=== PATIENT | female | born 1965 | race Caucasian/White ===

== ENCOUNTER → 2020-10-28 13:24 | Outpatient (BNVA) | payer OTHER, SELFPAY | PROVIDERS: PCP Internal Medicine; Visit Provider Surgery ==

== ENCOUNTER 2020-12-01 07:01 | Outpatient (REF) | payer OTHER, SELFPAY ==
[2020-12-01 11:50] LABS: Cholesterol 210 mg/dL; HDL Cholesterol 77 mg/dL; LDL Cholesterol Calculated 114 mg/dl; Triglycerides 98 mg/dL
[2020-12-01 11:54] LABS: TSH reflex Free T4 4.91 uIU/mL (0.32-4.0)
[2020-12-01 12:39] LABS: Free T4 (Free Thyroxine) 0.89 ng/dL (0.71-1.85)
== END 2020-12-01 07:02 | disposition home or self-care (01) ==
LOC: HO.HMGCLDS 07:01
PROVIDERS: PCP Internal Medicine; Visit Provider Internal Medicine
DX: Z00.00 Encounter for general adult medical examination without abnormal findings (principal); E03.9 Hypothyroidism, unspecified; E78.5 Hyperlipidemia, unspecified
CPT/HCPCS: 36415; 80061; 84439; 84443

== ENCOUNTER 2020-12-07 13:10 | Outpatient (REF) | payer OTHER, SELFPAY ==
--- NOTE | ~2020-12-07 | CT_ITS ---
EXAMINATION: CT ABDOMEN AND PELVIS WITH CONTRAST CLINICAL INFORMATION: Ventral hernia without obstruction or gangrene COMPARISON: Previous CT of the abdomen and pelvis November 2018 TECHNIQUE: Multidetector volumetric images were obtained from the superior aspect of the liver through the pubic symphysis following administration 85 mL of Omnipaque 350 intravenous contrast. Sagittal and coronal reformatted images were obtained on the technologist's workstation. Oral contrast: Yes This CT examination was performed using dose optimization techniques as appropriate, variously including the following: *Automated exposure control *Adjustment of mA and/or kV according to patient size (this includes techniques or standardized protocols for targeted exams where dose is matched to indication/reason for exam; i.e. extremities or head) *Use of iterative reconstruction technique DLP: 769 mGy-cm FINDINGS: LUNG BASES: The visualized lung bases are unremarkable. LIVER, GALLBLADDER, AND BILIARY TREE: The liver is low in attenuation suggestive of fatty infiltration. The gallbladder has been removed. PANCREAS: Unremarkable. SPLEEN: Unremarkable. ADRENAL GLANDS: Unremarkable. KIDNEYS AND URETERS: The kidneys are normal in size, shape, and attenuation. No hydronephrosis, hydroureter, or calculi seen. There is a small low-attenuation lesion in the lower pole the left kidney that is stable and probably represents a small cyst. No perinephric stranding. BLADDER: Empty and not well evaluated. GASTROINTESTINAL TRACT: There is diverticulosis of the colon. There are postsurgical changes to the distal sigmoid colon. There is a large broad-based ventral hernia containing small and large bowel. There is no evidence of obstruction. The appendix is not identified. The stomach is unremarkable. ABDOMINAL WALL: There is evidence of previous ventral hernia repair with mesh. There is a large recurrent broad-based abdominal wall hernia containing small and large bowel at the inferior margin of the mesh. There is no evidence of obstruction. LYMPH NODES: Normal. VASCULAR: Unremarkable. PELVIC VISCERA: The has been removed. There is a new 1.5 x 1.7 cm right pelvic cyst questionable for a right adnexal cyst. This is similar to previous exam. OSSEOUS STRUCTURES: There are mild degenerative changes of the spine. There is curvature of the lower lumbar spine to the right. There is soft tissue calcification or ossification adjacent to the right greater trochanter. CT/CT abdomen pelvis w con IMPRESSION: Large broad-based ventral hernia at the inferior margin of the mesh containing small and large bowel. No evidence of obstruction. Diverticulosis of the colon. No evidence of diverticulitis. Postsurgical changes to the distal sigmoid colon. Fatty liver. Stable small right pelvic cyst probably representing an adnexal cyst.
[2020-12-07 15:09] LABS: Blood Urea Nitrogen 14 mg/dL (9-16); Estimated Glomerular Filt Rate > 60
== END 2020-12-07 13:11 | disposition home or self-care (01) ==
LOC: HO.CT 13:10
PROVIDERS: PCP Internal Medicine; Visit Provider Surgery
DX: K43.9 Ventral hernia without obstruction or gangrene (principal)
CPT/HCPCS: 36415; 74177; 82565; 84520

== ENCOUNTER → 2020-12-10 12:57 | Outpatient (BNVA) | payer OTHER, SELFPAY | PROVIDERS: PCP Internal Medicine; Visit Provider Surgery | DX: K43.9 Ventral hernia without obstruction or gangrene (principal) | CPT/HCPCS: 99212 ==

== ENCOUNTER 2021-02-22 06:52 | Outpatient (REF) | payer OTHER, SELFPAY ==
[2021-02-22 12:00] LABS: Alanine Aminotransferase 20 U/L (0-31); Albumin Level 4.3 g/dL (3.5-5.0); Alkaline Phosphatase 78 U/L (39-117); Anion Gap 11 (12-20); Aspartate Amino Transferase 21 U/L (5-31); Bilirubin Total 0.7 mg/dL (0.0-1.0); Blood Urea Nitrogen 17 mg/dL (9-16); Calcium 9.3 mg/dL (8.4-10.2); Carbon Dioxide 29 mmol/L (22-29); Chloride 104 mmol/L (96-108); Estimated Glomerular Filt Rate > 60; Glucose Fasting 103 mg/dL (60-99); Potassium 4.2 mmol/L (3.3-5.1); Sodium 140 mmol/L (135-145); Total Protein 6.9 g/dL (6.5-8.0)
[2021-02-22 12:06] LABS: TSH reflex Free T4 1.66 uIU/mL (0.32-4.0)
== END 2021-02-22 06:53 | disposition home or self-care (01) ==
LOC: HO.HMGCLDS 06:52
PROVIDERS: PCP Internal Medicine; Visit Provider Internal Medicine
DX: E78.5 Hyperlipidemia, unspecified (principal); E03.9 Hypothyroidism, unspecified
CPT/HCPCS: 36415; 80053; 84443

== ENCOUNTER 2021-03-04 13:06 | Outpatient (REF) | payer OTHER, SELFPAY ==
--- NOTE | ~2021-03-04 | XR_ITS ---
EXAMINATION: XR CERVICAL SPINE CLINICAL INFORMATION: Cervical/neck pain COMPARISON: Radiographs cervical spine 10/07/2016. TECHNIQUE: 3 views of the cervical spine were obtained. FINDINGS: There is straightening cervical lordosis similar to prior exam 2017. There is no cervical vertebral compression, spondylolisthesis, destructive process, or prevertebral soft tissue swelling. The odontoid appears intact. There are mild degenerative disc changes again seen at C5-C6 and C6-C7 with disc narrowing and vertebral spurring. No erosive changes. XR/XR cervical spine 2V IMPRESSION: Degenerative disc changes C5-C6 and C6-C7.
--- NOTE | ~2021-03-04 | XR_ITS ---
EXAMINATION: BILATERAL SHOULDER. CLINICAL INFORMATION: Bilateral shoulder pain. COMPARISON: None TECHNIQUE: 3 views each shoulder. FINDINGS: Right shoulder: There is mild reduction in right AC joint and glenohumeral joint spaces with mild periarticular spurring. No acute fracture, dislocation or lytic process seen. The soft tissues are normal. Left shoulder: There is loss of left AC joint and minimal joint space with periarticular spurring. No acute fracture, dislocation or lytic process seen. The soft tissues are normal. XR/XR shoulder RT min 2V IMPRESSION: Mild degenerative changes bilateral shoulder joints slightly worse in the right shoulder joint.
--- NOTE | ~2021-03-04 | XR_ITS ---
EXAMINATION: XR LUMBOSACRAL SPINE CLINICAL INFORMATION: M54.5 - Low back pain COMPARISON: CT abdomen and pelvis 12/07/2020, radiographs lumbar spine 10/07/2016 TECHNIQUE: Three views of the lumbosacral spine. FINDINGS: There is normal lumbar segmentation with 5 nonrib-bearing lumbar vertebrae of normal height and normal lumbar lordosis. Again, there is a gentle levocurvature lumbar spine. There is no lumbar vertebral compression, spondylolisthesis, or destructive process. Again, mild degenerative changes are present with multilevel vertebral body spurring. There are borderline degenerative disc changes at T12-L1 and L1-L2. Mild facet degeneration is present at lumbosacral junction. The SI joints and visualized sacrum are unremarkable. The bowel gas is normal. There are surgical clips again noted overlying central pelvis and mesh tacks from prior hernia repair. XR/XR lumbar spine 2-3V IMPRESSION: 1. Mild degenerative changes with multilevel vertebral spurring. 2. Borderline disc narrowing T12-L1 and L1-L2. Mild facet degeneration L5-S1. 3. No vertebral compression, spondylolisthesis, destructive process.
--- NOTE | ~2021-03-04 | XR_ITS ---
EXAMINATION: BILATERAL SHOULDER. CLINICAL INFORMATION: Bilateral shoulder pain. COMPARISON: None TECHNIQUE: 3 views each shoulder. FINDINGS: Right shoulder: There is mild reduction in right AC joint and glenohumeral joint spaces with mild periarticular spurring. No acute fracture, dislocation or lytic process seen. The soft tissues are normal. Left shoulder: There is loss of left AC joint and minimal joint space with periarticular spurring. No acute fracture, dislocation or lytic process seen. The soft tissues are normal. XR/XR shoulder LT min 2V IMPRESSION: Mild degenerative changes bilateral shoulder joints slightly worse in the right shoulder joint.
== END 2021-03-04 13:07 | disposition home or self-care (01) ==
LOC: HO.HMGCX 13:06
PROVIDERS: PCP Internal Medicine; Visit Provider Internal Medicine
DX: M54.5 Low back pain (principal); M25.511 Pain in right shoulder; M25.512 Pain in left shoulder
CPT/HCPCS: 72040; 72100; 73030

== ENCOUNTER → 2021-03-09 12:52 | Outpatient (BNVA) | payer OTHER, SELFPAY | PROVIDERS: PCP Internal Medicine; Visit Provider Orthopaedic Surgery | DX: M75.41 Impingement syndrome of right shoulder (principal) | CPT/HCPCS: 20610; 99202; J1040 ==

== ENCOUNTER → 2021-03-11 11:11 | Outpatient (BNVA) | payer OTHER, SELFPAY | PROVIDERS: PCP Internal Medicine; Visit Provider Dietitian, Registered | DX: E66.9 Obesity, unspecified (principal); E78.5 Hyperlipidemia, unspecified; E03.9 Hypothyroidism, unspecified; Z68.39 Body mass index [BMI] 39.0-39.9, adult; Z88.1 Allergy status to other antibiotic agents; Z88.0 Allergy status to penicillin; Z88.2 Allergy status to sulfonamides; Z88.8 Allergy status to other drugs, medicaments and biological substances | CPT/HCPCS: 97802 ==

== ENCOUNTER → 2021-04-22 10:24 | Outpatient (BNVA) | payer OTHER, SELFPAY | PROVIDERS: PCP Internal Medicine; Visit Provider Dietitian, Registered | DX: E66.9 Obesity, unspecified (principal) | CPT/HCPCS: 97803 ==

== ENCOUNTER → 2021-06-03 10:28 | Outpatient (BNVA) | payer OTHER, SELFPAY | PROVIDERS: PCP Internal Medicine; Visit Provider Dietitian, Registered | DX: E66.9 Obesity, unspecified (principal) | CPT/HCPCS: 97803 ==

== ENCOUNTER 2021-06-28 06:47 | Outpatient (REF) | payer OTHER, SELFPAY ==
[2021-06-28 11:42] LABS: Hematocrit 42.5 % (37.0-47.0); Hemoglobin 13.4 g/dl (12.0-16.0); Mean Corpuscular HGB Conc 31.5 g/dl (31.0-35.0); Mean Corpuscular Hemoglobin 26.5 pg (27.0-33.0); Mean Platelet Volume 10.6 fL (9.4-12.3); Platelet Count 252 X10*3/uL (160-400); Red Blood Count 5.06 X10*6/uL (4.20-5.50); Red Cell Distribution Width 14.4 % (11.0-16.0); White Blood Count 6.5 X10*3/uL (4.8-10.8)
[2021-06-28 11:54] LABS: Estimated Average Glucose 111 mg/dL; Hemoglobin A1c % 5.5 %
[2021-06-28 12:03] LABS: Alanine Aminotransferase 19 U/L (0-31); Albumin Level 4.3 g/dL (3.5-5.0); Alkaline Phosphatase 80 U/L (39-117); Anion Gap 14 (12-20); Aspartate Amino Transferase 20 U/L (5-31); Bilirubin Total 0.7 mg/dL (0.0-1.0); Blood Urea Nitrogen 13 mg/dL (9-16); Calcium 9.3 mg/dL (8.4-10.2); Carbon Dioxide 28 mmol/L (22-29); Chloride 105 mmol/L (96-108); Cholesterol 223 mg/dL; Estimated Glomerular Filt Rate > 60; Glucose Fasting 106 mg/dL (60-99); HDL Cholesterol 68 mg/dL; LDL Cholesterol Calculated 136 mg/dl; Potassium 3.9 mmol/L (3.3-5.1); Sodium 143 mmol/L (135-145); Total Protein 6.8 g/dL (6.5-8.0); Triglycerides 95 mg/dL
[2021-06-28 12:15] LABS: TSH reflex Free T4 1.77 uIU/mL (0.32-4.0)
== END 2021-06-28 06:48 | disposition home or self-care (01) ==
LOC: HO.HMGCLDS 06:47
PROVIDERS: PCP Internal Medicine; Visit Provider Internal Medicine
DX: Z00.00 Encounter for general adult medical examination without abnormal findings (principal); E03.9 Hypothyroidism, unspecified; E78.5 Hyperlipidemia, unspecified; M79.7 Fibromyalgia
CPT/HCPCS: 36415; 80053; 80061; 83036; 84443; 85027

== ENCOUNTER → 2021-08-03 10:49 | Outpatient (BNVA) | payer OTHER, SELFPAY | PROVIDERS: PCP Internal Medicine; Visit Provider Dietitian, Registered | DX: E66.9 Obesity, unspecified (principal) | CPT/HCPCS: 97803 ==

== ENCOUNTER 2021-09-21 07:00 | Outpatient (REF) | payer OTHER, SELFPAY ==
[2021-09-21 11:31] LABS: Hematocrit 43.3 % (37.0-47.0); Hemoglobin 13.6 g/dl (12.0-16.0); Mean Corpuscular HGB Conc 31.4 g/dl (31.0-35.0); Mean Corpuscular Hemoglobin 26.4 pg (27.0-33.0); Mean Corpuscular Volume 84.1 fL (80.0-98.0); Mean Platelet Volume 10.7 fL (9.4-12.3); Platelet Count 277 X10*3/uL (160-400); Red Blood Count 5.15 X10*6/uL (4.20-5.50); Red Cell Distribution Width 14.7 % (11.0-16.0); White Blood Count 6.9 X10*3/uL (4.8-10.8)
[2021-09-21 11:57] LABS: Estimated Average Glucose 114 mg/dL; Hemoglobin A1c % 5.6 %
[2021-09-21 12:09] LABS: TSH reflex Free T4 2.19 uIU/mL (0.32-4.0)
[2021-09-21 12:16] LABS: Alanine Aminotransferase 16 U/L (0-31); Albumin Level 4.2 g/dL (3.5-5.0); Alkaline Phosphatase 88 U/L (39-117); Anion Gap 12 (12-20); Aspartate Amino Transferase 16 U/L (5-31); Bilirubin Total 0.5 mg/dL (0.0-1.0); Blood Urea Nitrogen 20 mg/dL (9-16); Calcium 9.4 mg/dL (8.4-10.2); Carbon Dioxide 29 mmol/L (22-29); Chloride 106 mmol/L (96-108); Cholesterol 226 mg/dL; Estimated Glomerular Filt Rate > 60; Glucose Fasting 109 mg/dL (60-99); HDL Cholesterol 68 mg/dL; LDL Cholesterol Calculated 142 mg/dl; Potassium 4.1 mmol/L (3.3-5.1); Sodium 143 mmol/L (135-145); Total Protein 7.1 g/dL (6.5-8.0); Triglycerides 82 mg/dL
== END 2021-09-21 07:01 | disposition home or self-care (01) ==
LOC: HO.HMGCLDS 07:00
PROVIDERS: Visit Provider Internal Medicine
DX: E03.9 Hypothyroidism, unspecified (principal); E78.5 Hyperlipidemia, unspecified; R73.9 Hyperglycemia, unspecified
CPT/HCPCS: 36415; 80053; 80061; 83036; 84443; 85027

== ENCOUNTER → 2021-11-02 13:44 | Outpatient (BNVA) | payer OTHER, SELFPAY | PROVIDERS: PCP Internal Medicine; Visit Provider Dietitian, Registered | DX: E66.9 Obesity, unspecified (principal); M79.7 Fibromyalgia; R73.9 Hyperglycemia, unspecified; E03.9 Hypothyroidism, unspecified; E78.5 Hyperlipidemia, unspecified; Z68.39 Body mass index [BMI] 39.0-39.9, adult; Z88.1 Allergy status to other antibiotic agents; Z88.0 Allergy status to penicillin; Z88.2 Allergy status to sulfonamides; Z88.8 Allergy status to other drugs, medicaments and biological substances; Z98.84 Bariatric surgery status; Z45.89 Encounter for adjustment and management of other implanted devices; Z71.3 Dietary counseling and surveillance | CPT/HCPCS: 97803 ==

== ENCOUNTER 2022-03-14 06:53 | Outpatient (REF) | payer OTHER, SELFPAY ==
[2022-03-14 11:34] LABS: Estimated Average Glucose 114 mg/dL; Hemoglobin A1c % 5.6 %
[2022-03-14 12:03] LABS: Alanine Aminotransferase 15 U/L (0-31); Albumin Level 4.2 g/dL (3.5-5.0); Alkaline Phosphatase 75 U/L (39-117); Anion Gap 14 (12-20); Aspartate Amino Transferase 18 U/L (5-31); Bilirubin Total 0.4 mg/dL (0.0-1.0); Blood Urea Nitrogen 14 mg/dL (9-16); Calcium 9.2 mg/dL (8.4-10.2); Carbon Dioxide 25 mmol/L (22-29); Chloride 107 mmol/L (96-108); Cholesterol 221 mg/dL; Estimated Glomerular Filt Rate > 60; Glucose Fasting 103 mg/dL (60-99); HDL Cholesterol 73 mg/dL; LDL Cholesterol Calculated 128 mg/dl; Sodium 142 mmol/L (135-145); Total Protein 6.7 g/dL (6.5-8.0); Triglycerides 102 mg/dL
== END 2022-03-14 06:54 | disposition home or self-care (01) ==
LOC: HO.HMGCLDS 06:53
PROVIDERS: Visit Provider Internal Medicine
DX: E03.9 Hypothyroidism, unspecified (principal); E78.5 Hyperlipidemia, unspecified; R73.9 Hyperglycemia, unspecified
CPT/HCPCS: 36415; 80053; 80061; 83036

== ENCOUNTER → 2022-04-19 15:39 | Outpatient (REF) | payer OTHER, SELFPAY | LOC: HO.SL 15:39 | PROVIDERS: PCP Internal Medicine; Visit Provider Internal Medicine | DX: G47.30 Sleep apnea, unspecified (principal); R06.83 Snoring | CPT/HCPCS: 95806 ==

== ENCOUNTER 2022-09-20 07:22 | Outpatient (REF) | payer OTHER, SELFPAY ==
[2022-09-20 11:40] LABS: MANUAL DIFF FLAG NO
[2022-09-20 11:57] LABS: Basophils Absolute Auto 0.1 X10*3/uL (0.0-0.2); Basophils Percent Auto 0.8 % (0-2); Eosinophils Absolute Auto 0.7 X10*3/uL (0.0-0.4); Eosinophils Percent Auto 10.1 % (0-4); Hematocrit 43.8 % (37.0-47.0); Hemoglobin 13.9 g/dl (12.0-16.0); Imm Gran Abs Auto 0.01 X10*3/uL (0.00-0.03); Imm Gran Pct Auto 0.2 % (0.0-0.4); Lymphocytes Absolute Auto 1.6 X10*3/uL (1.2-4.9); Lymphocytes Percent Auto 24.2 % (20-40); Mean Corpuscular HGB Conc 31.7 g/dl (31.0-35.0); Mean Corpuscular Hemoglobin 26.6 pg (27.0-33.0); Mean Corpuscular Volume 83.9 fL (80.0-98.0); Mean Platelet Volume 10.7 fL (9.4-12.3); Monocytes Absolute Auto 0.4 X10*3/uL (0.1-1.2); Monocytes Percent Auto 6.6 % (2-11); Neutrophils Absolute Auto 3.8 x10*3/uL (2.0-8.3); Neutrophils Percent Auto 58.1 % (45-73); Platelet Count 270 X10*3/uL (160-400); Red Blood Count 5.22 X10*6/uL (4.20-5.50); Red Cell Distribution Width 13.8 % (11.0-16.0); White Blood Count 6.5 X10*3/uL (4.8-10.8)
[2022-09-20 12:18] LABS: Estimated Average Glucose 111 mg/dL; Hemoglobin A1c % 5.5 %
[2022-09-20 12:35] LABS: Alanine Aminotransferase 20 U/L (0-31); Albumin Level 4.2 g/dL (3.5-5.0); Alkaline Phosphatase 86 U/L (39-117); Anion Gap 15 (12-20); Aspartate Amino Transferase 20 U/L (5-31); Bilirubin Total 0.6 mg/dL (0.0-1.0); Blood Urea Nitrogen 16 mg/dL (9-16); Calcium 9.3 mg/dL (8.4-10.2); Carbon Dioxide 28 mmol/L (22-29); Chloride 105 mmol/L (96-108); Cholesterol 215 mg/dL; Estimated Glomerular Filt Rate > 60; Glucose Fasting 105 mg/dL (60-99); HDL Cholesterol 70 mg/dL; LDL Cholesterol Calculated 126 mg/dl; Potassium 4.2 mmol/L (3.3-5.1); Sodium 144 mmol/L (135-145); TSH reflex Free T4 4.55 uIU/mL (0.32-4.0); Total Protein 6.6 g/dL (6.5-8.0); Triglycerides 97 mg/dL
[2022-09-20 12:38] LABS: Creatinine Urine 198.21 mg/dL
[2022-09-20 13:49] LABS: Free T4 (Free Thyroxine) 0.95 ng/dL (0.71-1.85)
== END 2022-09-20 07:23 | disposition home or self-care (01) ==
LOC: HO.HMGCLDS 07:22
PROVIDERS: PCP Internal Medicine; Visit Provider Internal Medicine
DX: E03.9 Hypothyroidism, unspecified (principal); E78.5 Hyperlipidemia, unspecified; R73.9 Hyperglycemia, unspecified
CPT/HCPCS: 36415; 80053; 80061; 82043; 83036; 84439; 84443; 85025

== ENCOUNTER 2023-02-13 06:45 | Outpatient (REF) | payer OTHER, SELFPAY ==
[2023-02-13 12:13] LABS: TSH reflex Free T4 3.82 uIU/mL (0.32-4.0)
== END 2023-02-13 06:46 | disposition home or self-care (01) ==
LOC: HO.HMGCLDS 06:45
PROVIDERS: PCP Internal Medicine; Visit Provider Internal Medicine
DX: E03.9 Hypothyroidism, unspecified (principal)
CPT/HCPCS: 36415; 84443

== ENCOUNTER 2023-03-06 13:25 | Outpatient (AMB) | payer OTHER, SELFPAY ==
[2023-03-06 14:09] VITALS: BP 102/60; PULSE 82; TEMP 35.7; O2SAT 97
--- NOTE | 2023-03-06 14:09 | MHC.OFFWIV ---
Intake Vital Signs 03/06/23 14:09 Height 5 ft 5 in BP 102/60 Blood Pressure Location Lt brachial Position Sitting Pulse 82 Pulse Source Pulse Oximeter Temp 96.3 F L Temp Source Temporal Artery Scan Pulse Oximetry (%) 97 Oxygen Delivery Method Room Air Intake Visit Reasons: EP, Abdominal Pain Intake Note: Pt is here c/o abdominal pain. Patient Tobacco Use Status: Never used Tobacco Allergies ciprofloxacin [From CIPRO] Allergy (Intermediate, Verified 03/06/23 14:50) RASH Penicillins [PENICILLINS] Allergy (Intermediate, Verified 03/06/23 14:50) RASH ropinirole [From REQUIP] Allergy (Intermediate, Verified 03/06/23 14:50) RASH sulfamethoxazole [From BACTRIM] Allergy (Intermediate, Verified 03/06/23 14:50) RASH Medication List - Last Reconciled 03/06/23 by Luis F De Luna MD acetaminophen ER (Tylenol 8 Hour) 650 mg PO Q8H albuterol sulfate 90 mcg/actuation (ProAir HFA) 2 puffs inhalation Q6H PRN albuterol sulfate mg inhalation azithromycin take 500 mg today (day 1), then 250 mg for 4 days (days 2-5) PO budesonide-formoterol 160-4.5 mcg/actuation (Symbicort) 2 puffs inhalation BID 90 days [Centrum Organic Multivitamin 2 once a day] cholecalciferol (vitamin D3) 25 mcg PO DAILY clotrimazole-betamethasone 1-0.05 % appl topical [Fiber well fit 1 gummy a day ] levothyroxine 75 mcg PO DAILY magnesium oxide PO DAILY melatonin 5 mg PO BEDTIME pyridoxine (vitamin B6) 100 mg PO DAILY Do you need a note to return to daycare/school/sports/work: No HPI EP, Abdominal Pain HPI Details 57-year-old female presents to the office for a sick visit. Patient is complaining of pain in her lower abdomen for the past 3 days. She has had diarrhea for 1 day. No fevers or chills. Reports symptoms of burning on urination. [facility] Medical History (Updated 10/11/22 @ 08:27 by Vicky Walsh MD) Abdominal wall hernia Annual physical exam Chronic asthma Depression Fibromyalgia History of mammogram Hyperglycemia Hyperlipidemia Hypothyroid Lumbar pain Neck pain Obesity Postoperative abdominal hernia Shoulder pain, bilateral Vertigo Surgical History H/O colonoscopy H/O oophorectomy H/O: hysterectomy (1987) History of cholecystectomy (03/10/15) History of foot surgery (2011) History of hernia repair (2017) History of removal of laparoscopic gastric banding device (2010) History of total hysterectomy (08/2002) History of varicose vein stripping (01/2016) Hx of laparoscopic gastric banding (07/2008) Family History Mother History of rheumatoid arthritis History of diabetes mellitus, type II Father History of stomach cancer History of cirrhosis of liver Mental health disorder Social History Housing: House Alcohol intake: current Alcohol intake frequency: holidays/special occasions only Patient Tobacco Use Status: Never used Tobacco e-Cigarette/Vaping Use: Never Used Second Hand Smoke Exposure: No service: No Current occupational status: unemployed Current occupation: Left Handed Current occupational exposures/hazards: No Cognitive needs: No Hearing needs: No Vision needs: Yes Physical Exam Vital Signs: Last Vital Signs Temp 96.3 F L 03/06/23 14:09 Pulse 82 03/06/23 14:09 BP 102/60 03/06/23 14:09 Pulse Ox 97 03/06/23 14:09 Oxygen Delivery Method Room Air 03/06/23 14:09 Const General: cooperative and healthy appearing Nutritional Appearance: well nourished Orientation/consciousness: patient oriented x3 Limitations: no limitations HEENT Head: Yes normal to inspection Eyes General: appearance normal, both eyes and all related structures Neck Neck: Yes normal visual inspection Chest Chest palpation & inspection: normal palpation of entire chest wall Resp Effort & Inspection: normal respiratory effort GI Other: Abdomen: Bowel sounds heard in all quadrants. Minimal discomfort in the right lower quadrant. Neuro General: patient oriented x3 Results AMB Urinalysis, Automated UA Leukoctes 0 Rhoda/uL Last Edit by Tata Underwood CMA on 03/06/23 14:16 UA Nitrite Negative Last Edit by Tata Underwood CMA on 03/06/23 14:16 UA Urobilinogen 0.2 mg/dL Last Edit by Tata Underwood CMA on 03/06/23 14:16 UA Protein 0 mg/dL Last Edit by Tata Underwood CMA on 03/06/23 14:16 UA pH 6.0 Last Edit by Tata Underwood CMA on 03/06/23 14:16 UA Blood 25 Tyshawn/uL Last Edit by Tata Underwood, JERED on 03/06/23 14:16 UA Specific Retsof 1.010 Last Edit by Tata Underwood, JERED on 03/06/23 14:16 UA Ketone Negative Last Edit by Tata Underwood CMA on 03/06/23 14:16 UA Bilirubin 0 mg/dL Last Edit by Tata Underwood CMA on 03/06/23 14:16 UA Glucose 0 mg/dL Last Edit by Tata Underwood CMA on 03/06/23 14:16 Results Reviewed Results Reviewed: Laboratory Last Values Urine pH (Auto) 6.0 03/06/23 14:15 Specific [place]so[place] (Auto) 1.010 03/06/23 14:15 Urine Protein (Auto) 0 mg/dL 03/06/23 14:15 Glucose (UA)(Auto) 0 mg/dL 03/06/23 14:15 Urine Ketones (Auto) Negative 03/06/23 14:15 Urine Blood (Auto) 25 Tyshawn/uL 03/06/23 14:15 Urine Nitrite (Auto) Negative 03/06/23 14:15 Urine Bilirubin (Auto) 0 mg/dL 03/06/23 14:15 Urine Urobilinogen (Auto) 0.2 mg/dL 03/06/23 14:15 Leukocyte Esterase (Auto) 0 Rhoda/uL 03/06/23 14:15 Assessment & Plan Assessment & Plan Orders: Orders AMB Urinalysis Automated Today Z13.9 - Encounter for screening, unspecified Medications: New azithromycin take 500 mg today (day 1), then 250 mg for 4 days (days 2-5) PO 6 tabs 0RF Coding Level of Care Code Est Pt Level 3 (85049) Diagnoses
== END 2023-03-06 14:58 | disposition home or self-care (01) ==
PROVIDERS: PCP Internal Medicine; Visit Provider Internal Medicine
DX: R10.9 Unspecified abdominal pain (principal)
CPT/HCPCS: 81003; 99213

== ENCOUNTER 2023-04-21 15:14 | Outpatient (AMB) | payer OTHER, SELFPAY ==
[2023-04-21 15:31] VITALS: BP 120/70; PULSE 76; TEMP 36.8; O2SAT 98; BMI 37.6
--- NOTE | 2023-04-21 15:31 | AM.OFFWIN_ITS ---
Intake Vital Signs 04/21/23 15:31 Height 5 ft 5 in Weight 226 lb BMI 37.6 BP 120/70 Blood Pressure Location Rt brachial Position Sitting Pulse 76 Pulse Source Pulse Oximeter Temp 98.2 F Temp Source Temporal Artery Scan Pulse Oximetry (%) 98 Oxygen Delivery Method Room Air Intake Visit Reasons: EP Post COVID 04/11/23 Intake Note: pt is here for c/o covid symptoms would like to be swabbed for covid Patient Tobacco Use Status: Never used Tobacco Allergies ciprofloxacin [From CIPRO] Allergy (Intermediate, Verified 04/21/23 15:32) RASH Penicillins [PENICILLINS] Allergy (Intermediate, Verified 04/21/23 15:32) RASH ropinirole [From REQUIP] Allergy (Intermediate, Verified 04/21/23 15:32) RASH sulfamethoxazole [From BACTRIM] Allergy (Intermediate, Verified 04/21/23 15:32) RASH Do you need a note to return to daycare/school/sports/work: No HPI HPI Comments History of Present Illness Details This is a 57-year-old female who presents to the office today for sick visit. Patient complaining of chest congestion and dry cough x3 days in the setting of recent COVID-19. Patient states she tested positive for COVID-19 on 04/11/2023. She states she had fever/chills for approximately 3 days, but this has resolved. She reports mild sore throat and headache, but these have also resolved. She also reports mild sinus pain/congestion, nasal congestion, and rhinorrhea but these have essentially resolved as well. Patient is now complaining of chest congestion, dry cough, and dyspnea with heavy exertion. She has a history of asthma but ran out of her albuterol nebulizer solution. [facility] Medical History (Updated 10/11/22 @ 08:27 by Vicky Walsh MD) Abdominal wall hernia Annual physical exam Chronic asthma Depression Fibromyalgia History of mammogram Hyperglycemia Hyperlipidemia Hypothyroid Lumbar pain Neck pain Obesity Postoperative abdominal hernia Shoulder pain, bilateral Vertigo Surgical History H/O colonoscopy H/O oophorectomy H/O: hysterectomy (1987) History of cholecystectomy (03/10/15) History of foot surgery (2011) History of hernia repair (2018) History of removal of laparoscopic gastric banding device (2010) History of total hysterectomy (08/2002) History of varicose vein stripping (01/2016) Hx of laparoscopic gastric banding (07/2008) Family History Mother History of rheumatoid arthritis History of diabetes mellitus, type II Father History of stomach cancer History of cirrhosis of liver Mental health disorder Social History Housing: House Alcohol intake: current Alcohol intake frequency: holidays/special occasions only Patient Tobacco Use Status: Never used Tobacco e-Cigarette/Vaping Use: Never Used Second Hand Smoke Exposure: No service: No Current occupational status: unemployed Current occupation: Left Handed Current occupational exposures/hazards: No Cognitive needs: No Hearing needs: No Vision needs: Yes Review of Systems Const All systems reviewed & are unremarkable except as noted in HPI and below Reports no additional complaints Eyes Reports no additional complaints ENT Reports no additional complaints Card Reports no additional complaints Resp Reports no additional complaints GI Reports no additional complaints Reports no additional complaints Musc Reports no additional complaints Skin/Breast Reports system reviewed and no additional complaints, except as documented Neuro Reports no additional complaints Psych Reports no additional complaints Endo Reports no additional complaints Brennen/Lymph Reports no additional complaints Aller/Immun Reports no additional complaints Physical Exam Vital Signs: Last Vital Signs Temp 98.2 F 04/21/23 15:31 Pulse 76 04/21/23 15:31 BP 120/70 04/21/23 15:31 Pulse Ox 98 04/21/23 15:31 Oxygen Delivery Method Room Air 04/21/23 15:31 BMI result Body Mass Index 37.6 Const General: cooperative, healthy appearing, no acute distress and well developed Orientation/consciousness: patient oriented x3 HEENT Head: Yes normal to inspection Ears: hearing grossly normal bilaterally General nose exam: Normal external nose present Face and sinus: Yes normal facial exam Mouth: Normal oral and palatal mucosa present Eyes General: appearance normal, both eyes and all related structures Pupils: Equal, round and reactive pupils present EOM: EOMs intact bilaterally Resp Effort & Inspection: normal respiratory effort and no respiratory distress Auscultation: clear to auscultation bilaterally Cardio Rate: regular rate Rhythm: regular rhythm Heart sounds: no gallops, no murmurs and no rubs Peripheral pulses: Peripheral pulses 2+ throughout GI Inspection: No distended Palpation (GI): Soft to palpation and nontender Auscultation: normal bowel sounds Skin General skin exam: no rashes or lesions noted Neuro General: patient oriented x3 Cranial nerves: Yes CN's II-XII intact bilaterally and Yes Equal, round and reactive pupils present Gait exam (Neuro): Normal gait present Motor exam (neuro): 5/5 motor strength present throughout Extrem General: Yes normal to inspection, Yes full ROM and Yes no clubbing, cyanosis or edema Psych Appearance: grossly normal Mental Status: mental status grossly normal Assessment & Plan Assessment & Plan (1) COVID-19: Code(s): U07.1 - COVID-19 (2) Cough: Code(s): R05.9 - Cough, unspecified Plan This is a 57-year-old female with past medical history significant for asthma who presents to the office complaining of chest congestion, dry cough, and dyspnea with heavy exertion in the setting of COVID-19. Patient's vital signs are stable, her physical exam is benign with lungs clear to auscultation bilaterally, and she is overall nontoxic appearing. Patient is safe to be discharged home. Her history and physical are most consistent with an acute asthmatic bronchitis in the setting of COVID-19/viral URI. Patient sent home on p.o. prednisone 40 mg daily x5 days. Refill sent for patient's albuterol nebulizer solution. Chest x-ray was ordered to evaluate for pneumonia. Start antibiotics if x-ray shows infiltrate. Otherwise, recommended symptomatic management including rest, increased fluids, advil/tylenol for pain/fever as long as she has no medical contraindications, and over the counter throat lozenges/decongestants. Patient advised to follow up here or go to the emergency room for worsening/persistent symptoms. Patient verbalized her understanding and she is in agreement with the plan. Orders: Orders XR chest 2V Today R05.9 - Cough, unspecified Medications: New albuterol sulfate 5 mg inhalation Q6H PRN 30 ea 0RF shortness of breath or wheezing benzonatate 100 mg PO TID PRN 10 caps 0RF cough prednisone 40 mg (2 x 20 mg) PO DAILY 10 tabs 0RF Coding Level of Care Code Est Pt Level 3 (83667) Diagnoses COVID-19 U07.1 Cough R05.9
== END 2023-04-21 16:48 | disposition home or self-care (01) ==
PROVIDERS: PCP Internal Medicine; Visit Provider Physician Assistant Medical
DX: U07.1 COVID-19 (principal); R05.9 Cough, unspecified
CPT/HCPCS: 99213

== ENCOUNTER 2023-04-21 16:20 | Outpatient (REF) | payer OTHER, SELFPAY ==
--- NOTE | ~2023-04-21 | XR_ITS ---
EXAMINATION: XR CHEST CLINICAL INFORMATION: Cough COMPARISON: 11/29/2018 TECHNIQUE: 2 views of the chest were obtained. FINDINGS: No significant abnormality is noted involving the heart, lungs, mediastinum, bony thorax or soft tissues. XR/XR chest 2V IMPRESSION: Unremarkable examination.
== END 2023-04-21 16:21 | disposition home or self-care (01) ==
LOC: HO.HMGCX 16:20
PROVIDERS: PCP Internal Medicine; Visit Provider Physician Assistant Medical
DX: R05.9 Cough, unspecified (principal)
CPT/HCPCS: 71046

== ENCOUNTER 2023-04-26 13:14 | Outpatient (REF) | payer OTHER, SELFPAY ==
[2023-04-26 17:14] LABS: MANUAL DIFF FLAG NO
[2023-04-26 17:17] LABS: Basophils Absolute Auto 0.1 X10*3/uL (0.0-0.2); Basophils Percent Auto 0.4 % (0-2); Eosinophils Absolute Auto 0.2 X10*3/uL (0.0-0.4); Eosinophils Percent Auto 1.8 % (0-4); Hematocrit 43.4 % (37.0-47.0); Hemoglobin 13.6 g/dl (12.0-16.0); Imm Gran Abs Auto 0.09 X10*3/uL (0.00-0.03); Imm Gran Pct Auto 0.7 % (0.0-0.4); Lymphocytes Percent Auto 23.7 % (20-40); Mean Corpuscular HGB Conc 31.3 g/dl (31.0-35.0); Mean Corpuscular Hemoglobin 26.4 pg (27.0-33.0); Mean Corpuscular Volume 84.3 fL (80.0-98.0); Mean Platelet Volume 10.5 fL (9.4-12.3); Monocytes Absolute Auto 0.9 X10*3/uL (0.1-1.2); Monocytes Percent Auto 6.7 % (2-11); Neutrophils Absolute Auto 8.5 x10*3/uL (2.0-8.3); Neutrophils Percent Auto 66.7 % (45-73); Platelet Count 355 X10*3/uL (160-400); Red Blood Count 5.15 X10*6/uL (4.20-5.50); White Blood Count 12.8 X10*3/uL (4.8-10.8)
[2023-04-26 17:34] LABS: Estimated Average Glucose 108 mg/dL; Hemoglobin A1c % 5.4 % (<6.0)
[2023-04-26 18:04] LABS: Alanine Aminotransferase 18 U/L (0-31); Albumin Level 4.2 g/dL (3.5-5.0); Alkaline Phosphatase 80 U/L (39-117); Anion Gap 12 (12-20); Aspartate Amino Transferase 16 U/L (5-31); Bilirubin Total 0.4 mg/dL (0.0-1.0); Blood Urea Nitrogen 18 mg/dL (9-16); Calcium 9.8 mg/dL (8.4-10.2); Carbon Dioxide 30 mmol/L (22-29); Chloride 106 mmol/L (96-108); Estimated Glomerular Filt Rate > 60; Glucose Fasting 86 mg/dL (60-99); Potassium 3.6 mmol/L (3.3-5.1); Sodium 144 mmol/L (135-145)
[2023-04-26 18:10] LABS: TSH reflex Free T4 2.18 uIU/mL (0.32-4.0)
== END 2023-04-26 13:15 | disposition home or self-care (01) ==
LOC: HO.HMGCLDS 13:14
PROVIDERS: PCP Internal Medicine; Visit Provider Internal Medicine
DX: E03.9 Hypothyroidism, unspecified (principal); E78.5 Hyperlipidemia, unspecified
CPT/HCPCS: 36415; 80053; 83036; 84443; 85025

== ENCOUNTER 2023-05-04 12:55 | Outpatient (AMB) | payer OTHER, MEDICAID, SELFPAY ==
--- NOTE | 2023-05-04 13:09 | MHC.OFFWIV ---
Intake Vital Signs 05/04/23 13:10 Weight 241 lb BP 112/64 Blood Pressure Location Rt brachial Position Sitting Pulse 70 Pulse Source Pulse Oximeter Pulse Oximetry (%) 97 Oxygen Delivery Method Room Air Intake Visit Reasons: EST/asthma flair up Intake Note: Patient here for some trouble with her asthma and has slight cough. she mentioned she had covid not long ago. Patient Tobacco Use Status: Never used Tobacco Allergies ciprofloxacin [From CIPRO] Allergy (Intermediate, Verified 05/04/23 13:12) RASH Penicillins [PENICILLINS] Allergy (Intermediate, Verified 05/04/23 13:12) RASH ropinirole [From REQUIP] Allergy (Intermediate, Verified 05/04/23 13:12) RASH sulfamethoxazole [From BACTRIM] Allergy (Intermediate, Verified 05/04/23 13:12) RASH Do you need a note to return to daycare/school/sports/work: No HPI HPI Comments History of Present Illness Details 57-year-old female history of asthma that presents for post COVID symptoms. Patient had COVID-19 approximately 2 weeks ago and has since been dealing with some exertional dyspnea, fatigue and cough. Patient called the office and discuss with the nurse her most recent blood work which was taken on the given her symptoms with her most recent lab work showing some abnormalities they recommended she come in and be seen evaluated in the walk-in clinic. She denies chest pain fever [facility] Medical History (Updated 10/11/22 @ 08:27 by Vicky Walsh MD) Hyperglycemia Lumbar pain Shoulder pain, bilateral Vertigo Obesity Depression Annual physical exam Hypothyroid Hyperlipidemia Abdominal wall hernia Fibromyalgia Neck pain Postoperative abdominal hernia Chronic asthma History of mammogram Surgical History History of cholecystectomy (03/10/15) History of varicose vein stripping (01/2016) History of foot surgery (2011) History of removal of laparoscopic gastric banding device (2010) History of hernia repair (2017) Hx of laparoscopic gastric banding (07/2008) History of total hysterectomy (08/2002) H/O oophorectomy H/O: hysterectomy (1987) H/O colonoscopy Family History Mother History of rheumatoid arthritis History of diabetes mellitus, type II Father History of stomach cancer History of cirrhosis of liver [facility] health disorder Social History Housing: House Alcohol intake: current Alcohol intake frequency: holidays/special occasions only Patient Tobacco Use Status: Never used Tobacco e-Cigarette/Vaping Use: Never Used Second Hand Smoke Exposure: No service: No Current occupational status: unemployed Current occupation: Left Handed Current occupational exposures/hazards: No Cognitive needs: No Hearing needs: No Vision needs: Yes Review of Systems Const All systems reviewed & are unremarkable except as noted in HPI and below Card Reports dyspnea on exertion Resp Reports cough and Reports dyspnea on exertion Physical Exam Vital Signs: Last Vital Signs Pulse 70 05/04/23 13:10 BP 112/64 05/04/23 13:10 Pulse Ox 97 05/04/23 13:10 Oxygen Delivery Method Room Air 05/04/23 13:10 Const General: cooperative, no acute distress and alert Orientation/consciousness: patient oriented x3 Limitations: no limitations HEENT Head: Yes normal to inspection Ears: hearing grossly normal bilaterally and external ears normal General nose exam: Normal external nose present Eyes General: appearance normal, both eyes and all related structures Neck Neck: Yes normal visual inspection Chest Chest palpation & inspection: normal inspection of the chest Resp Effort & Inspection: normal respiratory effort, able to speak in complete sentences and no audible wheezes Auscultation: clear to auscultation bilaterally Cardio Rate: regular rate Rhythm: regular rhythm GI Inspection: Yes normal to inspection Palpation (GI): Soft to palpation and nontender Skin General skin exam: no rashes or lesions noted Neuro General: patient oriented x3 Psych Appearance: grossly normal Mental Status: mental status grossly normal Speech and movement: Normal speech and movement present Affect: normal affect Attitude: cooperative Thought process: Normal thought process present Thought content: Normal thought content present Assessment & Plan Assessment & Plan (1) Cough: Code(s): R05.9 - Cough, unspecified Qualifiers: Cough type: subacute Qualified Code(s): R05.2 - Subacute cough Plan VSS. Exam patient presents alert oriented mild cough present lung sounds clear to auscultation bilaterally no expiratory wheeze. No lower extremity edema or calf tenderness or swelling. Patient likely suffering from post COVID symptoms. With regard to patient's abnormal lab work. White blood cell count was mildly elevated likely margination. With for regard to patient's elevated CO2 also mildly elevated by 1 point patient's sister asthma likely irrelevant. Will recommend patient continue with symptomatic treatment at home follow-up with PCP as needed. Discharge instructions, follow up and treatment are discussed with patient in my usual fashion. Alternatives in treatment are also discussed. The patient will return for worsening symptoms or as needed. Advised that any labs/imaging ordered will be followed up on and contact made if further treatment needed. Counseled that patient's condition may require further evaluation and/or treatment. Symptoms of concern for worsening disorder discussed in detail in my customary manner. Patient does verbalize understanding of the plan, there are no apparent barriers to communication. The patient is given the opportunity to ask questions and have them answered to his/her satisfaction Coding Level of Care Code Est Pt Level 3 (13068) Diagnoses Subacute cough R05.2 Cough type: subacute
[2023-05-04 13:10] VITALS: BP 112/64; PULSE 70; O2SAT 97
== END 2023-05-04 14:03 | disposition home or self-care (01) ==
PROVIDERS: PCP Internal Medicine; Visit Provider Physician Assistant
DX: R05.2 Subacute cough (principal)
CPT/HCPCS: 99213

== ENCOUNTER 2023-05-18 07:20 | Outpatient (AMB) | payer OTHER, MEDICAID, SELFPAY ==
[2023-05-18 07:43] VITALS: BP 118/80; PULSE 59; O2SAT 99; BMI 40.0
--- NOTE | 2023-05-18 07:43 | MHC.PC.OV ---
Vital Signs 05/18/23 07:43 Height 5 ft 5 in Weight 240 lb 6 oz BMI 40.0 BP 118/80 Blood Pressure Location Rt brachial Position Sitting Pulse 59 Pulse Source Pulse Oximeter Pulse Oximetry (%) 99 Oxygen Delivery Method Room Air Intake Visit Reasons: Follow up after Covid Allergies ciprofloxacin [From CIPRO] Allergy (Intermediate, Verified 05/18/23 07:45) RASH Penicillins [PENICILLINS] Allergy (Intermediate, Verified 05/18/23 07:45) RASH ropinirole [From REQUIP] Allergy (Intermediate, Verified 05/18/23 07:45) RASH sulfamethoxazole [From BACTRIM] Allergy (Intermediate, Verified 05/18/23 07:45) RASH Medication List - Last Reconciled 05/18/23 by Vicky Walsh MD acetaminophen ER (Tylenol 8 Hour) 650 mg PO Q8H albuterol sulfate mg inhalation albuterol sulfate 90 mcg/actuation (ProAir HFA) 2 puffs inhalation Q6H albuterol sulfate 5 mg inhalation Q6H PRN budesonide-formoterol 160-4.5 mcg/actuation (Symbicort) 2 puffs inhalation BID 90 days cholecalciferol (vitamin D3) 25 mcg PO DAILY ibuprofen-diphenhydramine cit 200-38 mg (Motrin PM) 2 caps PO BEDTIME PRN levothyroxine 75 mcg PO DAILY melatonin 5 mg PO BEDTIME pyridoxine (vitamin B6) 100 mg PO DAILY Tobacco use date assessed: 05/18/23 Dental Screening Dental Screen Date: 05/18/23 Did you have a dental visit in the last 12 months?: Yes Did you have a dental problem in the last 6 months where you did not have access to dental care?: No Was dental information given to patient?: Patient has dentist HPI Follow up after Covid HPI Details Pt c/o worsening constipation and lower abd and pelvic pain with some nausea for 1 week. Pt has been taking Metamucil and stool softeners and laxatives on and off. Patient denies fever chills vomiting hematochezia melena. She has a history of diverticulosis. Asthma is stable on Symbicort PFSH Medical History (Updated 05/18/23 @ 08:12 by Vicky Walsh MD) Hyperglycemia Lumbar pain Shoulder pain, bilateral Vertigo Obesity Depression Annual physical exam Hypothyroid Hyperlipidemia Abdominal wall hernia Fibromyalgia Neck pain Postoperative abdominal hernia Chronic asthma History of mammogram Surgical History History of cholecystectomy (03/10/15) History of varicose vein stripping (01/2016) History of foot surgery (2011) History of removal of laparoscopic gastric banding device (2010) History of hernia repair (2017) Hx of laparoscopic gastric banding (07/2008) History of total hysterectomy (08/2002) H/O oophorectomy H/O: hysterectomy (1987) H/O colonoscopy Family History Mother History of rheumatoid arthritis History of diabetes mellitus, type II Father History of stomach cancer History of cirrhosis of liver Mental health disorder Social History Housing: House Alcohol intake: current Alcohol intake frequency: holidays/special occasions only Patient Tobacco Use Status: Never used Tobacco e-Cigarette/Vaping Use: Never Used Second Hand Smoke Exposure: No service: No Current occupational status: unemployed Current occupation: Left Handed Current occupational exposures/hazards: No Cognitive needs: No Hearing needs: No Vision needs: Yes Questionnaire Thrive Questionnaire Date Thrive assessed: 10/11/22 KRYSTAL-7 AMB Questionnaire KRYSTAL-7 Date KRYSTAL - 7 assessed: 10/11/22 Source: Developed by Drs. Hung Beckett, Jumana Woo, Jake Tom and colleagues, with an educational nalini from [employer]. Review of Systems Const All systems reviewed & are unremarkable except as noted in HPI and below Reports no additional complaints Eyes Reports no additional complaints ENT Reports no additional complaints Card Reports no additional complaints Resp Reports no additional complaints GI Reports no additional complaints Reports no additional complaints Physical exam (Primary Care) Vital Signs: Last Vital Signs Pulse 59 05/18/23 07:43 BP 118/80 05/18/23 07:43 Pulse Ox 99 05/18/23 07:43 Oxygen Delivery Method Room Air 05/18/23 07:43 BMI result Body Mass Index 40.0 Tobacco/Smoking Status: Tobacco use Status Tobacco use date assessed 05/18/23 05/18/23 07:48 Patient Tobacco Use Status Never used Tobacco 05/18/23 07:48 e-Cigarette/Vaping Use Never Used 05/18/23 07:48 Thrive Assessment: Date of Thrive Assessment Date Thrive assessed 10/11/22 05/18/23 07:48 Const General: no acute distress HENMT Head: Yes normal to inspection Ears: hearing grossly normal bilaterally Face and sinus: Yes normal facial exam Throat: Yes posterior oropharynx normal Neck Neck: Yes supple Resp Effort & Inspection: normal respiratory effort Auscultation: clear to auscultation bilaterally Cardio Rhythm: regular rhythm Heart sounds: S1 normal heart sound present and S2 normal heart sound present GI Inspection: Yes normal to inspection Palpation (GI): Soft to palpation and Tenderness to palpation present (GI) in the LLQ; with no rebound tenderness Percussion: Yes normal to percussion Assessment and Plan Assessment & Plan (1) Diverticulitis: Code(s): K57.92 - Diverticulitis of intestine, part unspecified, without perforation or abscess without bleeding Plan: Obtain CT of the abdomen and pelvis to evaluate for diverticulitis, check CBC comprehensive today. Constipation treatment discussed with the patient. Patient will be scheduled for do colonoscopy with GI Orders: Orders Comprehensive Met. Panel Today K57.92 - Diverticulitis of intestine, part unspecified, without perforation or abscess without bleeding Urine Culture Today K57.92 - Diverticulitis of intestine, part unspecified, without perforation or abscess without bleeding CT abdomen pelvis wo/w IV con Today K57.92 - Diverticulitis of intestine, part unspecified, without perforation or abscess without bleeding Complete Blood Count Auto Diff Today K57.92 - Diverticulitis of intestine, part unspecified, without perforation or abscess without bleeding Coding Level of Care Code Est Pt Level 3 (84363) Diagnoses Diverticulitis K57.92
== END 2023-05-18 08:29 | disposition home or self-care (01) ==
PROVIDERS: PCP Internal Medicine; Visit Provider Internal Medicine
DX: K57.92 Diverticulitis of intestine, part unspecified, without perforation or abscess without bleeding (principal)
CPT/HCPCS: 99213

== ENCOUNTER 2023-05-18 13:01 | Outpatient (REF) | payer OTHER, MEDICAID, SELFPAY ==
[2023-05-18 16:10] LABS: MANUAL DIFF FLAG NO
[2023-05-18 16:29] LABS: Basophils Percent Auto 0.5 % (0-2); Eosinophils Absolute Auto 0.4 X10*3/uL (0.0-0.4); Eosinophils Percent Auto 4.7 % (0-4); Hematocrit 43.6 % (37.0-47.0); Hemoglobin 13.9 g/dl (12.0-16.0); Imm Gran Abs Auto 0.02 X10*3/uL (0.00-0.03); Imm Gran Pct Auto 0.3 % (0.0-0.4); Lymphocytes Absolute Auto 1.7 X10*3/uL (1.2-4.9); Lymphocytes Percent Auto 22.1 % (20-40); Mean Corpuscular HGB Conc 31.9 g/dl (31.0-35.0); Mean Corpuscular Hemoglobin 26.7 pg (27.0-33.0); Mean Corpuscular Volume 83.8 fL (80.0-98.0); Mean Platelet Volume 10.1 fL (9.4-12.3); Monocytes Absolute Auto 0.5 X10*3/uL (0.1-1.2); Monocytes Percent Auto 5.8 % (2-11); Neutrophils Absolute Auto 5.2 x10*3/uL (2.0-8.3); Neutrophils Percent Auto 66.6 % (45-73); Platelet Count 279 X10*3/uL (160-400); Red Cell Distribution Width 14.5 % (11.0-16.0); White Blood Count 7.7 X10*3/uL (4.8-10.8)
[2023-05-18 16:33] LABS: Alanine Aminotransferase 22 U/L (0-31); Albumin Level 4.1 g/dL (3.5-5.0); Alkaline Phosphatase 71 U/L (39-117); Anion Gap 13 (12-20); Aspartate Amino Transferase 25 U/L (5-31); Bilirubin Total 0.4 mg/dL (0.0-1.0); Blood Urea Nitrogen 11 mg/dL (9-16); Calcium 9.6 mg/dL (8.4-10.2); Carbon Dioxide 27 mmol/L (22-29); Chloride 106 mmol/L (96-108); Estimated Glomerular Filt Rate > 60; Glucose Random 106 mg/dL (60-115); Potassium 3.7 mmol/L (3.3-5.1); Sodium 142 mmol/L (135-145); Total Protein 7.2 g/dL (6.5-8.0)
== END 2023-05-18 13:02 | disposition home or self-care (01) ==
LOC: HO.HMGCLDS 13:01
PROVIDERS: PCP Internal Medicine; Visit Provider Internal Medicine
DX: K57.92 Diverticulitis of intestine, part unspecified, without perforation or abscess without bleeding (principal); R82.90 Unspecified abnormal findings in urine
CPT/HCPCS: 36415; 80053; 85025; 87086

== ENCOUNTER 2023-05-23 11:20 | Outpatient (REF) | payer OTHER, MEDICAID, SELFPAY ==
--- NOTE | ~2023-05-23 | CT_ITS ---
EXAMINATION: CT ABDOMEN AND PELVIS WITH CONTRAST CLINICAL INFORMATION: Pain. COMPARISON: None available. TECHNIQUE: Multidetector volumetric images were obtained from the superior aspect of the liver through the pubic symphysis following administration 85 mL of Omnipaque 350 intravenous contrast. Sagittal and coronal reformatted images were obtained on the technologist's workstation. Oral contrast: No This CT examination was performed using dose optimization techniques as appropriate, variously including the following: *Automated exposure control *Adjustment of mA and/or kV according to patient size (this includes techniques or standardized protocols for targeted exams where dose is matched to indication/reason for exam; i.e. extremities or head) *Use of iterative reconstruction technique DLP: 775 mGy-cm FINDINGS: LUNG BASES: The visualized lung bases are unremarkable. LIVER, GALLBLADDER, AND BILIARY TREE: The liver is of mild diminished attenuation. No focal liver lesions are seen. There is no intrahepatic biliary duct dilatation. There has been a prior cholecystectomy. PANCREAS: Unremarkable. SPLEEN: Unremarkable. ADRENAL GLANDS: Unremarkable. KIDNEYS AND URETERS: The kidneys are normal in size, shape, and attenuation. No hydronephrosis, hydroureter, or calculi seen. No perinephric stranding. BLADDER: Unremarkable. GASTROINTESTINAL TRACT: There is diffuse diverticulosis without evidence for acute diverticulitis. The appendix is not identified. ABDOMINAL WALL: There is a large abdominal wall defect containing fat and segments of both large and small bowel without bowel obstruction. A upper abdominal wall hernia repair mesh is noted. LYMPH NODES: Normal. VASCULAR: Unremarkable. PELVIC VISCERA: Pelvic surgical clips are noted. OSSEOUS STRUCTURES: There is mild diffuse thoracolumbar disc degenerative change with mild curvature to the left. CT/CT abdomen pelvis w IV con IMPRESSION: Diffuse diverticulosis without diverticulitis. Fatty infiltration of the liver. Abdominal wall defect/hernia containing loops of bowel without bowel obstruction. Similar findings were present previously. Fleischner guidelines were followed.
[2023-05-23] MEDS: Barium Sulfate Oral (Mocha) 450 ML ORAL.SUSP 900 ML PO (14:08)
[2023-05-23] MEDS: iohexoL 350 MG/ML 100 ML INFUS..BTL 85 ML IV (14:08)
== END 2023-05-23 11:21 | disposition home or self-care (01) ==
LOC: HO.CT 11:20
PROVIDERS: PCP Internal Medicine; Visit Provider Internal Medicine
DX: K57.92 Diverticulitis of intestine, part unspecified, without perforation or abscess without bleeding (principal)
CPT/HCPCS: 74177; Q9967

== ENCOUNTER 2023-10-04 06:10 | Outpatient (REF) | payer OTHER, MEDICAID, SELFPAY ==
[2023-10-04 11:46] LABS: Basophils Absolute Auto 0.1 X10*3/uL (0.0-0.2); Basophils Percent Auto 0.7 % (0-2); Eosinophils Absolute Auto 0.5 X10*3/uL (0.0-0.4); Eosinophils Percent Auto 6.8 % (0-4); Hematocrit 42.7 % (37.0-47.0); Hemoglobin 13.8 g/dl (12.0-16.0); Imm Gran Abs Auto 0.02 X10*3/uL (0.00-0.03); Imm Gran Pct Auto 0.3 % (0.0-0.4); Lymphocytes Absolute Auto 1.7 X10*3/uL (1.2-4.9); Lymphocytes Percent Auto 21.6 % (20-40); MANUAL DIFF FLAG NO; Mean Corpuscular HGB Conc 32.3 g/dl (31.0-35.0); Mean Corpuscular Volume 83.4 fL (80.0-98.0); Mean Platelet Volume 10.7 fL (9.4-12.3); Monocytes Absolute Auto 0.5 X10*3/uL (0.1-1.2); Monocytes Percent Auto 6.6 % (2-11); Neutrophils Absolute Auto 4.9 x10*3/uL (2.0-8.3); Platelet Count 248 X10*3/uL (160-400); Red Blood Count 5.12 X10*6/uL (4.20-5.50); Red Cell Distribution Width 13.9 % (11.0-16.0); White Blood Count 7.6 X10*3/uL (4.8-10.8)
[2023-10-04 12:02] LABS: Estimated Average Glucose 111 mg/dL; Hemoglobin A1c % 5.5 % (<6.0)
[2023-10-04 12:56] LABS: Alanine Aminotransferase 15 U/L (0-31); Alkaline Phosphatase 80 U/L (39-117); Anion Gap 14 (12-20); Aspartate Amino Transferase 18 U/L (5-31); Bilirubin Total 0.5 mg/dL (0.0-1.0); Blood Urea Nitrogen 16 mg/dL (9-16); Calcium 9.6 mg/dL (8.4-10.2); Carbon Dioxide 28 mmol/L (22-29); Chloride 105 mmol/L (96-108); Cholesterol 205 mg/dL (<200); Estimated Glomerular Filt Rate > 60; Glucose Fasting 97 mg/dL (60-99); HDL Cholesterol 67 mg/dL (>40); LDL Cholesterol Calculated 121 mg/dL (<100); Potassium 3.9 mmol/L (3.3-5.1); Sodium 143 mmol/L (135-145); Total Protein 6.9 g/dL (6.5-8.0); Triglycerides 88 mg/dL (<150)
[2023-10-04 13:17] LABS: TSH reflex Free T4 3.11 uIU/mL (0.32-4.0); Vitamin D 25-OH Total 52.7 ng/mL (>30)
== END 2023-10-04 06:11 | disposition home or self-care (01) ==
LOC: HO.HMGCLDS 06:10
PROVIDERS: PCP Internal Medicine; Visit Provider Internal Medicine
DX: Z00.00 Encounter for general adult medical examination without abnormal findings (principal); E03.9 Hypothyroidism, unspecified; R73.9 Hyperglycemia, unspecified; E78.5 Hyperlipidemia, unspecified
CPT/HCPCS: 36415; 80053; 80061; 82306; 83036; 84443; 85025

== ENCOUNTER 2023-12-21 07:29 | Outpatient (AMB) | payer OTHER, MEDICAID, SELFPAY ==
[2023-12-21 07:34] VITALS: BP 122/80; PULSE 73; O2SAT 96; BMI 40.3
--- NOTE | 2023-12-21 07:34 | MHC.PC.OV ---
Vital Signs 12/21/23 07:34 Height 5 ft 5 in Weight 242 lb BMI 40.3 BP 122/80 Blood Pressure Location Lt brachial Position Sitting Pulse 73 Pulse Source Pulse Oximeter Pulse Oximetry (%) 96 Oxygen Delivery Method Room Air Intake Visit Reasons: Annual PE Intake Note: Pt is here today for her PE Allergies ciprofloxacin [From CIPRO] Allergy (Intermediate, Verified 12/21/23 07:35) RASH Penicillins [PENICILLINS] Allergy (Intermediate, Verified 12/21/23 07:35) RASH ropinirole [From REQUIP] Allergy (Intermediate, Verified 12/21/23 07:35) RASH sulfamethoxazole [From BACTRIM] Allergy (Intermediate, Verified 12/21/23 07:35) RASH Medication List - Last Reconciled 12/21/23 by Vicky Walsh MD acetaminophen ER (Tylenol 8 Hour) 650 mg PO Q8H albuterol sulfate 5 mg inhalation Q6H PRN budesonide-formoterol 160-4.5 mcg/actuation (Symbicort) 2 puffs inhalation BID 90 days carboxymethylcellulose sodium 0.5% (Refresh Tears) 1 drp ophthalmic (eye) BID cholecalciferol (vitamin D3) 25 mcg PO DAILY clotrimazole 1% 1 appl topical BID ibuprofen-diphenhydramine cit 200-38 mg (Motrin PM) 2 caps PO BEDTIME PRN levothyroxine 75 mcg PO DAILY melatonin 5 mg PO BEDTIME Tobacco use date assessed: 12/21/23 Dental Screening Dental Screen Date: 12/21/23 Did you have a dental visit in the last 12 months?: Yes Did you have a dental problem in the last 6 months where you did not have access to dental care?: Yes Was dental information given to patient?: Patient has dentist HPI Annual PE HPI Details Pt is for PE.She c/o persistent L ear fullness and decreased hearing since August. Pt c/o chronic rhinitis. Asthma controlled on Symbicort. [facility] Medical History (Updated 12/21/23 @ 08:24 by Vicky Walsh MD) Hyperglycemia Lumbar pain Shoulder pain, bilateral Vertigo (~12/21/23) Obesity Depression Annual physical exam Hypothyroid Hyperlipidemia Abdominal wall hernia Fibromyalgia Neck pain Postoperative abdominal hernia Chronic asthma History of mammogram Surgical History History of cholecystectomy (03/10/15) History of varicose vein stripping (01/2016) History of foot surgery (2011) History of removal of laparoscopic gastric banding device (2010) History of hernia repair (2017) Hx of laparoscopic gastric banding (07/2008) History of total hysterectomy (08/2002) H/O oophorectomy H/O: hysterectomy (1987) H/O colonoscopy Family History Mother History of rheumatoid arthritis History of diabetes mellitus, type II Father History of stomach cancer History of cirrhosis of liver Mental health disorder Social History Housing: House Alcohol intake: current Alcohol intake frequency: holidays/special occasions only Patient Tobacco Use Status: Never used Tobacco e-Cigarette/Vaping Use: Never Used Second Hand Smoke Exposure: No service: No Current occupational status: unemployed Current occupation: Left Handed Current occupational exposures/hazards: No Cognitive needs: No Hearing needs: No Vision needs: Yes Questionnaire PHQ-9 Over the last 2 weeks, how often have you been bothered by any of the following problems? 1. Little interest or pleasure in doing things: several days 2. Feeling down, depressed, or hopeless: several days 3. Trouble falling or staying asleep, or sleeping too much: nearly every day 4. Feeling tired or having little energy: several days 5. Poor appetite or overeating: not at all 6. Feeling bad about yourself - or that you are a failure or have let yourself or your family down: not at all 7. Trouble concentrating on things, such as reading the newspaper or watching television: not at all 8. Moving or speaking so slowly that other people could have noticed. Or the opposite - being so fidgety or restless that you have been moving around a lot more than usual: not at all 9. Thoughts that you would be better off or of hurting yourself in some way: not at all Total score: 6 Depression Screening Interpretation: Negative Depression Screening Done: Yes Source: Developed by Drs. Hung Beckett, Jumana Woo, Jake Tom and colleagues, with an educational nalini from [employer]. Thrive Questionnaire Date Thrive assessed: 12/21/23 I am a: Patient What is your living situation today?: I have a steady place to live Within the past 12 months, did the food you bought not last and you didn't have the money to get more?: Never true Within the past 12 months, did you worry whether your food would run out before you got money to buy more?: Never true Do you have trouble paying for medicines?: No Do you have trouble getting transportation to medical appointments?: No Do you have trouble paying your heating and electricity bill?: No Do you have trouble taking care of your child, family member or friend?: I choose not to answer this question Do you have trouble with day-to-day activities such as bathing, preparing meals, shopping, managing finances, etc.?: I choose not to answer this question Are you currently unemployed and looking for a job?: I choose not to answer this question Are you interested in more education?: Yes Please select the resources that you would like help with: None THRIVE Score: 0 AUDIT C Alcohol Use Questionnaire (AUDIT-C) 1. How often do you have a drink containing alcohol?: Monthly or less 2. How many drinks containing alcohol do you have on a typical day when you are drinking?: 1 or 2 3. How often do you have six or more drinks on one occasion?: Less than monthly Total Score: 2 KRYSTAL-7 AMB Questionnaire KRYSTAL-7 Date KRYSTAL - 7 assessed: 12/21/23 Feeling nervous, anxious, or on edge: 3 = Nearly every day Not being able to stop or control worryin = More than half the days Worrying too much about different things: 3 = Nearly every day Trouble relaxin = Nearly every day Being so restless that it is hard to sit still: 3 = Nearly every day Becoming easily annoyed or irritable: 0 = Not at all Feeling afraid as if something awful might happen: 0 = Not at all Total KRYSTAL-7 score (0-4 normal; 5-9 mild; 10-14 moderate; 15-21 severe): 14 Source: Developed by Drs. Hung Beckett, Jumana Woo, Jake Tom and colleagues, with an educational nalini from [employer]. Review of Systems Const All systems reviewed & are unremarkable except as noted in HPI and below Eyes Reports no additional complaints ENT Reports no additional complaints Card Reports no additional complaints Resp Reports no additional complaints GI Reports no additional complaints Reports no additional complaints Physical exam (Primary Care) Vital Signs: Last Vital Signs Pulse 73 12/21/23 07:34 BP 122/80 12/21/23 07:34 Pulse Ox 96 12/21/23 07:34 Oxygen Delivery Method Room Air 12/21/23 07:34 BMI result Body Mass Index 40.3 Tobacco/Smoking Status: Tobacco use Status Tobacco use date assessed 12/21/23 12/21/23 07:35 Patient Tobacco Use Status Never used Tobacco 12/21/23 07:35 e-Cigarette/Vaping Use Never Used 12/21/23 07:35 PHQ-9: PHQ-9 Score PHQ-9: Total score 6 12/21/23 08:06 Depression Screening Interpretation: Negative Thrive Assessment: Date of Thrive Assessment Date Thrive assessed 12/21/23 12/21/23 07:58 Const General: no acute distress HENMT Head: Yes normal to inspection Ears: TM's normal bilaterally General nose exam: Abnormal mucous membranes and turbinates present erythematous Mouth: Normal oral and palatal mucosa present Eyes General: appearance normal, both eyes and all related structures Neck Neck: Yes no lymphadenopathy and Yes supple Resp Effort & Inspection: normal respiratory effort Auscultation: clear to auscultation bilaterally Cardio Rhythm: regular rhythm Heart sounds: S1 normal heart sound present and S2 normal heart sound present GI Inspection: Yes normal to inspection Palpation (GI): Soft to palpation Percussion: Yes normal to percussion Auscultation: normal bowel sounds Assessment and Plan Assessment & Plan (1) H/O colonoscopy: Comment: 2018, repeat in 5 yrs Code(s): Z98.890 - Other specified postprocedural states Plan: refer to GI (2) Hyperlipidemia: Comment: diet controlled Code(s): E78.5 - Hyperlipidemia, unspecified (3) Hypothyroid: Comment: cont Levothyroxine Code(s): E03.9 - Hypothyroidism, unspecified (4) Annual physical exam: Code(s): Z00.00 - Encounter for general adult medical examination without abnormal findings Plan: well balanced diet, regular exercise, weight loss discussed. Pt declined mammogram and pap Orders: Orders TSH reflex Free T4 1 Year E03.9 - Hypothyroidism, unspecified, E78.5 - Hyperlipidemia, unspecified, Z00.00 - Encounter for general adult medical examination without abnormal findings Comprehensive [place]. Panel Fast 1 Year E03.9 - Hypothyroidism, unspecified, E78.5 - Hyperlipidemia, unspecified, Z00.00 - Encounter for general adult medical examination without abnormal findings Lipid Panel 1 Year E03.9 - Hypothyroidism, unspecified, E78.5 - Hyperlipidemia, unspecified, Z00.00 - Encounter for general adult medical examination without abnormal findings Complete Blood Count Auto Diff 1 Year E03.9 - Hypothyroidism, unspecified, E78.5 - Hyperlipidemia, unspecified, Z00.00 - Encounter for general adult medical examination without abnormal findings Vitamin D 25-OH (D2 and D3) 1 Year E03.9 - Hypothyroidism, unspecified, E78.5 - Hyperlipidemia, unspecified, Z00.00 - Encounter for general adult medical examination without abnormal findings Referrals Gastroenterology Referral Z98.890 - Other specified postprocedural states Speech and Hearing Referral H91.90 - Unspecified hearing loss, unspecified ear Coding Level of Care Code Est Pt Prev Care 40-64y(19662) Diagnoses H/O colonoscopy Z98.890 Hyperlipidemia E78.5 Hypothyroid E03.9 Annual physical exam Z00.00
== END 2023-12-21 08:20 | disposition home or self-care (01) ==
PROVIDERS: Visit Provider Internal Medicine
DX: Z98.890 Other specified postprocedural states (principal); E78.5 Hyperlipidemia, unspecified; E03.9 Hypothyroidism, unspecified; Z00.00 Encounter for general adult medical examination without abnormal findings
CPT/HCPCS: 99396

== ENCOUNTER 2024-01-09 14:38 | Outpatient (AMB) | payer OTHER, MEDICAID, SELFPAY ==
--- NOTE | 2024-01-09 14:46 | A.OFFVIS_ITS ---
Vital Signs 01/09/24 14:49 Height 5 ft 5 in Weight 240 lb 4.862 oz BMI 40.0 BP 127/64 Blood Pressure Location Lt brachial Position Sitting Pulse 72 Intake Visit Reasons: Colonoscopy Screening Intake Note: Augusta presents in the office as a new patient colonoscopy screening. CC: She states that she does get constipation at times and she will have peristalsis she states it does not work properly for her to have a BM. Allergies ciprofloxacin [From CIPRO] Allergy (Intermediate, Verified 01/09/24 14:49) RASH Penicillins [PENICILLINS] Allergy (Intermediate, Verified 01/09/24 14:49) RASH ropinirole [From REQUIP] Allergy (Intermediate, Verified 01/09/24 14:49) RASH sulfamethoxazole [From BACTRIM] Allergy (Intermediate, Verified 01/09/24 14:49) RASH HPI HPI Colonoscopy Screening: Details: 58 year old? female with past medical history of chronic sinusitis, history of diverticulitis, chronic asthma, hyperglycemia, vertigo, obesity, depression, hypothyroidism, hyperlipidemia, abdominal wall hernia, fibromyalgia is here today for pre colonoscopy screening.? Patient was sent to us by her PCP.? ? Patient denies any gastrointestinal symptoms in the past or at present.? Maternal cousins were diagnosed with terminal colorectal cancer. Last colonoscopy was done in 2018. Patient was told that she had diverticulosis and no polyps, however due to family history of CRC patient should be on 5 year recall for colonoscopies. Patient had sigmoid colon resection for diverticulitis. Denies history of difficulty with sedation or anesthesia in the past.? Negative for history of sleep apnea.? Denies any history of cardiac, renal, pulmonary, or hepatic disease.?? No history of infectious? diseases like hepatitis A, B, C, HIV or tuberculosis.? Patient is not on any anticoagulation. Patient reports that she was supposed to go for repair of large abdominal wall hernia, seen here at the hospital by Dr. Montiel, however due to complicated hernia patient was sent to [facility]. Patient reports that surgeon at [facility] want her to lose 35 lb in order to do the surgery for her. Patient has not followed up with them yet. [facility] Medical History Hyperglycemia Lumbar pain Shoulder pain, bilateral Vertigo (~12/21/23) Obesity Depression Annual physical exam Hypothyroid Hyperlipidemia Abdominal wall hernia Fibromyalgia Neck pain Postoperative abdominal hernia Chronic asthma History of mammogram Surgical History History of cholecystectomy (03/10/15) History of varicose vein stripping (01/2016) History of foot surgery (2011) History of removal of laparoscopic gastric banding device (2010) History of hernia repair (2017) Hx of laparoscopic gastric banding (07/2008) History of total hysterectomy (08/2002) H/O oophorectomy H/O: hysterectomy (1987) H/O colonoscopy Family History Mother History of rheumatoid arthritis History of diabetes mellitus, type II Father History of stomach cancer History of cirrhosis of liver Mental health disorder Social History Housing: House Alcohol intake: current Alcohol intake frequency: holidays/special occasions only Patient Tobacco Use Status: Never used Tobacco e-Cigarette/Vaping Use: Never Used Second Hand Smoke Exposure: No service: No Current occupational status: unemployed Current occupation: Left Handed Current occupational exposures/hazards: No Cognitive needs: No Hearing needs: No Vision needs: Yes Review of Systems Const Denies weight gain and Denies weight loss ENT Reports no additional complaints, Denies dysphagia and Denies odynophagia Card Reports no additional complaints Resp Reports no additional complaints GI Denies abdominal pain, Denies belching, Denies melena, Reports bloating (Occasional), Reports constipation, Denies dysphagia, Denies excessive flatus, Denies dyspepsia, Denies heartburn, Denies diarrhea, Denies loose stools, Denies nausea, Denies odynophagia and Denies vomiting Reports no additional complaints Musc Reports no additional complaints Neuro Reports no additional complaints Psych Reports no additional complaints Endo Reports no additional complaints Physical Exam Vital Signs: Last Vital Signs Pulse 72 01/09/24 14:49 BP 127/64 01/09/24 14:49 BMI result Body Mass Index 40.0 Const General: no acute distress Nutritional Appearance: obese Orientation/consciousness: patient oriented x3 Resp Effort & Inspection: normal respiratory effort, able to speak in complete sentences, no tracheal deviation and symmetric chest movement Auscultation: clear to auscultation bilaterally Cardio Rate: regular rate GI Inspection: Yes distended and Yes obesity Palpation (GI): Soft to palpation, not firm, nontender and No hepatosplenomegaly present Auscultation: normal bowel sounds General: Yes no CVA tenderness Back/Spine/Pelvis Back: no CVA tenderness Skin General skin exam: elasticity normal, turgor normal and dry skin Neuro General: patient oriented x3 Psych Appearance: grossly normal Mental Status: mental status grossly normal Assessment & Plan Assessment & Plan (1) H/O colonoscopy: Code(s): Z98.890 - Other specified postprocedural states Category: Surgical (2) Screen for colon cancer: Code(s): Z12.11 - Encounter for screening for malignant neoplasm of colon Plan Patient denies any cardiac or respiratory symptoms.? Patient reports constipation sometimes no bowel movement for 2-3 days. Patient was taking Ex- Lax and was told by PCP to stop. Started taking fiber, however it was making her more constipated. Patient will start taking Dulcolax. Patient understand that she needs to have a good bowel prep before going for procedure. Patient denies any issues with anesthesia in the past.? Denies any history of sleep apnea.? No history infectious diseases in the past or present.? Not on any anticoagulation therapy.? No family or personal history of colon cancer or polyps.? Patient denies melena, hematochezia, unintentional weight loss or ribbon like stools.? Patient will return in 3 months to re-evaluate and go over the prep again. She will call our office if he will have any GI concerning symptoms. Patient was also encouraged to increase fluid intake and activity to promote better bowel motility. Patient is agreeable to this plan and verbalizes understanding of instructions. She was given the opportunity to ask questions and all questions answered. Thank you for allowing me to participate in her care Medications: New bisacodyl (Dulcolax (bisacodyl)) 10 mg (2 x 5 mg) PO BEDTIME 180 tabs 4RF Coding Level of Care Code New Pt Level 3 (57581) Diagnoses H/O colonoscopy Z98.890 Screen for colon cancer Z12.11 Time Spent (min) 40 Comment 30 minutes spent with patient and additional 10 minutes spent reviewing her records
[2024-01-09 14:49] VITALS: BP 127/64; PULSE 72; BMI 40.0
== END 2024-01-09 15:31 | disposition home or self-care (01) ==
PROVIDERS: PCP Internal Medicine; Visit Provider Nurse Practitioner Family
DX: Z98.890 Other specified postprocedural states (principal); Z12.11 Encounter for screening for malignant neoplasm of colon
CPT/HCPCS: 99203

== ENCOUNTER → 2024-01-09 14:38 | Outpatient (BNVA) | payer OTHER, MEDICAID, SELFPAY | PROVIDERS: PCP Internal Medicine; Visit Provider Nurse Practitioner Family | DX: Z01.818 Encounter for other preprocedural examination (principal) | CPT/HCPCS: 99202 ==

== ENCOUNTER 2024-04-16 13:44 | Outpatient (AMB) | payer OTHER, MEDICAID, SELFPAY ==
--- NOTE | 2024-04-16 13:56 | A.OFFVIS_ITS ---
Vital Signs 04/16/24 13:58 Height 5 ft 5 in Weight 245 lb 2.464 oz BMI 40.8 BP 118/80 Blood Pressure Location Rt brachial Position Sitting Pulse 58 Pulse Source Pulse Oximeter Pulse Oximetry (%) 97 Oxygen Delivery Method Room Air Intake Visit Reasons: 3 month follow up Intake Note: Augusta presents in office today for a scheduled 3 mos FUV. CC; Pt reports that they have been slightly improved since their last visit. Pt has found the dulcolax more helpful. Pt is also still interested in the process for treating the ventral hernia. Pt is still aware of the stipulations that are involved with this treatment. Pt also states that they are here to discuss their upcoming colo s/p. [employer] Required: No Accompanied by: Spouse Allergies ciprofloxacin [From CIPRO] Allergy (Intermediate, Verified 04/16/24 13:57) RASH Penicillins [PENICILLINS] Allergy (Intermediate, Verified 04/16/24 13:57) RASH ropinirole [From REQUIP] Allergy (Intermediate, Verified 04/16/24 13:57) RASH sulfamethoxazole [From BACTRIM] Allergy (Intermediate, Verified 04/16/24 13:57) RASH HPI HPI 3 month follow up: Details: LAST VISIT H/O colonoscopy Screen for colon cancer Plan Patient denies any cardiac or respiratory symptoms.? Patient reports constipation sometimes no bowel movement for 2-3 days. Patient was taking Ex-Lax and was told by PCP to stop. Started taking fiber, however it was making her more constipated. Patient will start taking Dulcolax. Patient understand that she needs to have a good bowel prep before going for procedure. Patient denies any issues with anesthesia in the past.? Denies any history of sleep apnea.? No history infectious diseases in the past or present.? Not on any anticoagulation therapy.? No family or personal history of colon cancer or polyps.? Patient denies melena, hematochezia, unintentional weight loss or ribbon like stools.? Patient will return in 3 months to re-evaluate and go over the prep again. She will call our office if he will have any GI concerning symptoms. Patient was also encouraged to increase fluid intake and activity to promote better bowel motility. Patient is agreeable to this plan and verbalizes understanding of instructions. She was given the opportunity to ask questions and all questions answered. ? Thank you for allowing me to participate in her care Medications New bisacodyl (Dulcolax (bisacodyl)) 10 mg (2 x 5 mg) PO BEDTIME 180 tabs 4RF TODAY'S VISIT [facility] Medical History Hyperglycemia Lumbar pain Shoulder pain, bilateral Vertigo (~12/21/23) Obesity Depression Annual physical exam Hypothyroid Hyperlipidemia Abdominal wall hernia Fibromyalgia Neck pain Postoperative abdominal hernia Chronic asthma History of mammogram Surgical History History of cholecystectomy (03/10/15) History of varicose vein stripping (01/2016) History of foot surgery (2011) History of removal of laparoscopic gastric banding device (2010) History of hernia repair (2017) Hx of laparoscopic gastric banding (07/2008) History of total hysterectomy (08/2002) H/O oophorectomy H/O: hysterectomy (1987) H/O colonoscopy Family History Mother History of rheumatoid arthritis History of diabetes mellitus, type II Father History of stomach cancer History of cirrhosis of liver Mental health disorder Social History Housing: House Alcohol intake: current Alcohol intake frequency: holidays/special occasions only Patient Tobacco Use Status: Never used Tobacco e-Cigarette/Vaping Use: Never Used Second Hand Smoke Exposure: No service: No Current occupational status: unemployed Current occupation: Left Handed Current occupational exposures/hazards: No Cognitive needs: No Hearing needs: No Vision needs: Yes Review of Systems Const Denies weight gain and Denies weight loss ENT Reports no additional complaints, Denies dysphagia and Denies odynophagia Card Reports no additional complaints Resp Reports no additional complaints GI Denies abdominal pain, Denies belching, Denies melena, Reports bloating (Occasional), Reports constipation, Denies dysphagia, Denies excessive flatus, Denies dyspepsia, Denies heartburn, Denies diarrhea, Denies loose stools, Denies nausea, Denies odynophagia and Denies vomiting Reports no additional complaints Musc Reports no additional complaints Neuro Reports no additional complaints Psych Reports no additional complaints Endo Reports no additional complaints Physical Exam Vital Signs: Last Vital Signs Pulse 58 04/16/24 13:58 BP 118/80 04/16/24 13:58 Pulse Ox 97 04/16/24 13:58 Oxygen Delivery Method Room Air 04/16/24 13:58 BMI result Body Mass Index 40.8 Const General: no acute distress Nutritional Appearance: obese Orientation/consciousness: patient oriented x3 Resp Effort & Inspection: normal respiratory effort, able to speak in complete sentences, no tracheal deviation and symmetric chest movement Auscultation: clear to auscultation bilaterally Cardio Rate: regular rate GI Other: Old surgical scar Inspection: Yes distended and Yes obesity Palpation (GI): Soft to palpation, not firm, nontender and No hepatosplenomegaly present Auscultation: normal bowel sounds General: Yes no CVA tenderness Back/Spine/Pelvis Back: no CVA tenderness Skin General skin exam: elasticity normal, turgor normal and dry skin Neuro General: patient oriented x3 Psych Appearance: grossly normal Mental Status: mental status grossly normal Assessment & Plan Assessment & Plan (1) H/O colonoscopy: Code(s): Z98.890 - Other specified postprocedural states Category: Surgical (2) Screen for colon cancer: Code(s): Z12.11 - Encounter for screening for malignant neoplasm of colon Plan Discussed with patient what to expect before during and after procedure. Patient has a history of colonoscopies in the past. No issues with anesthesia in the past. No history of sleep apnea. Not on any anticoagulation medication. Patient reports that she is moving her bowels better now that she is taking Dulcolax. Patient is still interested about figuring out who can do surgery for ventral hernia repair. Currently patient denies any abdominal pain or discomfort. Occasional bulging to right side of her abdomen. Message sent to Dr. Fraire for recommendations. Dr. Fraire will be doing her colonoscopy. Patient will be seen after the procedure, sooner on as needed basis. She is agreeable to this plan and verbalizes understanding of instructions. She was given the opportunity to ask questions and all questions answered. Thank you for allowing me to participate in her care Medications: New polyethylene glycol 3350 (Miralax) As directed by gastroenterology department at [facility] 238 grams PO ONCE 238 grams 0RF Z12.11 - Encounter for screening for malignant neoplasm of colon Discontinued budesonide-formoterol 160-4.5 mcg/actuation (Symbicort) Discontinued Reason: Patient no longer taking 2 puffs inhalation BID 90 days 30.6 grams 3RF Coding Level of Care Code Est Pt Level 3 (72278) Diagnoses H/O colonoscopy Z98.890 Screen for colon cancer Z12.11 Time Spent (min) 30 Comment 20 minutes spent with patient and additional 10 minutes spent reviewing her records
[2024-04-16 13:58] VITALS: BP 118/80; PULSE 58; O2SAT 97; BMI 40.8
== END 2024-04-16 15:17 | disposition home or self-care (01) ==
PROVIDERS: PCP Internal Medicine; Visit Provider Nurse Practitioner Family
DX: Z98.890 Other specified postprocedural states (principal); Z12.11 Encounter for screening for malignant neoplasm of colon
CPT/HCPCS: 99213

== ENCOUNTER → 2024-04-16 13:44 | Outpatient (BNVA) | payer OTHER, MEDICAID, SELFPAY | PROVIDERS: PCP Internal Medicine; Visit Provider Nurse Practitioner Family | DX: Z12.11 Encounter for screening for malignant neoplasm of colon (principal); Z98.890 Other specified postprocedural states | CPT/HCPCS: 99212 ==

== ENCOUNTER 2024-05-06 13:31 | Outpatient (AMB) | payer OTHER, MEDICAID, SELFPAY ==
--- NOTE | 2024-05-06 14:00 | AM.OFFWIN_ITS ---
Intake Vital Signs 05/06/24 14:01 Height 5 ft 5 in Weight 245 lb BMI 40.8 BP 118/74 Blood Pressure Location Rt brachial Position Sitting Pulse 65 Pulse Source Pulse Oximeter Temp 98.3 F Temp Source Oral Pulse Oximetry (%) 97 Oxygen Delivery Method Room Air Intake Visit Reasons: EP ?sinus infection Intake Note: pt c/o sinus congestion and pressure. Bilateral ear blockage, Productive cough, chills. Patient Tobacco Use Status: Never used Tobacco Allergies ciprofloxacin [From CIPRO] Allergy (Intermediate, Verified 05/06/24 14:01) RASH Penicillins [PENICILLINS] Allergy (Intermediate, Verified 05/06/24 14:01) RASH ropinirole [From REQUIP] Allergy (Intermediate, Verified 05/06/24 14:01) RASH sulfamethoxazole [From BACTRIM] Allergy (Intermediate, Verified 05/06/24 14:01) RASH Do you need a note to return to daycare/school/sports/work: No HPI HPI Comments History of Present Illness Details Patient presents to the walk in for 4 weeks cough, nasal congestion, headaches, facial pressure and bilateral ear pressure Has been taking antihistamines without improvement Endorses thick yellow discharge when she blows her nose Denies fever, chest pain, shortness of breath, palpitations, syncope, weakness Has been taking OTC medications with minimal improvement. [facility] Medical History Hyperglycemia Lumbar pain Shoulder pain, bilateral Vertigo (~12/21/23) Obesity Depression Annual physical exam Hypothyroid Hyperlipidemia Abdominal wall hernia Fibromyalgia Neck pain Postoperative abdominal hernia Chronic asthma History of mammogram Surgical History History of cholecystectomy (03/10/15) History of varicose vein stripping (01/2016) History of foot surgery (2011) History of removal of laparoscopic gastric banding device (2010) History of hernia repair (2017) Hx of laparoscopic gastric banding (07/2008) History of total hysterectomy (08/2002) H/O oophorectomy H/O: hysterectomy (1987) H/O colonoscopy Family History Mother History of rheumatoid arthritis History of diabetes mellitus, type II Father History of stomach cancer History of cirrhosis of liver Mental health disorder Social History (Reviewed 04/16/24 @ 14:02 by Darian Prakash [facility]) Housing: House Alcohol intake: current Alcohol intake frequency: holidays/special occasions only Patient Tobacco Use Status: Never used Tobacco e-Cigarette/Vaping Use: Never Used Second Hand Smoke Exposure: No service: No Current occupational status: unemployed Current occupation: Left Handed Current occupational exposures/hazards: No Cognitive needs: No Hearing needs: No Vision needs: Yes Review of Systems Const All systems reviewed & are unremarkable except as noted in HPI and below Physical Exam Vital Signs: Last Vital Signs Temp 98.3 F 05/06/24 14:01 Pulse 65 05/06/24 14:01 BP 118/74 05/06/24 14:01 Pulse Ox 97 05/06/24 14:01 Oxygen Delivery Method Room Air 05/06/24 14:01 BMI result Body Mass Index 40.8 General: awake, alert, oriented. Answers questions appropriately. Fully engaged in examination. Skin: warm, dry, intact HEENT: TMs intact bilaterally, no redness. Posterior pharynx without erythema or exudate. Sclera without icterus or injection. Tenderness to percussion over frontal and ethmoid sinuses Cardiac: External chest normal in appearance. Respiratory: +cough. LSCTAB. Abdomen: without gross distension. Neurological: Oriented to person, place, time and situation. Thought process intact. Psychiatric: Appropriate mood and affect. Good judgment and insight. Assessment & Plan Assessment & Plan (1) Sinusitis: Code(s): J32.9 - Chronic sinusitis, unspecified Plan Doxycycline 100 mg p.o. twice daily x5 days Benzonatate 100mg po bid as needed Rest, drink plenty of fluids, tylenol or motrin as needed. Follow up with pcp or in clinic for any new or worsening symptoms. Go to ER for shortness of breath, chest pain, palpitations, weakness, dizziness. Orders: Orders SARS-CoV2/FLU/RSV Today J06.9 - Acute upper respiratory infection, unspecified Medications: New doxycycline hyclate 100 mg PO BID 5 days 10 caps 0RF benzonatate 100 mg PO BID PRN 20 caps 0RF cough Coding Level of Care Code Est Pt Level 3 (83730) Diagnoses Sinusitis J32.9
[2024-05-06 14:01] VITALS: BP 118/74; PULSE 65; TEMP 36.8; O2SAT 97; BMI 40.8
== END 2024-05-06 14:45 | disposition home or self-care (01) ==
PROVIDERS: PCP Internal Medicine; Visit Provider Registered Nurse Emergency
DX: J32.9 Chronic sinusitis, unspecified (principal)
CPT/HCPCS: 99213

== ENCOUNTER 2024-05-06 14:18 | Outpatient (REF) | payer OTHER, MEDICAID, SELFPAY ==
[2024-05-06 17:34] LABS: Influenza A PCR NEGATIVE (Negative); Influenza B PCR NEGATIVE (Negative); Resp Syncy Virus RNA Qual PCR NEGATIVE (Negative); SARS COV2 PCR INHOUSE NEGATIVE (Negative)
== END 2024-05-06 14:19 | disposition home or self-care (01) ==
LOC: HO.LAB 14:18
PROVIDERS: Visit Provider Registered Nurse Emergency
DX: J06.9 Acute upper respiratory infection, unspecified (principal)
CPT/HCPCS: 0241U

== ENCOUNTER 2025-01-02 06:03 | Outpatient (REF) | payer MEDICARE, SELFPAY ==
--- OUTSIDE RECORDS SUMMARY | 2025-01-02 06:05 | XMS_ITS | Data Portability ---
Author Organization [place] - [facility] in [facility],, CONCEPCION CARRERA MD Address [address] [facility] [address] [place] [address] Care Team Providers Care Drain Tiler Name Role Phone ARANZA CRESPO Primary Care Provider Assessment No assessment recorded. Plan of Treatment Reminders Order Date Submit Date Provider Last Modified By Organization Details Last Modified Time Details Appointments None recorded. Lab pap test, thinprep, cervical 2016 017 [facility], Cytopathology Service, [address] [place], [address], 7 12:28:01 wet mount, vaginal 2016 017 [email or web address] 1 In-Office Order, Internal Use Only DO Not Attach Compendium DO Not Attach Compendium, Do Not Delete/merge, [id number] 7 16:22:09 fecal occult blood, stool 2016 017 [email or web address] 1 In-Office Order, Internal Use Only DO Not Attach Compendium DO Not Attach Compendium, Do Not Delete/merge, [id number] 7 16:21:41 urinalysi s, dipstick 2015 016 [id number] In-Office Order, Internal Use Only DO Not Attach Compendium DO Not Attach Compendium, Do Not Delete/merge, [id number] 6 04:20:31 wet mount, vaginal 2015 016 [id number] In-Office Order, Internal Use Only DO Not Attach Compendium DO Not Attach Compendium, Do Not Delete/merge, [id number] 6 04:20:31 pap, LB, vaginal 2015 016 [facility], Cytopathology Service, [address] [place], [address], 6 11:46:12 fecal occult blood, stool 2015 016 [email or web address] 1 In-Office Order, Internal Use Only DO Not Attach Compendium DO Not Attach Compendium, Do Not Delete/merge, [id number] 6 15:46:50 wet mount, vaginal 2014 015 GABO In-Office Order, Internal Use Only DO Not Attach Compendium DO Not Attach Compendium, Do Not Delete/merge, [id number] 5 15:09:09 Referral None recorded. Procedures None recorded. Surgeries None recorded. Imaging MAMMO, screening , digital, bilateral 2016 017 [facility], [address] [facility], [place], [address], 8 08:24:00 MAMMO, screening , digital, bilateral 2015 016 [facility] ([facility]), [address] [place], [address], 7 09:06:47 Medication Orders Estrace 0.01% (0.1 mg/gram) vaginal cream 2016 017 [email or web address] 1 [id number], [address] [place], [address], 7 16:21:41 fluconazo le 150 mg tablet 2016 017 INTERFACE [id number], [address] [place], [address], 7 16:21:56 fluconazo le 150 mg tablet 2015 016 [email or web address] [id number], [address] [place], [address], 7 15:37:10 Estrace 0.01% (0.1 mg/gram) vaginal cream 2014 015 [email or web address] 1 [id number], [address] [place], [address], 5 15:07:27 fluconazo le 150 mg tablet 2014 015 [email or web address] [id number], [address] [place], [address], 7 15:37:10 Estrace 0.01% (0.1 mg/gram) vaginal cream 2014 015 [email or web address] 1 [id number], [address] [place], [address], 5 15:07:31 Patient TargetsNo targets recorded. Patient Instructions Encounter Date Encounter Id Patient Instructions Last Modified By Organization Details Last Modified Time 04/24/2015 [id number] atrophic vaginit is: care instructions [email or web address] Not available 04/24/2015 15:40:54 She is here as a new patient for a complaint of dyspareunia and vaginal dryness.? ? ? She had a LAVHRSO [id number] for fibroids.? ? ? She had surgery at age 23 for cysts on the ovary 25 pounds of cysts and LSO was done. She was taking ERT for 6 months after surgery, but then was advised to stop. She has not had any hormones since 2004, 11 years.? ? ? 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 Flores in 08/2014. The issues of menopause were discussed at length. The diagnosis of menopause is the absense of menses for a calendar year. It is rarely possible to still have a menses after a year, but if she has any vaginal bleeding she should consider it abnormal, postmenopausal bleeding and contact us for evaluation. We discussed the possible symptoms of hot flashes, night sweats, insomnia, iritability, short term memory issues, and the possibility of developing anxiety or panic attacks. We reviewed why this occurs, on a physiologic basis, as her estrogen levels diminish. There are reasonable ways to diminish the symptoms, including avoidance of caffeine and alcohol, cooler temperature rooms, and wearing open and loose weave absorbant clothing, or nothing at all, at night. We touched on the social and life issues that can arise at this time due to the hormonal instability. 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 We discussed having her begin to take vaginal hormone replacement therapy. We discussed the need to take a progestin if a uterus is present, and the rationale behind that. We discussed the stated risks of one in 10,000 of development o fa blood clot/DVT/PE tht could be life threatening. We discussed the Women's Health Initive study and the findings. We discused the PEPPI study as well. She is aware that there are conflicting reports in the medical literature concerning the risks and benefits of HRT. We disussed that women are advised by ACOG to take HRT in the lowest dose necessary, and for the shortest time necessary, to control their symptoms. After a long discussion of the potential risks and benefits of HRT she elects to begin HRT. All questions answered. Rx for HRT is called in to the pharmacy. Return in 3 months of using it daily to see how she is doing and discuss chcf usage of the E2 cram. RX and 2 free samples given, Estrace cream. Face to face discussion 45 minutes Not available 04/24/2015 15:07:31 07/17/2015 [id number] vaginal yeast infection: care instructions [email or web address] Not available 07/17/2015 15:12:14 She is here for discussion of her atrophic vaginitis.? ? ? She notes a good improvement in her dryness symptoms since using the E2 vaginal cream, she elects to continue.? ? ? She has noted some irritation in the past week and wonders if it is a yeast infection. She does indeed have a yeast infection, rx diflucan given.? ? ? She also requests a refill on the E2 cream. Not available 07/17/2015 15:07:27 10/12/2015 [id number] She is here for annual exam, is doing well, has some sinus issues. She notes a good improvement with the E2 vaginal cream. She appears to be doing well. She is advised to get 1500 mg of calcium daily into her diet and supplements combined. There is a health benefit with adequate vitamin D supplementation to at least 400 units daily, daily aerobic exercise of 30 minutes, and stress reduction. Monthly self breast exam was taught, and stressed, and is advised to call if she discovers any new mass in the breast. ? ? ? Seat belt use for herself and passengers are advised. There are significant health benefits of becoming and remainig fit, with an optimal BMI. There is a potential reduction in chronic discomfort, diminished risks of hypertension, diabetes, and heart disease with the proper weight management. With a recommended BMI there can be improved mobility as she ages. Strategies to reach and maintain her target weight were discussed in detail. Not available 10/12/2015 15:46:50 04/15/2016 [id number] vaginal yeast infection: care instructions [id number] Not available 08/13/2016 04:20:31 She went to [facility] and has been on an antibiotic for 4 days, and complains of vaginal burning to the point it hurts to sit. she has a monilia vaginitis. The antibiotics are finished today. Urine dip is negative. RX Diflucan, call if symptoms persist or worsen, possible side effects discussed. Not available 04/15/2016 14:10:00 11/18/2016 [id number] atrophic vaginit is: care instructions Not available 11/18/2016 16:21:41 vaginal yeast infection: care instructions [email or web address] Not available 11/21/2016 07:17:42 She is here for annual exam, is doing well. She notes a good improvement with the E2 vaginal cream. She is using mucinex and antibiotics for a sinus infection now. She has pruritus and is taking antibiotics, has monila, rx Diflucan. The significant health benefits of becoming and remaining fit, with an optimal BMI, were discussed. We discussed the potential reduction in chronic discomfort, the diminished risks of hypertension, diabetes, and heart disease with the proper weight management, and improved mobility as she ages. Strategies to reach and maintain her target weight were discussed in detail. We discussed the avoidance of empty calories, the benefit of increasing her protein intake in the morning and diminishing her carbohydrate intake in the evening. A formalized dietary program was discussed, such as Weight Watchers. We discussed the use of the BMI calculator in following her progress. We discussed the possibility of having her begin a standardized exercise regimen, such as that at [employer], and she is given literature for this. We discussed a referral to a certified coatings inspector and/or weight management analyst. All questions were answered. She mohinder think about all this and get back to me. She appears to be doing well. She is advised to get 1500 mg of calcium daily into her diet and supplements combined. We discussed the benefits of adequate vitamin D supplementation to at least 400 units daily, daily aerobic exercise of 30 minutes, and stress reduction. Monthly self breast exam was taught, and stressed, and is advised to call if she discovers any new mass in the breast. Seat belt use for herself and passengers advised. We discussed having her continue to take hormone replacement therapy. We discussed the need to take a progestin if a uterus is present, and the rationale behind that. We discussed the stated risks of one in 10,000 of development of a blood clot/DVT/PE that could be life threatening. We discussed the Women's Health Initiative study and the findings. We discused the PEPPI study as well. She is aware that there are conflicting reports in the medical literature concerning the risks and benefits of HRT. We disussed that women are advised by ACOG to take HRT in the lowest dose necessary, and for the shortest time necessary, to control their symptoms. After a long discussion of the potential risks and benefits of HRT she elects to continue HRT. All questions were answered. Rx for HRT is called in to the pharmacy. Call if any vaginal bleeding occurs upon initiation of HRT, or at any time postmenopausally. Not available 11/18/2016 16:22:26 Reason for Referral None Reported. Results Created Date Observation Date Name Description Value Unit Range Abnormal Flag Note LastModifiedBy Organization Detail LastModifiedTime 11/19/19 17 11/18/2016 ronnie ulloa Clue Cells negati ve Not Available In-Office Order Internal Use Only DO Not Attach Compendium DO Not Attach Compendium, Do Not Delete/merge, [id number] 11/18/2016 16:21:40 11/19/19 17 11/18/2016 ronnie ulloa Trichomonas negati ve Not Available In-Office Order Internal Use Only DO Not Attach Compendium DO Not Attach Compendium, Do Not Delete/merge, [id number] 11/18/2016 16:21:40 11/19/19 17 11/18/2016 wet mount , vagin al Hyphae positi ve Not Available In-Office Order Internal Use Only DO Not Attach Compendium DO Not Attach Compendium, Do Not Delete/merge, [id number] 11/18/2016 16:21:40 11/19/19 17 11/18/2016 wet mount , vagin al atrophic epithelium positi ve Not Available In-Office Order Internal Use Only DO Not Attach Compendium DO Not Attach Compendium, Do Not Delete/merge, [id number] 11/18/2016 16:21:40 11/19/19 17 11/18/2016 fecal occul t blood , stool Occult Blood negati ve Not Available In-Office Order Internal Use Only DO Not Attach Compendium DO Not Attach Compendium, Do Not Delete/merge, 11/18/2016 15:45:14 04/15/20 16 04/15/2016 wet mount , vagin al Clue Cells negati ve Not Available In-Office Order Internal Use Only DO Not Attach Compendium DO Not Attach Compendium, Do Not Delete/merge, 04/15/2016 13:46:05 04/15/20 16 04/15/2016 wet mount , fredyin al Trichomonas negati ve Not Available In-Office Order Internal Use Only DO Not Attach Compendium DO Not Attach Compendium, Do Not Delete/merge, 04/15/2016 13:46:05 04/15/20 16 04/15/2016 wet mount , vagin al Hyphae positi ve Not Available In-Office Order Internal Use Only DO Not Attach Compendium DO Not Attach Compendium, Do Not Delete/merge, 04/15/2016 13:46:05 04/15/20 16 04/15/2016 wet mount , vagin al atrophic epithelium positi ve Not Available In-Office Order Internal Use Only DO Not Attach Compendium DO Not Attach Compendium, Do Not Delete/merge, 04/15/2016 13:46:05 04/15/20 16 04/15/2016 urina lysis , dipst ick GLU Negati ve Not Available In-Office Order Internal Use Only DO Not Attach Compendium DO Not Attach Compendium, Do Not Delete/merge, 04/15/2016 13:32:33 04/15/20 16 04/15/2016 urina lysis , dipst ick RAJEEV Negati ve Not Available In-Office Order Internal Use Only DO Not Attach Compendium DO Not Attach Compendium, Do Not Delete/merge, 04/15/2016 13:32:33 04/15/20 16 04/15/2016 urina lysis , dipst ick KET Large (160) Not Available In-Office Order Internal Use Only DO Not Attach Compendium DO Not Attach Compendium, Do Not Delete/merge, 04/15/2016 13:32:33 04/15/20 16 04/15/2016 urina lysis , dipst ick SG 1.020 Not Available In-Office Order Internal Use Only DO Not Attach Compendium DO Not Attach Compendium, Do Not Delete/merge, 04/15/2016 13:32:33 04/15/20 16 04/15/2016 urina lysis , dipst ick BLO Hemoly zed : Trace Not Available In-Office Order Internal Use Only DO Not Attach Compendium DO Not Attach Compendium, Do Not Delete/merge, 04/15/2016 13:32:33 04/15/20 16 04/15/2016 urina lysis , dipst ick pH 7.0 Not Available In-Office Order Internal Use Only DO Not Attach Compendium DO Not Attach Compendium, Do Not Delete/merge, 04/15/2016 13:32:33 04/15/20 16 04/15/2016 urina lysis , dipst ick PRO Negati ve Not Available In-Office Order Internal Use Only DO Not Attach Compendium DO Not Attach Compendium, Do Not Delete/merge, 04/15/2016 13:32:33 04/15/20 16 04/15/2016 urina lysis , dipst ick URO 0.2 E.U. / dl Not Available In-Office Order Internal Use Only DO Not Attach Compendium DO Not Attach Compendium, Do Not Delete/merge, 04/15/2016 13:32:33 04/15/20 16 04/15/2016 urina lysis , dipst ick NIT negati ve Not Available In-Office Order Internal Use Only DO Not Attach Compendium DO Not Attach Compendium, Do Not Delete/merge, [id number] 04/15/2016 13:32:33 04/15/20 16 04/15/2016 urina lysis , dipst ick AGUEDA Negati ve Not Available In-Office Order Internal Use Only DO Not Attach Compendium DO Not Attach Compendium, Do Not Delete/merge, [id number] 04/15/2016 13:32:33 10/12/19 16 10/12/2015 fecal occul t blood , stool Occult Blood negati ve Not Available In-Office Order Internal Use Only DO Not Attach Compendium DO Not Attach Compendium, Do Not Delete/merge, [id number] 10/12/2015 15:35:52 07/17/20 15 07/17/2015 wet mount , vagin al Clue Cells negati ve Not Available In-Office Order Internal Use Only DO Not Attach Compendium DO Not Attach Compendium, Do Not Delete/merge, [id number] 07/17/2015 14:46:36 07/17/20 15 07/17/2015 wet mount , vagin al Trichomonas negati ve Not Available In-Office Order Internal Use Only DO Not Attach Compendium DO Not Attach Compendium, Do Not Delete/merge, [id number] 07/17/2015 14:46:36 07/17/20 15 07/17/2015 wet mount , vagin al Hyphae positi ve Not Available In-Office Order Internal Use Only DO Not Attach Compendium DO Not Attach Compendium, Do Not Delete/merge, [id number] 07/17/2015 14:46:36 07/17/20 15 07/17/2015 wet mount , vagin al atrophic epithelium positi ve Not Available In-Office Order Internal Use Only DO Not Attach Compendium DO Not Attach Compendium, Do Not Delete/merge, [id number] 07/17/2015 14:46:36 10/12/19 16 10/12/2015 pap, LB [id number] ThinP rep Pap, Image d: NEGAT YOVANI FOR SQUAM OUS INTRA EPITH ELIAL LESIO N AND MALIG JUDD . Ileana Martinez ams, CT( CP) (Case elect seble morrow coretta d 10 14 2015) ADEQU ACY: Satis facto ry. SOURC E: ThinP rep Pap HPV IF ASCUS , Vagin al, Image d CLINI LENNY INFOR MATIO N: HPV If Diagn osis of ASCUS . hyste recto my * Cytop athol ogy servi jennifer provi ded by [facility] Michelle Louie at the above addre ss. Not Available [facility], Cytopathology Service [address] [place], [address], 10/14/2015 11:46:12 11/19/19 17 11/18/2016 pap, LB [id number] ThinP rep Pap, Image d: NEGAT YOVANI FOR SQUAM OUS INTRA EPITH ELIAL DAE N AND RACHAEL WHALEY . Kate Partida a, CT( CP) (Case elect seble morrow coretta d 11 21 2016) ADEQU ACY: Satis facto ry. Endoc ervic al/tr ansfo rmati on zone compo nent absen t. SOURC E: ThinP rep Pap HPV IF Ascus : Refle x 16 and 18, Cervi lenny, Image d: CLINI LENNY INFOR MATIO N: HPV If Diagn osis of ASCUS . LAST PAP MENOP AUSE Not Available [facility], Cytopathology Service [address] [place], [address], 11/21/2016 12:28:01 Result Notes None recorded. Problems Name Problem SNOMED Code Status Onset Date Resolution Date Notes Provider Name and Address Organization Details Recorded Time Dyspareunia 59284673 Active Concepcion Carrera MD [address], [place], [address], [place] - [facility], 6 15:45:26 Complicated ovarian cyst Active 2002, 25 pounds of contents , benign Concepcion Carrera MD [address], [place], [address], [place] - [facility] in [facility], 6 15:45:26 Atrophic vaginitis [id number] Active Concepcino Carrera MD [address], [place], [address], [place] [facility], 6 15:45:26 Diverticulit is 287560039 Active had surgery 08/2014 Concepcion Carrera MD [address], [place], [address], [place] - [facility], 6 15:45:26 Candidal vulvovaginit is 52929458 Active Concepcion Carrera MD [address], [place], [address], [place] [facility], 6 15:45:26 Problem Notes None recorded. Procedures Surgical History Date Name Laterality Status Provider Name and Address Organization Details Recorded Time 03/28/20 16 Other completed Elvia Meczywor [place] - [facility], 11/18/2016 15:43:23 08/28/19 15 Cholecystectomy completed Elvia Mecelijahwor [place] - [facility], 04/24/2015 14:09:23 08/28/19 15 Other completed Concepcion Carrera MD [address], [place], [address], [place] - [facility], 07/17/2015 14:43:51 08/28/19 12 Other completed Elvia Meczywor [place] - [facility], 04/24/2015 14:09:23 08/28/19 11 Other completed Elvia Meczywor [place] - [facility] in [facility], 04/24/2015 14:09:23 08/28/19 08 Other completed Elvia Meczywor [place] - [facility], 10/12/2015 15:34:20 08/28/19 03 Total Abdominal Hysterectomy completed Concepcion Carrera MD [address], [place], [address], [place] - [facility], 04/24/2015 14:41:55 08/28/18 88 Removal of ovary/tube(s) completed Concepcion Carrera MD [address] [facility] [address] [facility] [address], [place] - [facility], 04/24/2015 14:41:55 Imaging Results None recorded. Procedure Notes None recorded. Medical Equipment None Reported. Allergies Allergen ID Allergen Name Allergen Category Reaction Reaction Severity Criticality Documentation Date Start Date Code Code System Note Provider Name and Address Organization Details Recorded Time 85327 Product containin g penicilli n (product) medicatio n rash Not available Not available 04/24/2015 28209 8001 SNOMED Elvia JULISA Cross in [facility], 5 14:09:24 Requip medicatio n rash Not available Not available 04/24/2015 94063 1 RxNorm Elvia Jenelle kellogg [place] - Ceferino in [facility], 5 14:09:24 Medications Name Sig Start Date Stop Date Status Note LastModified by Organization Details LastModified Time estrace 0.1 mg/gm crea active Not Available Not Available N ot Available fluconazole 150 mg tabs active Not Available Not Available Not Available terconazole 0.4 % crea active Not Available Not Available N ot Available naproxen 500 mg tabs active Not Available Not Available Not Available oxybutynin chloride er 5 mg tb24 active Not Available Not Available No t Available vesicare 5 mg tabs active Not Available Not Available Not Available nitrofurant oin monohydrate 100 mg caps active Not Available Not Available Not Available phenazopyri dine hcl 200 mg tabs active Not Available Not Available Not Available oxycodone/a cetaminophe n 5-325 mg tabs active Not Available Not Available Not Available sulfamethox azole/trime thoprim ds 800-160 mg tabs active Not Available Not Available Not Available azithromyci n 250 mg tabs active Not Available Not Available Not Available tizanidine hcl 4 mg tabs active Not Available Not Available Not Available flovent hfa 220 mcg/act aero active Not Available Not Available Not Available fluticasone propionate 50 mcg/act susp active Not Available Not Available Not Available proair hfa 108 (90 base) mcg/act aers 04/15 completed Not Available Not Available Not Available tobramycin sulfate 0.3 % soln 04/15 completed Not Available Not Available Not Available vesicare 10 mg tabs active Not Available Not Available Not Available terconazole 0.4 % vaginal cream Insert 1 applicato rful every day by vaginal route for 7 days. 2014 active Not Available Not Available Not Avai lable azithromyci n 250 mg tablet TAKE 2 TABLETS BY MOUTH TODAY, THEN TAKE 1 TABLET DAILY FOR 4 DAYS 11/18 completed Not Available Not Available Not Available tizanidine 4 mg tablet TAKE 1 TABLET BY MOUTH EVERY 6 HOURS NEEDED FOR MUSCLE SPASMS active Not Available Not Available No t Available fluconazole 150 mg tablet TAKE 1 TABLET EVERY DAY AT BEDTIME FOR 1 DAY. active Not Available Not Available No t Available albuterol sulfate 1.25 mg/3 mL solution for nebulizatio n Inhale 6 mL 3 times a day by inhalatio n route. 04/15 completed Not Available Not Available Not Available fluconazole 200 mg tablet 04/15 completed Not Available Not Available Not Available phenazopyri dine 200 mg tablet TAKE 1 TABLET BY MOUTH 3 TIMES A DAY FOR PAIN (AFTER MEALS) active Not Available Not Available No t Available prednisone 20 mg tablet active Not Available Not Available Not Available Doc-Q-Lace 100 mg capsule 04/15 completed Not Available Not Available Not Available sulfamethox azole 800 mg-trimetho prim 160 mg tablet TAKE 1 TABLET BY MOUTH TWICE A DAY 11/18 completed Not Available Not Available Not Available lidocaine-p rilocaine 2.5 %-2.5 % topical cream 11/18 completed Not Available Not Available Not Available oxycodone-a cetaminophe n 5 mg-325 mg tablet active Not Available Not Available No t Available fluconazole 50 mg tablet TAKE 3 TABLETS BY MOUTH ONCE AT BEDTIME FOR 1 DAY. 11/18 completed Not Available Not Available Not Available tobramycin 0.3 % eye drops INSTILL 2 DROPS 5 TIMES A DAY FOR 3 DAYS active Not Available Not Available No t Available oxybutynin chloride ER 5 mg tablet,exte nded release 24 hr TAKE 1 TABLET BY MOUTH EVERY DAY active Not Available Not Available No t Available lorazepam 1 mg tablet 11/18 completed Not Available Not Available Not Available ibuprofen 600 mg tablet active Not Available Not Available Not Available fluticasone propionate 50 mcg/actuati on nasal spray,suspe nsion USE 2 SPRAYS ONCE A DAY FOR 7 DAYS INTO BOTH NOSTRILS 04/15 completed Not Available Not Available Not Available naproxen 500 mg tablet TAKE 1 TABLET BY MOUTH 2 TIMES DAILY (WITH MEALS). active Not Available Not Available No t Available tobramycin 0.3 %-dexametha sone 0.1 % eye drops,suspe nsion INSTILL 1 DROP IN THE LEFT EYE 3 TIMES DAILY active Not Available Not Available No t Available oxycodone 5 mg tablet 11/18 completed Not Available Not Available Not Available Estrace 0.01% (0.1 mg/gram) vaginal cream INSERT 1 GRAM VAGINALLY DAILY AT BEDTIME active Not Available Not Available No t Available nitrofurant oin monohydrate /macrocryst als 100 mg capsule TAKE ONE CAPSULE BY MOUTH TWICE A DAY FOR 7 DAYS active Not Available Not Available No t Available Vesicare 5 mg tablet TAKE 1 TABLET BY MOUTH EVERY DAY active Not Available Not Available No t Available Vesicare 10 mg tablet TAKE 1 TABLET BY MOUTH EVERY DAY active Not Available Not Available No t Available Flovent HFA 110 mcg/actuati on aerosol inhaler active Not Available Not Available Not Available Flovent HFA 220 mcg/actuati on aerosol inhaler INHALE 2 PUFFS TWICE A DAY active Not Available Not Available No t Available Vitamin D3 active Not Available Not Av ailable Not Available Flovent active Not Available Not Avail able Not Available ProAir HFA 90 mcg/actuati on aerosol inhaler INHALE 2 PUFFS NEEDED EVERY 4 HOURS NEEDED active Not Available Not Available No t Available Probiotic active Not Available Not Faina ilable Not Available formaldehyd e 10 % topical solution with applicator APPLY 1 DROP APPLY ON THE SKIN DAILY 11/18 completed Not Available Not Available Not Available One Daily Gummy Vites active Not Available Not Available Not Available Azo Bladder Control active Not Available Not Available Not Available Vitals Date Recorded Body height Body mass index (BMI) Heart rate Body weight Systolic blood pressure Diastolic blood pressure Provider Name and Address Organization Details Last Updated DateTime 5 165.1 cm 38.5 kg/m2 64 /min 700205. 309850 g 111 mm[Hg] 59 mm[Hg] Elvia Almanzar MA - [facility], 5 14:09:24 Date Recorded Body height Body mass index (BMI) Body weight Provider Name and Address Organization Details Last Updated DateTime 07/17/2015 165.1 cm 38.4 kg/m2 317059.4932 22 g Andree De La Vega in [facility], 07/17/2015 14:37:37 Date Recorded Heart rate Systolic blood pressure Diastolic blood pressure Provider Name and Address Organization Details Last Updated DateTime 07/17/2015 62 /min 122 mm[Hg] 65 mm[Hg] Elvia De La Vega in [facility], 07/17/2015 14:48:54 Date Recorded Body height Body weight Body mass index (BMI) Heart rate Systolic blood pressure Diastolic blood pressure Provider Name and Address Organization Details Last Updated DateTime 6 165.1 cm 785041. 810507 g 37.6 kg/m2 64 /min 116 mm[Hg] 72 mm[Hg] Elvia De La Vega in [facility], 6 15:34:21 Date Recorded Body height Heart rate Body weight Body mass index (BMI) Body temperature Systolic blood pressure Diastolic blood pressure Provider Name and Address Organization Details Last Updated DateTime 6 165.1 cm 59 /min 93422.7 3 g 36.4 kg/m2 98.2 [degF] 115 mm[Hg] 61 mm[Hg] Andree De La Vega in [facility], 6 13:31:14 Date Recorded Body height Body weight Body mass index (BMI) Heart rate Systolic blood pressure Diastolic blood pressure Provider Name and Address Organization Details Last Updated DateTime 7 165.1 cm 209848. 94 g 37 kg/m2 71 /min 126 mm[Hg] 74 mm[Hg] Elvia De La Vega in [facility], 7 15:41:37 Social History Question Answer Notes LastModified by Organizat ion Details LastModified Time Tobacco Smoking Status Never Smoker Not Available [facility] 06/30/2020 03:19:40 What Is Your Level Of Alcohol Consumption? Occasional [id number] Information not available 06/30/2020 What Is Your Level Of Caffeine Consumption? Occasional [id number] Information not available 06/30/2020 What Type Of Diet Are You Following? REGULAR [id number] Information not available 06/30/2020 Which Illicit Or Recreational Drugs Have You Used? No [id number] Information not available 06/30/2020 Do You Reside In Or Have You Traveled To An Area Where Ebola Virus Transmission Is Active? 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 0 Information not available 04/15/2016 High Number Of Sexual Partners No Information not available 04/15/2016 To Which Gender Do You Self-identify? Female Information not available 04/15/2016 Marital Status Informatio n not available 04/24/2015 Are You Sexually Active? Yes [id number] Information not available 06/30/2020 How Much Tobacco Do You Smoke? No [id number] Information not available 06/30/2020 General Stress Level Medium Information not available 10/12/2015 Have You Recently (within The Last 12 Weeks, Or During A Current ) Traveled To Or Lived In A Zika-affected Area? No Information not available 04/15/2016 Sex: Unknown Functional Status Question Answer Note LastModified by Organizat ion Details LastModified Time What is your exercise level? Occasional [id number] Information not available 06/30/2020 Mental Status None recorded. Family History Relationship Description Onset Age of this Age Resolved Age Notes LastModified by Organization Details LastModified Time Father Malignant tumor of colon stomac h Not available 10/12/2015 15:41:38 Father Problem lymphe abdelrahman, testic ular Not available 10/12/2015 15:41:38 Mother Problem osteoa rthrit is Not available 10/12/2015 15:41:38 Sister Osteoporosis osteoa rthrit is Not available 10/12/2015 15:41:38 Medical History Condition Response Anesthesia complications N High Blood Pressure N Candidate for MyRisk panel N Autoimmune Condition N Kidney or Bladder Problems Y Thyroid Problems N GI Problems Y Lung Disease N Depression Y Defects or Inherited Disease N History of Ovarian Cancer N Anemia N History of Breast Cancer N BRCA testing in past N Osteopenia N Psychiatric Illness N Anxiety Disorder Y Diabetes N Arthritis Y Headaches or Migraines Y Infertility N Asthma Y History of Cancer N Endometriosis Y Hepatitis N Heart Disease N Hypertension N Osteoporosis N Gynecological History Statement/Question Response If Post Menopausal, Age at Menopause 23 Age at Menarche 8 Most Recent Bone Density Obstetrics History GPAL:G 0 P 0 0 0 0 Type Value Living 0 Total 0 Past Encounters Encounter ID Performer Location Encounter Start Date Encounter Closed Date Diagnosis/Indication Diagnosis SNOMED-CT Code Diagnosis ICD10 Code Diagnosis Note [id number] MD CONCEPCION Ortiz MD [address] [place] [address], [address] [phone] 04/24/2015 13:33:01 04/24/2015 15:51:14 Dyspareunia [id number] Atrophic vaginitis [id number] MD CONCEPCION Ortiz MD [address] [place] [address], [address] [place] [phone] 07/17/2015 14:32:27 07/17/2015 15:35:48 Candidal vulvovaginitis 78694112 B37.3 Atrophic vaginitis 79746 000 N95.2 [id number] MD CONCEPCION Ortiz MD [address] [place] [phone] 5 10/12/2015 15:24:49 10/12/2015 16:05:10 Specialized medical examination 73824432 Z01.419 Screening for malignant neoplasm of rectum 410021316 Z12.12 Screening mammography 24 473354 Z12.31 [id number] MD CONCEPCION Ortiz MD [address] [place] [address], [address] [place] [phone] 5 04/15/2016 13:20:40 04/15/2016 14:43:12 Acute lower urinary tract infection 961377487 R30.0 Candidal vulvovaginitis 93513801 B37.3 [id number] MD CONCEPCION Ortiz MD [address] [place] [address] [place] [phone] 5 11/18/2016 15:35:57 11/21/2016 08:41:06 Specialized medical examination 85646577 Z01.419 Screening for malignant neoplasm of rectum 301933750 Z12.12 Screening mammography 24 991678 Z12.31 Atrophic vaginitis 75288 000 N95.2 Candidal vulvovaginitis 63760735 B37.3 Health Concerns Section Related Observation LastModified by Organization Detai ls LastModified Time None Recorded Concern Status LastModified by Organization Details LastModified Time None Recorded Advance Directives Directive None Recorded Payers Encounter Date Sequence Insurance Name Policy Number Policy Cha Covered Member ID Cha Member ID Guarantor Name 04/24/2015 1 [facility] [id number] Augusta Daudelin [id number] Augusta Daudelin 07/17/2015 1 [facility] [id number] Augusta Daudelin [id number] Augusta Daudelin 10/12/2015 1 [facility] [id number] Augusta Daudelin [id number] Augusta Daudelin 04/15/2016 1 [facility] [id number] Augusta Daudelin [id number] Augusta Daudelin 11/18/2016 1 [facility] [id number] Augusta Daudelin [id number] Augusta Daudelin Notes Date Note Type Note Provider Name and Address Organization Details Recorded Time 04/15/2016 text/html She went to [facility] and has been on an antibiotic for 4 days, and complains of vaginal burning to the point it hurts to sit. Concepcion Carrera MD [address], [place], [address], [place] - [facility], 04/15/2016 14:10:23 11/18/2016 text/html She is here for annual exam, is doing well. She notes a good improvement with the E2 vaginal cream. She is using mucinex and antibiotics for a sinus infection now. Concepcion Carrera MD [address], [place], [address], [place] - [facility], 11/18/2016 16:23:34 OBGyn Episode No OBEpisode recorded.
--- OUTSIDE RECORDS SUMMARY | 2025-01-02 06:06 | XMS_ITS | Data Portability ---
Author Organization [place] 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 she reports intermittent nausea. no fever, vomiting or diarrhea. no constipation. she denies cp, sob, weakness, dizziness, lethargy. she has hx of UTIs. states she has not tried anything otc for her symptoms. pt also reports hx of chronic hernia and multiple surgeries/ complications with the hernia. she is unsure if any of these symptoms could be related to that. Vital Signs: BP 130/80, HR 82, RR 18, T 97.7, O2 98% RA Exam: pleasant 57 y/o female, obese, alert NAD sitting in living room chair. lungs: CTAB no wheezes rales or rhonchi. heart: RRR no murmur rubs or gallops. no peripheral edema. abdomen: obese, non distended, normal bowel sounds, soft, non tender. + suprapubic tenderness on exam, no CVA tenderness. skin: warm and dry no rashes or lesions. DDx considered, with rationale: Pyelonephritis: considered but she is afebrile and no CVA tenderness on exam. Nephrolithiasis: considered but she denies flank pain, no gross hematuria. Sepsis: considered but she is afebrile, vitals are stable, she does not appear septic. Appendicitis: considered but she is afebrile, no RLL tenderness on exam. Bowel obstruction: considered but she is afebrile, no vomiting or constipation. Results/ work up: UA shows trace leuks and trace blood. no nitrates. Urine culture is pending. Proper Personal Protective Equipment (PPE), including gloves, eye protection and masks were donned and doffed appropriately and all equipment cleaned using approved technique with germicidal disposable wipes prior to and after care of this patient according to [facility]'s infection prevention protocols. [email or web address] Not available 03/06/2023 10:49:43 Plan of Treatment Reminders Order Date Submit Date Provider Last Modified By Organization Details Last Modified Time Details Appointments None recorded. Lab urinalysis , dipstick 2022 023 [email or web address] [facility], [address] [place] [address], [id number], 10:30:49 culture, urine 2022 023 GABO [facility] (Centralized Electronic Ordering - All Locations), Patient Can Go To The Location Of Their Choice, [id number] 06:51:16 Referral None recorded. Procedures None recorded. Surgeries None recorded. Imaging None recorded. Medication Orders None recorded. Patient TargetsNo targets recorded. Patient Instructions Encounter Date Encounter Id Patient Instructions Last Modified By Organization Details Last Modified Time 03/06/2023 [id number] BASIC INFORMATIO N Urinary tract infections(UTI) can involve any portion of the urinary tract. The most common presentation is a bladder infection/cystitis, which usually presents with urinary frequency, burning with urination, urgency, foul smelling cloudy urine and occasionally blood. Kidney infections are less frequent, but more serious, and present with fever, flank pain, malaise and sometimes shaking chills. UTI? s are common in women because of the female anatomy, and much less common in males. INSTRUCTIONS Drink plenty of fluid, water is best. Drinking fluids will help to flush the bacteria from your body. Urinate every 2-3 hours Wear cotton underwear and avoid Nylon, Spandex and Lycra which tend to trap moisture and thong underwear which may facilitate UTI? s . Avoid tub baths Avoid using Super Tampons Use only mild unscented soap to wash your genitals, such as Dove or Ivory, avoid heavily scented body washes. If you are sexually active urinate as soon as possible after intercourse. Yogurt and probiotics may help to establish a more healthy genital environment, and aid in prevention. MEDICATIONS 1.Antibiotics: Usually prescribed if you have a UTI, there are many different effective antibiotics available. It is important that you complete the course of antibiotics you are given. You should feel some improvement within 24-48 hours, if you do not it may be that the bacteria causing your infection is resistant to the prescribed medication. If a urine culture is obtained it will usually take at least 3-4 days to get the final result. 2. Anesthetic/Pain relievers: Phenazopyridine (Pyridium, Uribelle, AZO) is an anesthetic excreted in the urine. This medicine will turn your urine BRIGHT ORANGE! This is normal, and may stain your underwear can contacts. Take this medication as directed with food. 3. Tylenol and Ibuprofen can be helpful for the pain, fever and body aches that can be associated with a kidney infection. Please follow recommended dosing instructions on the bottle. FOLLOW UP 1. If your symptoms are not improving in 24-48 hours 2. If your symptoms are getting more severe 3. Any unusual vaginal discharge 4. Symptoms recur after you complete medication SEEK CARE IMMEDIATELY IF 1.You have shaking chills or temperature over 101.5 2. Severe flank pain 3. Persistent vomiting, unable to keep fluids or medicine down. 4. Worse despite medication. If you develop any new or worsening symptoms and need after hours care, please go to nearest ER and/or call 911. If you have additional concerns or develop a change in your condition between 8am-10pm, please [facility] at [phone] to help navigate your care. [email or web address] Not available 03/06/2023 10:31:44 Reason for Referral None Reported. Results Created Date Observation Date Name Description Value Unit Range Abnormal Flag Note LastModifiedBy Organization Detail LastModifiedTime 03/06/2003/07/2023 URINE CULTU RE specimen description CLEAN CATCH (URINE ) Not Available [facility] (Centralized Electronic Ordering - All Locations) Patient Can Go To The Location Of Their Choice, [id number] 03/08/2023 06:51:16 03/06/2003/07/2023 URINE CULTU RE special requests NONE Not Available [facility] (Centralized Electronic Ordering - All Locations) Patient Can Go To The Location Of Their Choice, [id number] 03/08/2023 06:51:16 03/06/2003/08/2023 URINE CULTU RE culture NO GROWTH Not Available [facility] (Centralized Electronic Ordering - All Locations) Patient Can Go To The Location Of Their Choice, [id number] 03/08/2023 06:51:16 03/06/20 23 03/08/2023 URINE CULTU RE report status FINAL 2022 Not Available [facility] (Centralized Electronic Ordering - All Locations) Patient Can Go To The Location Of Their Choice, [facility] 03/08/2023 06:51:16 03/06/2003/06/2023 urina lysis , dipst ick Appearance clear Not Available [facility] [address] [place], [address], 03/06/2023 10:12:18 03/06/2003/06/2023 urina lysis , dipst ick Color yellow Not Available [facility] [address] [place], [address], 03/06/2023 10:12:18 03/06/20 23 03/06/2023 urina lysis , dipst ick Glucose (ref: neg) Neg Not Available [facility] [address] [place], [address], 03/06/2023 10:12:18 03/06/2003/06/2023 urina lysis , dipst ick Bilirubin (ref: neg) Neg Not Available [facility] [address] [place], [address], 03/06/2023 10:12:18 03/06/20 23 03/06/2023 urina lysis , dipst ick Ketones (ref: neg) Neg Not Available [facility] [address] [place], [address], 03/06/2023 10:12:18 03/06/20 23 03/06/2023 urina lysis , dipst ick Specific [place] (ref: 1.005 - 1.030) 1.005 Not Available [facility] [address], [place], [address], 03/06/2023 10:12:18 03/06/20 23 03/06/2023 urina lysis , dipst ick Blood (ref: neg) ? ? ? Not Available [facility] [address] [place], [address], 03/06/2023 10:12:18 03/06/20 23 03/06/2023 urina lysis , dipst ick pH (ref: 5.0-7.0) 7.5 Not Available [facility] [address], [place], [address], 03/06/2023 10:12:18 03/06/20 23 03/06/2023 urina lysis , dipst ick Protein (ref: neg) Neg Not Available [facility] [address], [place], [address], 03/06/2023 10:12:18 03/06/20 23 03/06/2023 urina lysis , dipst ick Urobilinogen (ref: 0.2-1) 0.2 Not Available [facility] [address], [place], [address], 03/06/2023 10:12:18 03/06/20 23 03/06/2023 urina lysis , dipst ick Nitrites (ref: neg) negati ve Not Available [facility] [address], [place], [address], 03/06/2023 10:12:18 03/06/2003/06/2023 urina lysis , dipst ick Leukocytes (ref: neg) ? ? ? Not Available [facility] [address], [place], [address], 03/06/2023 10:12:18 03/06/20 23 03/06/2023 urina lysis , dipst ick [facility], [address] [place] [address], [id number] Not Available [facility] [address] [facility], [place], [address], 03/06/2023 10:12:18 Result Notes None recorded. Procedures Surgical History Date Name Laterality Status Provider Name and Address Organization Details Recorded Time Hernia Repair completed DEVIN Chavez [address] [place], [address], [place] [facility] 03/06/2023 10:08:09 Imaging Results None recorded. Procedure Notes None recorded. Medical Equipment None Reported. Allergies Allergen ID Allergen Name Allergen Category Reaction Reaction Severity Criticality Documentation Date Start Date Code Code System Note Provider Name and Address Organization Details Recorded Time 327378 Bactrim medicatio n Not available Not available Not available 03/06/2023 96796 9 RxNorm DEVIN Chavez [facility] [place], [address], [place] [facility] 3 10:04:54 168726 Product containin g penicilli n (product) medicatio n Not available Not available Not available 03/06/2023 26515 8001 SNOMED DEVIN Chavez [facility] [place], [address], [place] [facility] 3 10:05:01 [id number] Cipro medicatio n Not available Not available Not available 03/06/2023 32116 3 RxNorm DEVIN Chavez [facility] [place], [address], [place] [facility] 3 10:05:07 Medications Name Sig Start Date Stop Date Status Note LastModified by Organization Details LastModified Time clindamycin HCl 300 mg capsule TAKE 1 CAPSULE BY MOUTH THREE TIMES A DAY 03/06 completed Not Available Not Available Not Available trazodone 50 mg tablet 03/06 completed Not Available Not Available Not Available levothyroxi ne 75 mcg tablet TAKE 1 TABLET BY MOUTH EVERY DAY active Not Available Not Available No t Available levothyroxi ne 50 mcg tablet TAKE 1 TABLET BY MOUTH EVERY DAY 03/06 completed Not Available Not Available Not Available gabapentin 300 mg capsule TAKE 1 CAPSULE BY MOUTH EVERY DAY AT BEDTIME FOR 30 DAYS 03/06 completed Not Available Not Available Not Available gabapentin 100 mg capsule TAKE 1 CAPSULE BY MOUTH EVERY DAY AT BEDTIME FOR 90 DAYS 03/06 completed Not Available Not Available Not Available oxycodone 5 mg tablet TAKE 1 TABLET BY MOUTH EVERY 6 HOURS NEEDED FOR PAIN 03/06 completed Not Available Not Available Not Available azithromyci n 500 mg tablet TAKE 1 TABLET BY MOUTH EVERY DAY UNTIL FINISHED 03/06 completed Not Available Not Available Not Available duloxetine 20 mg capsule,del ayed release TAKE 1 CAPSULE BY MOUTH EVERY DAY DIRECTED 03/06 completed Not Available Not Available Not Available duloxetine 30 mg capsule,del ayed release 03/06 completed Not Available Not Available Not Available Symbicort 160 mcg-4.5 mcg/actuati on HFA aerosol inhaler INHALE 2 PUFFS BY MOUTH 2 TIMES A DAY active Not Available Not Available No t Available Vitals Date Recorded Heart rate Oxygen saturation Oxygen saturation in Arterial blood by Pulse oximetry Body temperature Respiratory rate Systolic blood pressure Diastolic blood pressure Provider Name and Address Organization Details Last Updated DateTime 3 82 /min 98 % 98 % 97.7 [degF] 18 /min 130 mm[Hg] 80 mm[Hg] Not Available [facility] 3 10:07:48 Social History Question Answer Notes LastModified by Organizat ion Details LastModified Time Tobacco Smoking Status Never Smoker DEVIN Chavez [address], [place], [address], [place] [facility] 03/06/2023 10:07:29 What Is Your Level Of Alcohol Consumption? Occasional [email or web address] Information not available 03/06/2023 Fall Risk: Do You Feel Unsteady When Standing Or Walking? No [email or web address] Information not available 03/06/2023 Excessive Alcohol Or Drug Use No [email or web address] Information not available 03/06/2023 Does This Patient Have A PCP? Yes [email or web address] Information not available 03/06/2023 Has The Patient Seen Their PCP In The Past 6 Months? Yes [email or web address] Information not available 03/06/2023 ADL: Do You Need Help With Daily Activities Such As Bathing, Preparing Meals, Dressing, Or Cleaning? No [email or web address] Information not available 03/06/2023 What Is Your Housing Situation Today? I Have Housing [email or web address] Information not available 03/06/2023 Do You Use Any Illicit Or Recreational Drugs? No [email or web address] Information not available 03/06/2023 Sex: Unknown Functional Status None recorded. Mental Status None recorded. Family History Relationship Description Onset Age of this Age Resolved Age Notes LastModified by Organization Details LastModified Time Mother Diabetes mellitus [email or web address] Not available 03/06 10:06:59 Father Cirrhosis of liver Not available 03/06 10:07:13 Medical History Condition Response Diabetes N Coronary Artery Disease N CHF N Parkinson's Disease N Cancer N Stroke N Dementia N Asthma Y COPD N Depression Y Hypothyroidism Y High Cholesterol Y Rheumatoid Arthritis N Pulmonary Embolism N Hypertension N A-fib N Osteoporosis N Kidney Disease N Gynecological HistoryNo gynecological history recorded. Obstetrics History GPAL:G 0 P 0 0 0 0 Past Encounters Encounter ID Performer Location Encounter Start Date Encounter Closed Date Diagnosis/Indication Diagnosis SNOMED-CT Code Diagnosis ICD10 Code Diagnosis Note [id number] DEVIN Chavez [facility] [address] [place] [address] 03/06/2023 10:03:54 03/09/2023 15:02:44 Dysuria 89066873 R30.0 Status of condition: {{Acute* E xacerbatio n/Acute on chronic Ch ronic Stab le Worseni ng/Progres benjamin Uncon trolled Cr itical: Warrants escalation to ED. Undete rmined: Unclear staging of condition. Needs further evaluation and management by PCP and/or Specialist }}. Testing/Re sults: UA shows trace blood and trace leuks. culture is pending. Discussion :keep hydrated and push fluids.daniela id caffeine.r ecommend otc Azo take as directed on the package.ur ine culture is pending. Plan, Medication Management & Follow-up recommenda tions:foll ow up with pcp in 3-5 days or sooner prn.go to the ER immediatel y with worsening symptoms fever, chills, vomiting, flank pain, hematuria, abdominal pain, weakness, dizziness, cp, sob, decreased urine output. Asthma [id number] J45.90 9 Status of condition: {{Acute Ex acerbation /Acute on chronic Ch ronic* Sta ble Worsen ing/Progre ssion Unco ntrolled C ritical: Warrants escalation to ED. Undete rmined: Unclear staging of condition. Needs further evaluation and management by PCP and/or Specialist }}. Testing/Re sults: lungs are clear on exam, O2 98% RA Discussion : asthma is controlled on current regimen. she is asymptomat ic. Plan, Medication Management & Follow-up recommenda tions:foll ow up with pcp as scheduled. go to the ER with worsening symptoms cp, sob, wheezing, fever, dizziness, weakness. Health Concerns Section Related Observation LastModified by Organization Detai ls LastModified Time None Recorded Concern Status LastModified by Organization Details LastModified Time None Recorded Advance Directives Directive None Recorded Payers Insurance Date Sequence Insurance Name Policy Number Policy Cha Covered Member ID Cha Member ID Guarantor Name 03/05/2023 1 *SELF PAY* Augusta Daudelin [id number] Augusta Daudelin 03/07/2023 1 [place] Augusta Daudelin [id number] Augusta Daudelin 03/06/2023 1 [place] Augusta Daudelin [id number] Augusta Daudelin 03/09/2023 1 [place] Augusta Daudelin [id number] Augusta Daudelin 03/07/2023 1 [employer] (MEDICAID REPLACEMENT - HMO) Augusta Daudelin [id number] Augusta Daudelin 03/09/2023 1 [employer] (MEDICAID REPLACEMENT - HMO) [employer] Augusta Daudelin [id number] Augusta Daudelin Notes Date Note Type Note Provider Name and Address Organization Details Recorded Time 03/06/2023 text/html 57 y/o female new to and provider with hx of Asthma, hyperlipidemia, depression, anxiety, hypothyroidism. pt c/o x 3 days now she has had burning with urination and suprapubic pain. no frequency or urgency. denies flank pain, hematuria. she reports nausea intermittently. no vomiting or diarrhea. no cp, sob, weakness. she does have hx of UTIs and chronic hernia with multiple repairs- prior infection in the mesh that lead to sepsis a couple years ago. she saw a surgeon and was told she needs to loose weight before they could operate again. no skin rash, constipation, blood in the stool. no sick contacts. she denies decreased urine output. DEVIN Chavez [address] [place] [address], [place], [address], [place] [facility] 03/06/2023 11:09:17 OBGyn Episode No OBEpisode recorded.
[2025-01-02 10:28] LABS: MANUAL DIFF FLAG NO
[2025-01-02 10:44] LABS: Basophils Absolute Auto 0.1 X10*3/uL (0.0-0.2); Basophils Percent Auto 0.8 % (0-2); Eosinophils Absolute Auto 0.4 X10*3/uL (0.0-0.4); Eosinophils Percent Auto 5.3 % (0-4); Hematocrit 43.5 % (37.0-47.0); Hemoglobin 13.7 g/dl (12.0-16.0); Imm Gran Abs Auto 0.01 X10*3/uL (0.00-0.03); Imm Gran Pct Auto 0.2 % (0.0-0.4); Lymphocytes Absolute Auto 1.5 X10*3/uL (1.2-4.9); Lymphocytes Percent Auto 22.9 % (20-40); Mean Corpuscular HGB Conc 31.5 g/dl (31.0-35.0); Mean Corpuscular Hemoglobin 26.7 pg (27.0-33.0); Mean Corpuscular Volume 84.8 fL (80.0-98.0); Mean Platelet Volume 11.3 fL (9.4-12.3); Monocytes Absolute Auto 0.4 X10*3/uL (0.1-1.2); Monocytes Percent Auto 5.6 % (2-11); Neutrophils Absolute Auto 4.3 x10*3/uL (2.0-8.3); Neutrophils Percent Auto 65.2 % (45-73); Platelet Count 256 X10*3/uL (160-400); Red Blood Count 5.13 X10*6/uL (4.20-5.50); Red Cell Distribution Width 13.9 % (11.0-16.0); White Blood Count 6.6 X10*3/uL (4.8-10.8)
[2025-01-02 11:00] LABS: Alanine Aminotransferase 16 U/L (0-31); Albumin Level 4.3 g/dL (3.5-5.0); Alkaline Phosphatase 77 U/L (39-117); Anion Gap 13 (12-20); Aspartate Amino Transferase 21 U/L (5-31); Bilirubin Total 0.6 mg/dL (0.0-1.0); Blood Urea Nitrogen 17 mg/dL (9-16); Calcium 9.5 mg/dL (8.4-10.2); Carbon Dioxide 27 mmol/L (22-29); Chloride 107 mmol/L (96-108); Cholesterol 208 mg/dL (<200); Estimated Glomerular Filt Rate > 60; Glucose Fasting 87 mg/dL (60-99); HDL Cholesterol 66 mg/dL (>40); LDL Cholesterol Calculated 127 mg/dL (<100); Sodium 143 mmol/L (135-145); Total Protein 7.1 g/dL (6.5-8.0); Triglycerides 79 mg/dL (<150)
[2025-01-02 11:20] LABS: TSH reflex Free T4 3.03 uIU/mL (0.32-4.0)
[2025-01-08 14:09] LABS: Vitamin D 25-OH, D2 <4 ng/mL; Vitamin D 25-OH, D3 39 ng/mL; Vitamin D 25-OH, Total 39 ng/mL (30-100)
== END 2025-01-02 06:04 | disposition home or self-care (01) ==
LOC: HO.HMGCLDS 06:03
PROVIDERS: PCP Internal Medicine; Visit Provider Internal Medicine
DX: Z00.00 Encounter for general adult medical examination without abnormal findings (principal); E03.9 Hypothyroidism, unspecified; E78.5 Hyperlipidemia, unspecified
CPT/HCPCS: 36415; 80053; 80061; 82306; 84443; 85025

== ENCOUNTER 2025-01-16 07:48 | Outpatient (AMB) | payer MEDICARE, SELFPAY ==
--- OUTSIDE RECORDS SUMMARY | 2025-01-16 07:50 | XMS_ITS | Data Portability ---
Author Organization [place] - [facility],, CONCEPCION CARRERA MD Address [address] [place] [address] Care Team Providers Care Deputy Sheriff Building Guard Name Role Phone ARANZA CRESPO Primary Care Provider Assessment No assessment recorded. Plan of Treatment Reminders Order Date Submit Date Provider Last Modified By Organization Details Last Modified Time Details Appointments None recorded. Lab pap test, thinprep, cervical 2016 017 [facility], Cytopathology Service, [address] [place], [address], 7 12:28:01 wet mount, vaginal 2016 017 [email or web address] 1 In-Office Order, Internal Use Only DO Not Attach Compendium DO Not Attach Compendium, Do Not Delete/merge, [id number] 7 16:22:09 fecal occult blood, stool 2016 017 [email or web address] 1 In-Office Order, Internal Use Only DO Not Attach Compendium DO Not Attach Compendium, Do Not Delete/merge, [id number] 7 16:21:41 urinalysi s, dipstick 2015 016 [id number]_ [id number] In-Office Order, Internal Use Only DO Not Attach Compendium DO Not Attach Compendium, Do Not Delete/merge, [id number] 6 04:20:31 wet mount, vaginal 2015 016 [id number]_PATCH_ [id number] In-Office Order, Internal Use Only DO Not Attach Compendium DO Not Attach Compendium, Do Not Delete/merge, [id number] 6 04:20:31 pap, LB, vaginal 2015 016 [facility], Cytopathology Service, [address] [place], [address], 6 11:46:12 fecal occult blood, stool 2015 016 [email or web address] 1 In-Office Order, Internal Use Only DO Not Attach Compendium DO Not Attach Compendium, Do Not Delete/merge, [id number] 6 15:46:50 wet mount, vaginal 2014 015 GABO In-Office Order, Internal Use Only DO Not Attach Compendium DO Not Attach Compendium, Do Not Delete/merge, [id number] 5 15:09:09 Referral None recorded. Procedures None recorded. Surgeries None recorded. Imaging MAMMO, screening , digital, bilateral 2016 017 [facility], [address], [place], [address], 8 08:24:00 MAMMO, screening , digital, bilateral 2015 016 [facility] [address] [place], [address], 7 09:06:47 Medication Orders Estrace 0.01% (0.1 mg/gram) vaginal cream 2016 017 [email or web address] 1 [id number], [address] [place], [address], 7 16:21:41 fluconazo le 150 mg tablet 2016 017 INTERFACE [facility], [address] [place], [address], 7 16:21:56 fluconazo le 150 mg tablet 2015 016 [email or web address] [facility], [address] [place], [address], 7 15:37:10 Estrace 0.01% (0.1 mg/gram) vaginal cream 2014 015 [email or web address] 1 [facility], [address] [place], [address], 5 15:07:27 fluconazo le 150 mg tablet 2014 015 [email or web address] [facility], [address] [place], [address], 7 15:37:10 Estrace 0.01% (0.1 mg/gram) vaginal cream 2014 015 [email or web address] 1 [facility], [address] [place], [address], 5 15:07:31 Patient TargetsNo targets recorded. Patient Instructions Encounter Date Encounter Id Patient Instructions Last Modified By Organization Details Last Modified Time 04/24/2015 [id number] atrophic vaginit is: care instructions [email or web address] Not available 04/24/2015 15:40:54 She is here as a new patient for a complaint of dyspareunia and vaginal dryness.? ? ? She had a LAVHRSO mi1316 for fibroids.? ? ? She had surgery at age 23 for cysts on the ovary 25 pounds of cysts and LSO was done. She was taking ERT for 6 months after surgery, but then was advised to stop. She has not had any hormones since 2004, 11 years.? ? ? 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 Flores in 08/2014. [...] see how she is doing and discuss custodial usage of the E2 cram. RX and 2 free samples given, Estrace cream. Face to face discussion 45 minutes Not available 04/24/2015 15:07:31 07/17/2015 [id number] vaginal yeast infection: care instructions [email or web address] Not [...] E2 cream. Not available 07/17/2015 15:07:27 10/12/2015 [id number] She is here for annual exam, is [...] in detail. Not available 10/12/2015 15:46:50 04/15/2016 [id number] vaginal yeast infection: care instructions [id number] Not available 08/13/2016 04:20:31 She went to [facility] and has been on an antibiotic for 4 days, and complains of vaginal burning to the point it hurts to sit. she has a monilia vaginitis. The antibiotics are finished today. Urine dip is negative. RX Diflucan, call if symptoms persist or worsen, possible side effects discussed. Not available 04/15/2016 14:10:00 11/18/2016 [id number] atrophic vaginit is: care instructions Not available [...] this. We discussed a referral to a potato chip maker and/or weight inventory management specialist. All questions were answered. She mohinder think [...] DO Not Attach Compendium, Do Not Delete/merge, [id number] 11/18/2016 16:21:40 11/19/19 17 11/18/2016 ronnie ulloa Trichomonas negati ve Not Available In-Office Order Internal Use Only DO Not Attach Compendium DO Not Attach Compendium, Do Not Delete/merge, [id number] 11/18/2016 16:21:40 11/19/19 17 11/18/2016 wet mount , vagin al Hyphae positi ve Not Available In-Office Order Internal Use Only DO Not Attach Compendium DO Not Attach Compendium, Do Not Delete/merge, [id number] 11/18/2016 16:21:40 11/19/19 17 11/18/2016 wet mount , vagin al atrophic epithelium positi ve Not Available In-Office Order Internal Use Only DO Not Attach Compendium DO Not Attach Compendium, Do Not Delete/merge, [id number] 11/18/2016 16:21:40 11/19/19 17 11/18/2016 fecal occul [...] DO Not Attach Compendium, Do Not Delete/merge, [id number] 04/15/2016 13:32:33 04/15/20 16 04/15/2016 urina lysis , dipst ick AGUEDA Negati ve Not Available In-Office Order Internal Use Only DO Not Attach Compendium DO Not Attach Compendium, Do Not Delete/merge, [id number] 04/15/2016 13:32:33 10/12/19 16 10/12/2015 fecal occul t blood , stool Occult Blood negati ve Not Available In-Office Order Internal Use Only DO Not Attach Compendium DO Not Attach Compendium, Do Not Delete/merge, [id number] 10/12/2015 15:35:52 07/17/20 15 07/17/2015 wet mount , vagin al Clue Cells negati ve Not Available In-Office Order Internal Use Only DO Not Attach Compendium DO Not Attach Compendium, Do Not Delete/merge, [id number] 07/17/2015 14:46:36 07/17/20 15 07/17/2015 wet mount , vagin al Trichomonas negati ve Not Available In-Office Order Internal Use Only DO Not Attach Compendium DO Not Attach Compendium, Do Not Delete/merge, [id number] 07/17/2015 14:46:36 07/17/20 15 07/17/2015 wet mount , vagin al Hyphae positi ve Not Available In-Office Order Internal Use Only DO Not Attach Compendium DO Not Attach Compendium, Do Not Delete/merge, [id number] 07/17/2015 14:46:36 07/17/20 15 07/17/2015 wet mount , vagin al atrophic epithelium positi ve Not Available In-Office Order Internal Use Only DO Not Attach Compendium DO Not Attach Compendium, Do Not Delete/merge, [id number] 07/17/2015 14:46:36 10/12/19 16 10/12/2015 pap, LB [id number] ThinP rep Pap, Image d: NEGAT YOVANI [...] at the above addre ss. Not Available [facility], Cytopathology Service [address] [place], [address], 10/14/2015 11:46:12 11/19/19 17 11/18/2016 pap, LB [email or web address] ThinP rep Pap, Image d: NEGAT YOVANI [...] . LAST PAP MENOP AUSE Not Available [facility], Cytopathology Service [address] [place], [address], 11/21/2016 12:28:01 Result Notes None recorded. Problems Name Problem SNOMED Code Status Onset Date Resolution Date Notes Provider Name and Address Organization Details Recorded Time Dyspareunia 35949719 Active Concepcion Carrera MD [address], [place], [address], [place] - [facility], 6 15:45:26 Complicated ovarian cyst Active 2002, 25 pounds of contents , benign Concepcion Carrera MD [address], [place], [address], [place] [facility], 6 15:45:26 Atrophic vaginitis 63066150 Active Concepcion Carrera MD [address], [place], [address], [place] [facility], 6 15:45:26 Diverticulit is 977506096 Active had surgery 08/2014 Concepcion Carrera MD [address], [place], [address], [place] [facility], 6 15:45:26 Candidal vulvovaginit is 49689419 Active Concepcion Carrera MD [address], [place], [address], [place] [facility], 6 15:45:26 Problem Notes None recorded. Procedures Surgical History Date Name Laterality Status Provider Name and Address Organization Details Recorded Time 03/28/20 16 Other completed Elvia Meczywor [place] - [facility], 11/18/2016 15:43:23 08/28/19 15 Cholecystectomy completed Elvia Mecelijahwor [place] - [facility], 04/24/2015 14:09:23 08/28/19 15 Other completed Concepcion Carrera MD [address], [place], [address], [place] - [facility], 07/17/2015 14:43:51 08/28/19 12 Other completed Elvia Meczywor [place] - [facility], 04/24/2015 14:09:23 08/28/19 11 Other completed Elvia Meczywor [place] - [facility], 04/24/2015 14:09:23 08/28/19 08 Other completed Elvia Meczywor [place] - [facility], 10/12/2015 15:34:20 08/28/19 03 Total Abdominal Hysterectomy completed Concepcion Carrera MD [address], [place], [address], [place] - [facility], 04/24/2015 14:41:55 08/28/18 88 Removal of ovary/tube(s) completed Concepcion Carrera MD [address] [facility] [address] [place] [address], [place] - [facility], 04/24/2015 14:41:55 Imaging Results None recorded. Procedure Notes None recorded. Medical Equipment None Reported. Allergies Allergen ID Allergen Name Allergen Category Reaction Reaction Severity Criticality Documentation Date Start Date Code Code System Note Provider Name and Address Organization Details Recorded Time 04947 Product containin g penicilli n (product) medicatio n rash Not available Not available 04/24/2015 70596 8001 SNOMED Elvia JULISA Cross in [facility], 5 14:09:24 Requip medicatio n rash Not available Not available 04/24/2015 78550 1 RxNorm Elvia Jenelle kellogg [place] - [facility], 5 14:09:24 Medications Name Sig Start Date Stop Date Status Note LastModified by Organization Details LastModified Time estrace 0.1 mg/gm crea active Not Available Not Available N ot Available fluconazole 150 mg tabs active Not Available Not Available Not Available naproxen 500 mg tabs active Not Available Not Available Not Available terconazole 0.4 % crea active Not Available Not Available N ot Available oxybutynin chloride er 5 mg tb24 [...] 5 165.1 cm 38.5 kg/m2 64 /min 593038. 997730 g 111 mm[Hg] 59 mm[Hg] Elvia Almanzar [place] - [facility], 5 14:09:24 Date Recorded Body height Body mass index (BMI) Body weight Provider Name and Address Organization Details Last Updated DateTime 07/17/2015 165.1 cm 38.4 kg/m2 545632.9833 22 g Andree De La Vega in [facility], 07/17/2015 14:37:37 Date Recorded Heart rate Systolic blood pressure Diastolic blood pressure Provider Name and Address Organization Details Last Updated DateTime 07/17/2015 62 /min 122 mm[Hg] 65 mm[Hg] Elvia De La Vega in [facility], 07/17/2015 14:48:54 Date Recorded Body height Body weight Body mass index (BMI) Heart rate Systolic blood pressure Diastolic blood pressure Provider Name and Address Organization Details Last Updated DateTime 6 165.1 cm 252979. 826400 g 37.6 kg/m2 64 /min 116 mm[Hg] 72 mm[Hg] Elvia De La Vega in [facility], 6 15:34:21 Date Recorded Body height Heart rate Body weight Body mass index (BMI) Body temperature Systolic blood pressure Diastolic blood pressure Provider Name and Address Organization Details Last Updated DateTime 6 165.1 cm 59 /min 87609.7 3 g 36.4 kg/m2 98.2 [degF] 115 mm[Hg] 61 mm[Hg] Andree De La Vega in [facility], 6 13:31:14 Date Recorded Body height Body weight Body mass index (BMI) Heart rate Systolic blood pressure Diastolic blood pressure Provider Name and Address Organization Details Last Updated DateTime 7 165.1 cm 784934. 94 g 37 kg/m2 71 /min 126 mm[Hg] 74 mm[Hg] Elvia De La Vega in [facility], 7 15:41:37 Social History Question Answer Notes LastModified by Organizat ion Details LastModified Time Tobacco Smoking Status Never Smoker Not Available [facility] 06/30/2020 03:19:40 What Is Your Level Of Caffeine Consumption? Occasional [id number] Information not available 06/30/2020 What Type Of Diet Are You Following? REGULAR [id number] Information not available 06/30/2020 Which Illicit Or Recreational Drugs Have You Used? No [id number] Information not available 06/30/2020 Do You Reside In Or Have You Traveled To An Area Where Ebola Virus Transmission Is Active? No [id number] Information not available 06/30/2020 Education 12 [email or web address] Information no t available 04/24/2015 How Many Days In The Past Year Have You Had A Heavy Drinking Consumption (4+ Female, 5+ Male)? 0 Information no t available 04/15/2016 High Number Of Sexual Partners No Information not available 04/15/2016 To Which Gender Do You Self-identify? Female Information not available 04/15/2016 Marital Status [facility] [facility] Informatio n not available 04/24/2015 Are You Sexually Active? Yes [id number] Information not available 06/30/2020 How Much Tobacco Do You Smoke? No [id number] Information not available 06/30/2020 General Stress Level Medium [facility] [facility] Information not available 10/12/2015 Have You Recently (within The Last 12 Weeks, Or During A Current ) Traveled To Or Lived In A Zika-affected Area? No Information not available 04/15/2016 Sex: Unknown Functional Status Question Answer Note LastModified by Organizat ion Details LastModified Time What is your level of alcohol consumption? 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 Occasional [id number] Information not available 06/30/2020 Mental Status None [...] for MyRisk panel N Autoimmune Condition N Depression Y Lung Disease N Defects or Inherited Disease N History of Ovarian Cancer N BRCA testing in past N Anxiety Disorder Y Arthritis Y Infertility N History of Cancer N Endometriosis Y Kidney or Bladder Problems Y Thyroid Problems N GI Problems Y Anemia N History of Breast Cancer N Osteopenia N Psychiatric Illness N Diabetes N Headaches or Migraines Y Asthma Y Hepatitis N Heart Disease N Hypertension [...] SNOMED-CT Code Diagnosis ICD10 Code Diagnosis Note [id number] MD CONCEPCION Ortiz MD [address] [place] [address], [address] [address] 04/24/2015 13:33:01 04/24/2015 15:51:14 Dyspareunia 91754770 Atrophic vaginitis 51138941 49307 MD CONCEPCION Ortiz MD [address] [place] [address] [place] [address] 07/17/2015 14:32:27 07/17/2015 15:35:48 Candidal vulvovaginitis 46906487 B37.3 Atrophic vaginitis 62149 000 N95.2 [id number] MD CONCEPCION Ortiz MD [address] [place] [address] 10/12/2015 15:24:49 10/12/2015 16:05:10 Specialized medical examination 84815245 Z01.419 Screening for malignant neoplasm of rectum 718475232 Z12.12 Screening mammography 24 401968 Z12.31 [id number] MD CONCEPCION Ortiz MD [address] [place] [address], [address] [place] [address] 04/15/2016 13:20:40 04/15/2016 14:43:12 Acute lower urinary tract infection 774106772 R30.0 Candidal vulvovaginitis 89638259 B37.3 [id number] MD CONCEPCION Ortiz MD [address] [place] [address] [place] [address] 11/18/2016 15:35:57 11/21/2016 08:41:06 Specialized medical examination 53609976 Z01.419 Screening for malignant neoplasm of rectum 103665483 Z12.12 Screening mammography 24 410109 Z12.31 Atrophic vaginitis 91501 000 N95.2 Candidal vulvovaginitis 05271923 B37.3 Health Concerns Section Related Observation LastModified by Organization Detai ls LastModified Time None Recorded Concern Status LastModified by Organization Details LastModified Time None Recorded Advance Directives Directive None Recorded Payers Encounter Date Sequence Insurance Name Policy Number Policy Cha Covered Member ID Cha Member ID Guarantor Name 04/24/2015 1 [facility] [id number] Augusta Daudelin [id number] Augusta Daudelin 07/17/2015 1 [facility] [id number] Augusta Daudelin [id number] Augusta Daudelin 10/12/2015 1 [facility] [id number] Augusta Daudelin [id number] Augusta Daudelin 04/15/2016 1 [facility] [id number] Augusta Daudelin [id number] Augusta Daudelin 11/18/2016 1 [facility] [id number] Augusta Daudelin [id number] Augusta Daudelin Notes Date Note Type Note Provider Name and Address Organization Details Recorded Time 04/15/2016 text/html She went to [facility] and has been on an antibiotic for 4 days, and complains of vaginal burning to the point it hurts to sit. Concepcion Carrera MD [address], [place], [address], [place] - [facility], 04/15/2016 14:10:23 11/18/2016 text/html She is here for annual exam, is doing well. She notes a good improvement with the E2 vaginal cream. She is using mucinex and antibiotics for a sinus infection now. Concepcion Carrera MD [address], [place], [address], [place] [facility], 11/18/2016 16:23:34 OBGyn Episode No OBEpisode recorded.
--- OUTSIDE RECORDS SUMMARY | 2025-01-16 07:50 | XMS_ITS | Data Portability ---
Author Organization [place] [facility] Address [address] [place] [id number] Care Team Providers Care Cotton Grader Name Role Phone ARANZA CRESPO Primary Care Provider [phone] Assessment Encounter Date Assessment Date Assessment LastModified [...] after care of this patient according to [facility]'s infection prevention protocols. [email or web address] Not available 03/06/2023 10:49:43 Plan of Treatment Reminders Order Date Submit Date Provider Last Modified By Organization Details Last Modified Time Details Appointments None recorded. Lab urinalysis , dipstick 2022 023 [email or web address] [address] [facility], [address] [place] [address], [id number], 10:30:49 culture, urine 2022 023 GABO [facility] (Centralized Electronic Ordering - All Locations), Patient Can Go To The Location Of Their Choice, [id number] 06:51:16 Referral None recorded. Procedures None recorded. Surgeries None recorded. Imaging None recorded. Medication Orders None recorded. Patient TargetsNo targets recorded. Patient Instructions Encounter Date Encounter Id Patient Instructions Last Modified By Organization Details Last Modified Time 03/06/2023 [id number] BASIC INFORMATIO N Urinary tract infections(UTI) can [...] in your condition between 8am-10pm, please [facility] at [phone] to help navigate your care. [email or web address] Not available 03/06/2023 10:31:44 Reason for Referral None Reported. Results Created Date Observation Date Name Description Value Unit Range Abnormal Flag Note LastModifiedBy Organization Detail LastModifiedTime 03/06/2003/07/2023 URINE CULTU RE specimen description CLEAN CATCH (URINE ) Not Available [facility] (Centralized Electronic Ordering - All Locations) Patient Can Go To The Location Of Their Choice, [id number] 03/08/2023 06:51:16 03/06/2003/07/2023 URINE CULTU RE special requests NONE Not Available [facility] (Centralized Electronic Ordering - All Locations) Patient Can Go To The Location Of Their Choice, [id number] 03/08/2023 06:51:16 03/06/2003/08/2023 URINE CULTU RE culture NO GROWTH Not Available [facility] (Centralized Electronic Ordering - All Locations) Patient Can Go To The Location Of Their Choice, [facility] 03/08/2023 06:51:16 03/06/20 23 03/08/2023 URINE CULTU RE report status FINAL 2022 Not Available [facility] (Centralized Electronic Ordering - All Locations) Patient Can Go To The Location Of Their Choice, [id number] 03/08/2023 06:51:16 03/06/2003/06/2023 urina lysis , dipst ick Appearance clear Not Available [facility] [address] [place], [address], 03/06/2023 10:12:18 03/06/2003/06/2023 urina lysis , dipst ick Color yellow Not Available [facility] [address] [place], [address], 03/06/2023 10:12:18 03/06/20 23 03/06/2023 urina lysis , dipst ick Glucose (ref: neg) Neg Not Available [facility] [address] [place], [address], 03/06/2023 10:12:18 03/06/2003/06/2023 urina lysis , dipst ick Bilirubin (ref: neg) Neg Not Available [facility] [address] [place], [address], 03/06/2023 10:12:18 03/06/20 23 03/06/2023 urina lysis , dipst ick Ketones (ref: neg) Neg Not Available [facility] [address] [place], [address], 03/06/2023 10:12:18 03/06/20 23 03/06/2023 urina lysis , dipst ick Specific [place] (ref: 1.005 - 1.030) 1.005 Not Available [facility] [address], [place], [address], 03/06/2023 10:12:18 03/06/20 23 03/06/2023 urina lysis , dipst ick Blood (ref: neg) ? ? ? Not Available [facility] [address] [place], [address], 03/06/2023 10:12:18 03/06/20 23 03/06/2023 urina lysis , dipst ick pH (ref: 5.0-7.0) 7.5 Not Available [facility] [place] [address], [place], [address], 03/06/2023 10:12:18 03/06/20 23 03/06/2023 urina lysis , dipst ick Protein (ref: neg) Neg Not Available [place] [address], [place], [address], 03/06/2023 10:12:18 03/06/20 23 03/06/2023 urina lysis , dipst ick Urobilinogen (ref: 0.2-1) 0.2 Not Available [place] [address], [place], [address], 03/06/2023 10:12:18 03/06/20 23 03/06/2023 urina lysis , dipst ick Nitrites (ref: neg) negati ve Not Available [facility] [address], [place], [address], 03/06/2023 10:12:18 03/06/2003/06/2023 urina lysis , dipst ick Leukocytes (ref: neg) ? ? ? Not Available [facility] [address], [place], [address], 03/06/2023 10:12:18 03/06/20 23 03/06/2023 urina lysis , dipst ick [facility], [address] [place] [address], [phone] Not Available [facility] [address] [facility], [place], [address], 03/06/2023 10:12:18 Result Notes None recorded. Procedures Surgical History Date Name Laterality Status Provider Name and Address Organization Details Recorded Time Hernia Repair completed DEVIN Chavez [address] [place], [address], [place] [facility] 03/06/2023 10:08:09 Imaging Results None recorded. Procedure Notes None recorded. Medical Equipment None Reported. Allergies Allergen ID Allergen Name Allergen Category Reaction Reaction Severity Criticality Documentation Date Start Date Code Code System Note Provider Name and Address Organization Details Recorded Time 505552 Bactrim medicatio n Not available Not available Not available 03/06/2023 41014 9 RxNorm DEVIN Chavez [facility] [place], [address], [place] [facility] 3 10:04:54 147607 Product containin g penicilli n (product) medicatio n Not available Not available Not available 03/06/2023 28224 8001 SNOMED DEVIN Chavez [facility] [place], [address], [place] [facility] 3 10:05:01 889242 Cipro medicatio n Not available Not available Not available 03/06/2023 52596 3 RxNorm DEVIN Chavez [facility] [place], [address], [place] [facility] 3 10:05:07 [...] /min 130 mm[Hg] 80 mm[Hg] Not Available [facility] 3 10:07:48 Social History Question Answer Notes LastModified by Organizat ion Details LastModified Time Tobacco Smoking Status Never Smoker DEVIN Chavez [address], [place], [address], [place] [facility] 03/06/2023 10:07:29 Fall Risk: Do You Feel Unsteady When Standing Or Walking? No [email or web address] Information not available 03/06/2023 Excessive Alcohol Or Drug Use No [email or web address] Information not available 03/06/2023 Does This Patient Have A PCP? Yes [email or web address] Information not available 03/06/2023 Has The Patient Seen Their PCP In The Past 6 Months? Yes [email or web address] Information not available 03/06/2023 ADL: Do You Need Help With Daily Activities Such As Bathing, Preparing Meals, Dressing, Or Cleaning? No [email or web address] Information not available 03/06/2023 What Is Your Housing Situation Today? I Have Housing [email or web address] Information not available 03/06/2023 Sex: Unknown Functional Status Question Answer Note LastModified by Organizat ion Details LastModified Time Do you use any illicit or recreational drugs? No [email or web address] Information not available 03/06/2023 What is your level of alcohol consumption? Occasional [email or web address] Information not available 03/06/2023 Mental Status None recorded. Family History Relationship Description Onset Age of this Age Resolved Age Notes LastModified by Organization Details LastModified Time Mother Diabetes mellitus [email or web address] Not available 03/06 10:06:59 Father Cirrhosis of liver [email or web address] Not available 03/06 10:07:13 Medical History Condition Response Diabetes N Coronary Artery Disease N CHF N Parkinson's Disease N Cancer N Stroke N Dementia N Asthma Y Hypothyroidism Y Depression Y COPD N High Cholesterol Y Rheumatoid Arthritis N Pulmonary Embolism N Hypertension N A-fib N Osteoporosis N Kidney Disease N Gynecological HistoryNo gynecological history recorded. Obstetrics History GPAL:G 0 P 0 0 0 0 Past Encounters Encounter ID Performer Location Encounter Start Date Encounter Closed Date Diagnosis/Indication Diagnosis SNOMED-CT Code Diagnosis ICD10 Code Diagnosis Note [id number] DEVIN Chavez [facility] [place] [facility] [place] [address] [place] [address] 03/06/2023 10:03:54 03/09/2023 15:02:44 Dysuria 81251501 R30.0 Status of condition: {{Acute* E xacerbatio [...] dizziness, cp, sob, decreased urine output. Asthma 368521257 J45.90 9 Status of condition: {{Acute Ex [...] Name 03/05/2023 1 *SELF PAY* Augusta Daudelin [id number] Augusta Daudelin 03/07/2023 1 [place] Augusta Daudelin [id number] Augusta Daudelin 03/06/2023 1 [place] Augusta Daudelin [id number] Augusta Daudelin 03/09/2023 1 [place] Augusta Daudelin [id number] Augusta Daudelin 03/07/2023 1 [employer] (MEDICAID REPLACEMENT - HMO) Augusta Daudelin [id number] Augusta Daudelin 03/09/2023 1 [employer] (MEDICAID REPLACEMENT - HMO) [employer] Augusta Daudelin [id number] Augusta Daudelin Notes Date Note Type Note [...] she denies decreased urine output. DEVIN Chavez [address], [place], [address], [place] [facility] 03/06/2023 11:09:17 OBGyn Episode No OBEpisode recorded.
--- NOTE | 2025-01-16 08:08 | A.OFFVIS_ITS ---
Intake Vital Signs 01/16/25 08:13 Height 5 ft 5 in Weight 223 lb BMI 37.1 BP 128/80 Blood Pressure Location Lt brachial Position Sitting Respiration 18 Pulse 70 Pulse Source Pulse Oximeter Temp 98.3 F Temp Source Oral Pulse Oximetry (%) 97 Oxygen Delivery Method Room Air Intake Visit Reasons: AWV G0438 Allergies ciprofloxacin [From CIPRO] Allergy (Intermediate, Verified 01/16/25 08:15) RASH Penicillins [PENICILLINS] Allergy (Intermediate, Verified 01/16/25 08:15) RASH ropinirole [From REQUIP] Allergy (Intermediate, Verified 01/16/25 08:15) RASH sulfamethoxazole [From BACTRIM] Allergy (Intermediate, Verified 01/16/25 08:15) RASH Medication List - Last Reconciled 01/16/25 by Vicky Walsh MD acetaminophen ER (Tylenol 8 Hour) 650 mg PO Q8H PRN Advair HFA 115-21 mcg/actuation (fluticasone propion-salmeterol) 2 puffs inhalation BID NS albuterol sulfate 5 mg inhalation Q6H PRN bisacodyl (Dulcolax (bisacodyl)) 10 mg (2 x 5 mg) PO BEDTIME budesonide-formoterol 80-4.5 mcg/actuation (Symbicort) 2 puffs inhalation BID carboxymethylcellulose sodium 0.5% (Refresh Tears) 1 drp ophthalmic (eye) BID cholecalciferol (vitamin D3) 25 mcg PO DAILY clotrimazole 1% 1 appl topical BID cyclosporine 0.05% (Restasis) drps ophthalmic (eye) BID ibuprofen-diphenhydramine cit 200-38 mg (Motrin PM) 2 caps PO BEDTIME PRN melatonin 5 mg PO BEDTIME methylcellulose (laxative) (Citrucel) 500 mg PO DAILY polyethylene glycol 3350 (Miralax) 238 grams PO ONCE HPI AWV G0438 HPI Details Initiated the conversation about Advanced Directives. Advanced Directives help? patients prepare for current and future decisions about their medical treatment? and place of care. Discussed with patient that it is a process where a patients? current condition and prognosis are reviewed, their wishes for information? regarding their illness are elicited, and likely medical dilemmas are presented? and options discussed. The form can be amended as needed, reviewed yearly and? make changes as needed IPPE/AWV ? year old presents? for her ? Annual? Wellness Visit, initial visit.? Medical / Social History Reviewed? Past Medical History ?Yes? . ? [place]? of Care / Care Team list updated ?Yes . ? Surgical/Hospitalization? History ?Yes . ? Current Medications? (including OTC and supplements) ?Yes . ? Family History ?Yes? . ? Tobacco? Control form ?Yes . ? AUDIT-C (Alcohol use) form? ?Yes . ? Illicit drug use in Social? History ?Yes . ? Current diagnosis of? depression? ?No ? Appropriate PHQ2/PHQ9? completed ?Yes . ? Data entered by ?Medical? Supervisory Cbp Officer and reviewed by provider ? Fall Risk ? Fall? History? Have you had any falls with? injury in the past year? ?No . ? Have you had two or more? falls in the past year? ?No . ? Fall Risk Assessment: ?No? falls in the past year . ? HRA filled out by? the patient, reviewed by Provider and scanned. ? IPPE/AWV ? Balance? [place]? ?Yes . ? Tandem? walk ?Yes . ? Walk and? Turn ?Yes . ? Rise from? sit to stand ?Yes . ?Vision? Corrective? lens ?Yes ? Vision? screen ? Up-to-date, has an appointment [] for vision? screening and glaucoma screening ?Hearing? Whisper? test ?pass .? Initiated the conversation about Advanced Directives. Advanced Directives help? patients prepare for current and future decisions about their medical treatment? and place of care. Discussed with patient that it is a process where a patients? current condition and prognosis are reviewed, their wishes for information? regarding their illness are elicited, and likely medical dilemmas are presented? and options discussed. The form can be amended as needed, reviewed yearly and? make changes as needed Written? Plan?Completed. See Patient? Documents. REPLACED BY [facility] Medical History (Updated 01/16/25 @ 12:49 by Vicky Walsh MD) Asthma Hyperglycemia Lumbar pain Shoulder pain, bilateral Vertigo (~12/21/23) Obesity Depression Annual physical exam Hypothyroid Hyperlipidemia Abdominal wall hernia Fibromyalgia Neck pain Postoperative abdominal hernia Chronic asthma History of mammogram Surgical History History of cholecystectomy (03/10/15) History of varicose vein stripping (01/2016) History of foot surgery (2011) History of removal of laparoscopic gastric banding device (2010) History of hernia repair (2017) Hx of laparoscopic gastric banding (07/2008) History of total hysterectomy (08/2002) H/O oophorectomy H/O: hysterectomy (1987) H/O colonoscopy Family History Mother History of rheumatoid arthritis History of diabetes mellitus, type II Father History of stomach cancer History of cirrhosis of liver Mental health disorder Social History Housing: House Alcohol intake: current Alcohol intake frequency: holidays/special occasions only Patient Tobacco Use Status: Never used Tobacco e-Cigarette/Vaping Use: Never Used Second Hand Smoke Exposure: No service: No Current occupational status: unemployed Current occupation: Left Handed Current occupational exposures/hazards: No Cognitive needs: No Hearing needs: No Vision needs: Yes Questionnaire Medicare Wellness Checkup [age] 65-67 What gender do you identify with?: female During the past 4 weeks, how much have you been bothered by emotional problems such as feeling anxious, depressed, irritable, sad or downhearted, and blue?: moderately During the past 4 weeks, has your physical & emotional health limited your social activities with family, friends, neighbors, or groups?: not at all During the past 4 weeks, how much bodily pain have you generally had?: moderate pain During the past 4 weeks, was someone available to help you if you needed & wanted help?: yes, as much as I wanted During the past 4 weeks, what was the hardest physical activity you could do for at least 2 minutes?: moderate Can you get to places out of walking distance without help? (For eg., can you travel alone on buses, taxis or drive your car?): No Can you go shopping for groceries or clothes without someone's help?: No Can you prepare your own meals?: Yes Can you do your housework without help?: No Because of any health problems, do you need the help of another person with your personal care needs such as eating, bathing, dressing or getting around the house?: No Can you handle your own money without help?: Yes During the past 4 weeks, how would you rate your health in general?: good During the past 4 weeks how have things been going for you?: good & bad parts about equal Are you having difficulties driving your car?: yes, often Do you always fasten your seat belt when you are in a car?: yes, usually During past 4 weeks, have you been bothered by the following: never: Trouble eating well? and Problems using the telephone?, seldom: Falling or dizzy when standing up and Teeth or denture problems? and always: Sexual problems? and Tiredness or fatigue? Have you fallen 2 or more times in the past year?: Yes Are you afraid of falling?: Yes Are you a smoker?: no During the past 4 weeks, how many drinks of wine, beer, or other alcoholic beverages did you have?: no alcohol at all Do you exercise for about 20 minutes 3 or more times a week?: yes, most of the time Have you been given information to help with the following?: no: Hazards in your house that might hurt you? and no: Keeping track of your medications? How often do you have trouble taking medicines the way you have been told to take them?: I always take medicine as prescribed How confident are you that you can control & manage most of your health problems?: very confident What is your race?: White Mini Mental State Exam (MMSE) Orientation What is the (year) (season) (date) (day) (month)?: year, season, date, day and month Where are we (state) (county) (town or city) (hospital) (floor)?: state, county, town or city, hospital/clinic and floor Registration Name of 3 unrelated objects clearly and slowly, then ask patient to repeat all 3 of them. (1st repeat determines score. Make sure they can repeat all three): object 1, object 2 and object 3 Attention & Calculation (CHOOSE ONE) Spell WORLD backwards (DLROW): 5 letters Recall Ask patient to repeat the 3 items from question #3.: object 1, object 2 and object 3 Language Show patient a wristwatch & ask what it is. Repeat for pencil.: watch and pencil Ask the patient to repeat the phrase 'No ifs, ands, or buts' after you.: correct Ask the patient to 'take a piece of paper with their right hand' 'fold paper in half' 'place paper on floor': take paper in right hand, fold paper in half and place paper on floor Print the sentence 'CLOSE YOUR EYES' on a piece. If patient actually closes eyes then score.: followed written direction Give patient a blank piece of paper & ask to write a sentence. Score if it contains a noun & verb.: sentence contains subject and verb Score Score: 29 PHQ-9 Over the last 2 weeks, how often have you been bothered by any of the following problems? 1. Little interest or pleasure in doing things: more than half the days 2. Feeling down, depressed, or hopeless: more than half the days 3. Trouble falling or staying asleep, or sleeping too much: more than half the days 4. Feeling tired or having little energy: more than half the days 5. Poor appetite or overeating: not at all 6. Feeling bad about yourself - or that you are a failure or have let yourself or your family down: not at all 7. Trouble concentrating on things, such as reading the newspaper or watching television: not at all 8. Moving or speaking so slowly that other people could have noticed. Or the opposite - being so fidgety or restless that you have been moving around a lot more than usual: not at all 9. Thoughts that you would be better off or of hurting yourself in some way: not at all Total score: 8 Depression Screening Interpretation: Negative Depression Screening Done: Yes 62261 - PHQ-9 Billing: Yes Source: Developed by Drs. Hung Beckett, Jumana Woo, Jake Tom and colleagues, with an educational nalini from [employer]. Review of Systems Const All systems reviewed & are unremarkable except as noted in HPI and below Eyes Reports no additional complaints ENT Reports no additional complaints Card Reports no additional complaints Resp Reports no additional complaints GI Reports no additional complaints Reports no additional complaints Musc Reports no additional complaints Skin/Breast Reports system reviewed and no additional complaints, except as documented Physical Exam Vital Signs: Last Vital Signs Temp 98.3 F 01/16/25 08:13 Pulse 70 01/16/25 08:13 Resp 18 01/16/25 08:13 BP 128/80 01/16/25 08:13 Pulse Ox 97 01/16/25 08:13 Oxygen Delivery Method Room Air 01/16/25 08:13 BMI result Body Mass Index 37.1 Const General: no acute distress HEENT Head: Yes normal to inspection Ears: hearing grossly normal bilaterally General nose exam: Normal external nose present Face and sinus: Yes normal facial exam Mouth: Normal oral and palatal mucosa present Throat: Yes posterior oropharynx normal Eyes General: appearance normal, both eyes and all related structures Neck Neck: Yes no meningeal signs and Yes supple Resp Effort & Inspection: normal respiratory effort Auscultation: clear to auscultation bilaterally Cardio Rhythm: regular rhythm Heart sounds: S1 normal heart sound present and S2 normal heart sound present GI Inspection: Yes normal to inspection Palpation (GI): Soft to palpation Percussion: Yes normal to percussion Auscultation: normal bowel sounds Neuro General: no meningeal signs Extrem General: Yes no clubbing, cyanosis or edema Assessment & Plan Assessment & Plan (1) Lumbar pain: Code(s): M54.5 - Low back pain Plan: For chronic lower back pain obtain x-ray of lumbar spine and SI joints. Patient will be referred to physical therapy (2) Annual physical exam: Comment: According to [facility] patient needs to have abdominal hernia repaired before colonoscopy can be done 03/2024 Code(s): Z00.00 - Encounter for general adult medical examination without abnormal findings Plan: Well-balanced diet increase physical activity decrease caloric intake weight loss discussed with the patient. Patient declined mammogram. Cologuard will be ordered. [facility] recommended hernia repair before screening colonoscopy. (3) Hypothyroid: Comment: cont Levothyroxine Code(s): E03.9 - Hypothyroidism, unspecified Plan: Continue levothyroxine (4) Hyperlipidemia: Comment: diet controlled Code(s): E78.5 - Hyperlipidemia, unspecified Plan: Continue low-cholesterol (5) Abdominal wall hernia: Comment: Established surgeon, patient needs to lose 30 more lb to qualify for surgery 12/2024 Code(s): K43.9 - Ventral hernia without obstruction or gangrene Plan: Patient needs to lose 30 more lb in order to qualify for hernia repair surgery. she is established with surgeon (6) Asthma: Code(s): J45.909 - Unspecified asthma, uncomplicated Plan: Continue Symbicort Orders: Orders XR DEXA axial skeleton Today Z78.0 - Asymptomatic menopausal state XR sacroiliac joint 1-2V Today M54.50 - Low back pain, unspecified Comprehensive [place]. Panel Fast 1 Year E03.9 - Hypothyroidism, unspecified, E78.5 - Hyperlipidemia, unspecified, J45.909 - Unspecified asthma, uncomplicated Complete Blood Count Auto Diff 1 Year E03.9 - Hypothyroidism, unspecified, E78.5 - Hyperlipidemia, unspecified, J45.909 - Unspecified asthma, uncomplicated TSH reflex Free T4 1 Year E03.9 - Hypothyroidism, unspecified, E78.5 - Hyperlipidemia, unspecified, J45.909 - Unspecified asthma, uncomplicated XR lumbar spine 2-3V Today M54.5 - Low back pain PT Evaluation and Treatment Today M54.5 - Low back pain Lipid Panel 1 Year E03.9 - Hypothyroidism, unspecified, E78.5 - Hyperlipidemia, unspecified, J45.909 - Unspecified asthma, uncomplicated Vitamin D 25-OH Total 1 Year E03.9 - Hypothyroidism, unspecified, E78.5 - Hyperlipidemia, unspecified, J45.909 - Unspecified asthma, uncomplicated Referrals Cologuard Test Z12.11 - Encounter for screening for malignant neoplasm of colon, Z12.12 - Encounter for screening for malignant neoplasm of rectum Medications: Refilled levothyroxine 75 mcg PO DAILY 90 tabs 3RF Discontinued Advair HFA 115-21 mcg/actuation (fluticasone propion-salmeterol) Discontinued Reason: Doctor's Order 2 puffs inhalation BID 12 grams 3RF NS Quality Reporting (2019) Depression/Bipolar (159/160/161/177) PHQ-9: Total score: 8 Coding Level of Care Code Medicare Subsequent (G0439) Diagnoses Lumbar pain M54.5 Annual physical exam Z00.00 Hypothyroid E03.9 Hyperlipidemia E78.5 Abdominal wall hernia K43.9 Asthma J45.909 CPT Codes Advance Care Planning - Advance Care Planning discussion: On file, no changes ([id number]) Advance Care Planning - Time spent: 1-15 minutes, on File ([id number]) Additional Codes PHQ-9 - 43425 - PHQ-9 Billing: Yes ([id number]) Advance Care Planning Advance Care Planning discussion: On file, no changes Forms completed: Health Care Proxy Time spent: 1-15 minutes, on File Did not discuss due to Cultural/Spiritual beliefs: Yes
[2025-01-16 08:13] VITALS: BP 128/80; PULSE 70; RESP 18; TEMP 36.8; O2SAT 97; BMI 37.1
== END 2025-01-16 10:20 | disposition home or self-care (01) ==
LOC: HO.HMCC 07:48
PROVIDERS: PCP Internal Medicine; Visit Provider Internal Medicine
DX: Z00.00 Encounter for general adult medical examination without abnormal findings (principal); M54.50 Low back pain, unspecified; E03.9 Hypothyroidism, unspecified; E78.5 Hyperlipidemia, unspecified; K43.9 Ventral hernia without obstruction or gangrene; J45.909 Unspecified asthma, uncomplicated

== ENCOUNTER 2025-01-16 07:48 | Outpatient (REF) | payer MEDICARE, SELFPAY ==
--- NOTE | ~2025-01-16 | XR_ITS ---
EXAMINATION: XR LUMBAR SPINE 2-3 VIEWS, XR SACROILIAC JOINT 1-2 VIEWS HISTORY: M54.5 - Low back pain COMPARISON: Comparison is made with the prior examination of the lumbar spine dated 03/04/2021. FINDINGS: AP, lateral, and coned down views of the lumbar spine and 3 additional views of the bilateral sacroiliac joints are submitted. Osseous mineralization is normal. There is mild levoscoliosis. The vertebral bodies maintain normal height without evidence of fracture or spondylolisthesis. There is mild degenerative disc disease with anterior spurring. The intervertebral disc spaces are maintained. The bilateral sacroiliac joints are maintained. No erosions are seen. XR/XR sacroiliac joint 1-2V IMPRESSION: 1. Mild levoscoliosis. Mild degenerative disc disease of the lumbar spine. 2. Unremarkable examination of the bilateral sacroiliac joints. Electronically signed by: Hung Perkins MD 01/16/2025 02:59 PM EDT
--- NOTE | ~2025-01-16 | XR_ITS ---
EXAMINATION: XR LUMBAR SPINE 2-3 VIEWS, XR SACROILIAC JOINT 1-2 VIEWS HISTORY: M54.5 - Low back pain COMPARISON: Comparison is made with the prior examination of the lumbar spine dated 03/04/2021. FINDINGS: AP, lateral, and coned down views of the lumbar spine and 3 additional views of the bilateral sacroiliac joints are submitted. Osseous mineralization is normal. There is mild levoscoliosis. The vertebral bodies maintain normal height without evidence of fracture or spondylolisthesis. There is mild degenerative disc disease with anterior spurring. The intervertebral disc spaces are maintained. The bilateral sacroiliac joints are maintained. No erosions are seen. XR/XR lumbar spine 2-3V IMPRESSION: 1. Mild levoscoliosis. Mild degenerative disc disease of the lumbar spine. 2. Unremarkable examination of the bilateral sacroiliac joints. Electronically signed by: Hung Perkins MD 01/16/2025 02:59 PM EDT
== END 2025-01-16 07:49 | disposition home or self-care (01) ==
LOC: HO.HMGCX 07:48
PROVIDERS: PCP Internal Medicine; Visit Provider Internal Medicine
DX: Z00.00 Encounter for general adult medical examination without abnormal findings (principal); M54.50 Low back pain, unspecified; E03.9 Hypothyroidism, unspecified; E78.5 Hyperlipidemia, unspecified; K43.9 Ventral hernia without obstruction or gangrene; J45.909 Unspecified asthma, uncomplicated; Z79.899 Other long term (current) drug therapy
CPT/HCPCS: 72100; 72200; 96127

== ENCOUNTER → 2025-01-16 13:13 | Outpatient (BNV) | payer MEDICARE, SELFPAY | PROVIDERS: PCP Internal Medicine; Visit Provider Radiology Diagnostic Radiology | DX: M54.50 Low back pain, unspecified (principal) | CPT/HCPCS: 72100; 72200 ==

== ENCOUNTER 2025-03-04 14:20 | Outpatient (REF) | payer MEDICARE, SELFPAY ==
--- NOTE | ~2025-03-04 | MM_ITS ---
EXAMINATION: DXA BONE DENSITY AXIAL HISTORY: Z78.0 - Asymptomatic menopausal state TECHNIQUE: Go Dish Dual energy absorptiometry (DEXA) of the lumbar spine, total left hip, and femoral neck was performed. COMPARISON: There are no prior studies for comparison. FINDINGS: The bone mineral density of the lumbar spine is 1.319 g/cm2, corresponding to a T-score of 1.2, and a Z-score of 1.3. This is indicative of normal bone mineral density. The bone mineral density of the left total hip is 1.153 g/cm2, corresponding to a T-score of 1.2, and a Z-score of 1.3. This is indicative of normal bone mineral density. The bone mineral density of the left femoral neck is 1.169 g/cm2, corresponding to a T-score of 0.9, and a Z-score of 1.5. This is indicative of normal bone mineral density. FRACTURE RISK: The FRAX index suggests a risk of major osteoporotic fracture of 5.1%, and of hip fracture 0.1%. MM/XR DEXA axial skeleton IMPRESSION: Based on bone mineral density, and according to World Health Organization (WHO) criteria, the diagnosis is consistent with normal bone mineral density. Statistically, 68% of repeat scans fall within 1 SD (+/- 0.010 g/cm2 for AP spine L1-L4) and 1 SD (+/- 0.012 g/cm2 for femur total) FRAX is a trademark of the [employer] [place] [employer] Metabolic Bone Disease, a World Health Organization (WHO) Collaborating Center. Electronically signed by: Hung Perkins MD 03/04/2025 03:07 PM EDT
--- OUTSIDE RECORDS SUMMARY | 2025-03-04 15:12 | XMS_ITS | Data Portability ---
Author Organization [place] - [facility],, CONCEPCION CARRERA MD Address [address] [place] [address] Care Team Providers Care Tea Taster Name Role Phone ARANZA CRESPO Primary Care Provider Assessment No assessment recorded. Plan of Treatment Reminders Order Date Submit Date Provider Last Modified By Organization Details Last Modified Time Details Appointments None recorded. Lab pap test, thinprep, cervical 2016 017 [facility], Cytopathology Service, [address] [facility], [place], [address], 7 12:28:01 wet mount, vaginal 2016 017 [email or web address] 1 In-Office Order, Internal Use Only DO Not Attach Compendium DO Not Attach Compendium, Do Not Delete/merge, [id number] 7 16:22:09 fecal occult blood, stool 2016 017 [email or web address] 1 In-Office Order, Internal Use Only DO Not Attach Compendium DO Not Attach Compendium, Do Not Delete/merge, [id number] 7 16:21:41 urinalysi s, dipstick 2015 016 DBA_PATCH_ [id number] In-Office Order, Internal Use Only DO Not Attach Compendium DO Not Attach Compendium, Do Not Delete/merge, [id number] 6 04:20:31 wet mount, vaginal 2015 016 DBA_PATCH_ [id number] In-Office Order, Internal Use Only DO Not Attach Compendium DO Not Attach Compendium, Do Not Delete/merge, [id number] 6 04:20:31 pap, LB, vaginal 2015 016 [facility], Cytopathology Service, [address] [place], [address], 6 11:46:12 fecal occult blood, stool 2015 016 [email or web address] 1 In-Office Order, Internal Use Only DO Not Attach Compendium DO Not Attach Compendium, Do Not Delete/merge, [id number] 6 15:46:50 wet mount, vaginal 2014 015 GABO In-Office Order, Internal Use Only DO Not Attach Compendium DO Not Attach Compendium, Do Not Delete/merge, [id number] 5 15:09:09 Referral None recorded. Procedures None recorded. Surgeries None recorded. Imaging MAMMO, screening , digital, bilateral 2016 017 [facility], [address] [facility], [place], [address], 8 08:24:00 MAMMO, screening , digital, bilateral 2015 016 [facility] [address] [place], [address], 7 09:06:47 Medication Orders Estrace 0.01% (0.1 mg/gram) vaginal cream 2016 017 [email or web address] 1 [facility], [address] [place], [address], 7 16:21:41 fluconazo le 150 mg tablet 2016 017 INTERFACE [facility], [address] [place], [address], 7 16:21:56 fluconazo le 150 mg tablet 2015 016 [email or web address] [facility], [address] [place], [address], 7 15:37:10 Estrace 0.01% (0.1 mg/gram) vaginal cream 2014 015 smacmillan 1 [facility], [address] [place], [address], 5 15:07:27 fluconazo le 150 mg tablet 2014 015 [email or web address] [facility], [address] [place], [address], 7 15:37:10 Estrace 0.01% (0.1 mg/gram) vaginal cream 2014 015 smacmillan 1 [facility], [address] [place], [address], 5 15:07:31 Patient TargetsNo targets recorded. Patient Instructions Encounter Date Encounter Id Patient Instructions Last Modified By Organization Details Last Modified Time 04/24/2015 [id number] atrophic vaginit is: care instructions [email or web address] Not available 04/24/2015 15:40:54 She is here as a new patient for a complaint of dyspareunia and vaginal dryness. She had a LAVHRSO [id number] for fibroids. She had surgery at age 23 for cysts on the ovary 25 pounds of cysts and LSO was done. She was taking ERT for 6 months after surgery, but then was advised to stop. She has not had any hormones since 2004, 11 years. 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 Flores in 08/2014. [...] see how she is doing and discuss senior care usage of the E2 cram. RX and 2 free samples given, Estrace cream. Face to face discussion 45 minutes Not available 04/24/2015 15:07:31 07/17/2015 [id number] vaginal yeast infection: care instructions [email or web address] Not available 07/17/2015 15:12:14 She is here for discussion of her atrophic vaginitis. She notes a good improvement in her dryness symptoms since using the E2 vaginal cream, she elects to continue. She has noted some irritation in the past week and wonders if it is a yeast infection. She does indeed have a yeast infection, rx diflucan given. She also requests a refill on the E2 cream. Not available 07/17/2015 15:07:27 10/12/2015 [id number] She is here for annual exam, is [...] in detail. Not available 10/12/2015 15:46:50 04/15/2016 [id number] vaginal yeast infection: care instructions [id number] Not available 08/13/2016 04:20:31 She went to [facility] and has been on an antibiotic for 4 days, and complains of vaginal burning to the point it hurts to sit. she has a monilia vaginitis. The antibiotics are finished today. Urine dip is negative. RX Diflucan, call if symptoms persist or worsen, possible side effects discussed. Not available 04/15/2016 14:10:00 11/18/2016 [id number] atrophic vaginit is: care instructions Not available [...] standardized exercise regimen, such as that at [employer], and she is given literature for this. We discussed a referral to a disassembler product and/or weight management associate. All questions were answered. She mohinder think [...] Abnormal Flag Note LastModifiedBy Organization Detail LastModifiedTime 11/19/1911/18/2016 ronnie ulloa Clue Cells negati ve Not Available In-Office Order Internal Use Only DO Not Attach Compendium DO Not Attach Compendium, Do Not Delete/merge, [id number] 11/18/2016 16:21:40 11/19/19 17 11/18/2016 ronnie ulloa Trichomonas negati ve Not Available In-Office Order Internal Use Only DO Not Attach Compendium DO Not Attach Compendium, Do Not Delete/merge, [id number] 11/18/2016 16:21:40 11/19/19 17 11/18/2016 wet mount , vagin al Hyphae positi ve Not Available In-Office Order Internal Use Only DO Not Attach Compendium DO Not Attach Compendium, Do Not Delete/merge, [id number] 11/18/2016 16:21:40 11/19/19 17 11/18/2016 wet mount , vagin al atrophic epithelium positi ve Not Available In-Office Order Internal Use Only DO Not Attach Compendium DO Not Attach Compendium, Do Not Delete/merge, [facility] 11/18/2016 16:21:40 11/19/19 17 11/18/2016 fecal occul t blood , stool Occult Blood negati ve Not Available In-Office Order Internal Use Only DO Not Attach Compendium DO Not Attach Compendium, Do Not Delete/merge, [facility] 11/18/2016 15:45:14 04/15/20 16 04/15/2016 wet mount , vagin al Clue Cells negati ve Not Available In-Office Order Internal Use Only DO Not Attach Compendium DO Not Attach Compendium, Do Not Delete/merge, [facility] 04/15/2016 13:46:05 04/15/20 16 04/15/2016 wet mount , vagin al Trichomonas negati ve Not Available In-Office Order Internal Use Only DO Not Attach Compendium DO Not Attach Compendium, Do Not Delete/merge, [facility] 04/15/2016 13:46:05 04/15/20 16 04/15/2016 wet mount , vagin al Hyphae positi ve Not Available In-Office Order Internal Use Only DO Not Attach Compendium DO Not Attach Compendium, Do Not Delete/merge, [facility] 04/15/2016 13:46:05 04/15/20 16 04/15/2016 wet mount , vagin al atrophic epithelium positi ve Not Available In-Office Order Internal Use Only DO Not Attach Compendium DO Not Attach Compendium, Do Not Delete/merge, [facility] 04/15/2016 13:46:05 04/15/20 16 04/15/2016 urina lysis , dipst ick GLU Negati ve Not Available In-Office Order Internal Use Only DO Not Attach Compendium DO Not Attach Compendium, Do Not Delete/merge, [facility] 04/15/2016 13:32:33 04/15/20 16 04/15/2016 urina lysis , dipst ick RAJEEV Negati ve Not Available In-Office Order Internal Use Only DO Not Attach Compendium DO Not Attach Compendium, Do Not Delete/merge, [facility] 04/15/2016 13:32:33 04/15/20 16 04/15/2016 urina lysis , dipst ick KET Large (160) Not Available In-Office Order Internal Use Only DO Not Attach Compendium DO Not Attach Compendium, Do Not Delete/merge, [facility] 04/15/2016 13:32:33 04/15/20 16 04/15/2016 urina lysis , dipst ick SG 1.020 Not Available In-Office Order Internal Use Only DO Not Attach Compendium DO Not Attach Compendium, Do Not Delete/merge, [facility] 04/15/2016 13:32:33 04/15/2004/15/2016 urina lysis , dipst ick BLO Hemoly zed : Trace Not Available In-Office Order Internal Use Only DO Not Attach Compendium DO Not Attach Compendium, Do Not Delete/merge, [facility] 04/15/2016 13:32:33 04/15/2004/15/2016 urina lysis , dipst ick pH 7.0 Not Available In-Office Order Internal Use Only DO Not Attach Compendium DO Not Attach Compendium, Do Not Delete/merge, [facility] 04/15/2016 13:32:33 04/15/20 16 04/15/2016 urina lysis , dipst ick PRO Negati ve Not Available In-Office Order Internal Use Only DO Not Attach Compendium DO Not Attach Compendium, Do Not Delete/merge, [facility] 04/15/2016 13:32:33 04/15/20 16 04/15/2016 urina lysis , dipst ick URO 0.2 E.U. / dl Not Available In-Office Order Internal Use Only DO Not Attach Compendium DO Not Attach Compendium, Do Not Delete/merge, [facility] 04/15/2016 13:32:33 04/15/20 16 04/15/2016 urina lysis , dipst ick NIT negati ve Not Available In-Office Order Internal Use Only DO Not Attach Compendium DO Not Attach Compendium, Do Not Delete/merge, [id number] 04/15/2016 13:32:33 04/15/20 16 04/15/2016 urina lysis , dipst ick AGUEDA Negati ve Not Available In-Office Order Internal Use Only DO Not Attach Compendium DO Not Attach Compendium, Do Not Delete/merge, [id number] 04/15/2016 13:32:33 10/12/19 16 10/12/2015 fecal occul t blood , stool Occult Blood negati ve Not Available In-Office Order Internal Use Only DO Not Attach Compendium DO Not Attach Compendium, Do Not Delete/merge, [id number] 10/12/2015 15:35:52 07/17/20 15 07/17/2015 wet mount , vagin al Clue Cells negati ve Not Available In-Office Order Internal Use Only DO Not Attach Compendium DO Not Attach Compendium, Do Not Delete/merge, [id number] 07/17/2015 14:46:36 07/17/20 15 07/17/2015 wet mount , vagin al Trichomonas negati ve Not Available In-Office Order Internal Use Only DO Not Attach Compendium DO Not Attach Compendium, Do Not Delete/merge, [id number] 07/17/2015 14:46:36 07/17/20 15 07/17/2015 wet mount , vagin al Hyphae positi ve Not Available In-Office Order Internal Use Only DO Not Attach Compendium DO Not Attach Compendium, Do Not Delete/merge, [id number] 07/17/2015 14:46:36 07/17/20 15 07/17/2015 wet mount , vagin al atrophic epithelium positi ve Not Available In-Office Order Internal Use Only DO Not Attach Compendium DO Not Attach Compendium, Do Not Delete/merge, [id number] 07/17/2015 14:46:36 10/12/19 16 10/12/2015 pap, LB [id number] ThinP rep Pap, Image d: NEGAT YOVANI FOR SQUAM OUS INTRA EPITH ELIAL LESIO N AND RACHAEL WHALEY . Ileana Martinez ams, CT( CP) (Case elect seble morrow coretta d 10 14 2015) ADEQU ACY: Satis facto ry. SOURC E: ThinP rep Pap HPV IF ASCUS , Vagin al, Image d CLINI LENNY INFOR MATIO N: HPV If Diagn osis of ASCUS . hyste recto my * Cytop athol ogy servi jennifer provi ded by [facility] Patho Michelle Garcia at the above addre ss. Not Available [facility], Cytopathology Service [address] [place], [address], 10/14/2015 11:46:12 11/19/19 17 11/18/2016 pap, LB [id number] ThinP rep Pap, Image d: NEGAT YOVANI FOR SQUAM OUS INTRA EPITH ELIAL LESIO N AND MALIG JUDD . Kate Partida a, CT( CP) (Case [...] . LAST PAP MENOP AUSE Not Available [facility], Cytopathology Service [address] [place], [address], 11/21/2016 12:28:01 Result Notes None recorded. Problems Name Problem SNOMED Code Status Onset Date Resolution Date Notes Provider Name and Address Organization Details Recorded Time Dyspareunia 02330487 Active Concepcion Carrera MD [address], [place], [address], [place] - [facility], 6 15:45:26 Complicated ovarian cyst Active 2002, 25 pounds of contents , benign Concepcion Carrera MD [address], [place], [address], [place] - [facility], 6 15:45:26 Atrophic vaginitis 12406251 Active Concepcion Carrera MD [address], [place], [address], [place] - [facility], 6 15:45:26 Diverticulit is 419876733 Active had surgery 08/2014 Concepcion Carrera MD [address], [place], [address], [place] - [facility], 6 15:45:26 Candidal vulvovaginit is 27520501 Active Concepcion Carrera MD [address], [place], [address], [place] [facility], 6 15:45:26 Problem Notes None recorded. Procedures Surgical History Date Name Laterality Status Provider Name and Address Organization Details Recorded Time 03/28/20 16 Other completed Elvia Mecelijahwor [place] - [facility], 11/18/2016 15:43:23 08/28/19 15 Cholecystectomy completed Elvia Mecisabellor [place] - [facility], 04/24/2015 14:09:23 08/28/19 15 Other completed Concepcion Carrera MD [address], [place], [address], [place] [facility], 07/17/2015 14:43:51 08/28/19 12 Other completed Elvia Meczywor [place] - [facility], 04/24/2015 14:09:23 08/28/19 11 Other completed Elvia Meczioanawor [place] - [facility], 04/24/2015 14:09:23 08/28/19 08 Other completed Elvia Meczywor [place] - [facility], 10/12/2015 15:34:20 08/28/19 03 Total Abdominal Hysterectomy completed Concepcion Carrera MD [address], [place], [address], [place] - [facility], 04/24/2015 14:41:55 08/28/18 88 Removal of ovary/tube(s) completed Concepcion Carrera MD [address], [place], [address], [place] [facility], 04/24/2015 14:41:55 Imaging Results None recorded. Procedure Notes None recorded. Medical Equipment None Reported. Allergies Allergen ID Allergen Name Allergen Category Reaction Reaction Severity Criticality Documentation Date Start Date Code Code System Note Provider Name and Address Organization Details Recorded Time Product containin g penicilli n (product) medicatio n rash Not available Not available 04/24/2015 73584 8001 SNOMED ElviaJULISA Mauro in [facility], 5 14:09:24 Requip medicatio n rash Not available Not available 04/24/2015 14889 1 RxNorm JULISA Ross in [facility], 5 14:09:24 Medications Name Sig Start Date Stop Date Status Note LastModified by Organization Details LastModified Time nitrofurant oin monohydrate 100 mg caps active Not Available Not Available Not Available oxycodone/a cetaminophe n 5-325 mg tabs active Not Available Not Available Not Available tizanidine hcl 4 mg tabs active Not Available Not Available Not Available flovent hfa 220 mcg/act aero active Not Available Not Available Not Available tobramycin sulfate 0.3 % soln 04/15 completed Not Available Not Available Not Available estrace 0.1 mg/gm crea active Not Available [...] Available Vitals Date Recorded Body height Body weight Body mass index (BMI) Heart rate Systolic And Diastolic Provider Name and Address Organization Details Last Updated DateTime 10/12/2015 165.1 cm 236708.5 69695 g 37.6 kg/m2 64 /min 116/72 mm[Hg] Elvia Almanzar [place] [facility], 10/12/2015 15:34:21 Date Recorded Body height Body weight Body mass index (BMI) Heart rate Systolic And Diastolic Provider Name and Address Organization Details Last Updated DateTime 11/18/2016 165.1 cm 346698.9 4 g 37 kg/m2 71 /min 126/74 mm[Hg] Elvia De La Vega in [facility], 11/18/2016 15:41:37 Date Recorded Body height Heart rate Body weight Body mass index (BMI) Body temperature Systolic And Diastolic Provider Name and Address Organization Details Last Updated DateTime 6 165.1 cm 59 /min 08755.7 3 g 36.4 kg/m2 98.2 [degF] 115/61 mm[Hg] Andree De La Vega in [facility], 6 13:31:14 Date Recorded Body height Body mass index (BMI) Heart rate Body weight Systolic And Diastolic Provider Name and Address Organization Details Last Updated DateTime 04/24/2015 165.1 cm 38.5 kg/m2 64 /min 393345.2 90380 g 111/59 mm[Hg] Elvia De La Vega in [facility], 04/24/2015 14:09:24 Date Recorded Body height Body mass index (BMI) Body weight Provider Name and Address Organization Details Last Updated DateTime 07/17/2015 165.1 cm 38.4 kg/m2 505121.3160 22 g Andree De La Vega in [facility], 07/17/2015 14:37:37 Date Recorded Heart rate Systolic And Diastolic Provider Name and Address Organization Details Last Updated DateTime 07/17/2015 62 /min 122/65 mm[Hg] Elvia Torrez sociates in [facility], 07/17/2015 14:48:54 Social History Question Answer Notes LastModified by Organizat ion Details LastModified Time Tobacco Smoking Status Never Smoker Not Available [facility] 06/30/2020 03:19:40 What Is Your Level Of Caffeine Consumption? Occasional [id number] Information not available 06/30/2020 What Type Of Diet Are You Following? REGULAR [id number] Information not available 06/30/2020 Which Illicit Or Recreational Drugs Have You Used? No [id number] Information not available 06/30/2020 Do You Reside In Or Have You Traveled To An Area Where Ebola Virus Transmission Is Active? No [id number] Information not available 06/30/2020 Education 12 [email or web address] Information no t available 04/24/2015 How Many Days In The Past Year Have You Had A Heavy Drinking Consumption (4+ Female, 5+ Male)? 0 Information no t available 04/15/2016 High Number Of Sexual Partners No Information not available 04/15/2016 To Which Gender Do You Self-identify? Female Information not available 04/15/2016 Marital Status access hospital Informatio n not available 04/24/2015 Are You Sexually Active? Yes [id number] Information not available 06/30/2020 How Much Tobacco Do You Smoke? No [id number] Information not available 06/30/2020 General Stress Level Medium access hospital Information not available 10/12/2015 Have You Recently (within The Last 12 Weeks, Or During A Current ) Traveled To Or Lived In A Zika-affected Area? No Information not available 04/15/2016 Sex: Unknown Functional Status Question Answer Note LastModified by Organizat ion Details LastModified Time What is your level of alcohol consumption? 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 Occasional [id number] Information not available 06/30/2020 Mental Status None [...] SNOMED-CT Code Diagnosis ICD10 Code Diagnosis Note [id number] MD CONCEPCION Ortiz MD [address] [place] [address], [address] [place] [address] 04/24/2015 13:33:01 04/24/2015 15:51:14 Dyspareunia 21980787 Atrophic vaginitis 11385855 28101 MD CONCEPCION Ortiz MD [address] [place] [address] 07/17/2015 14:32:27 07/17/2015 15:35:48 Candidal vulvovaginitis 49721191 B37.3 Atrophic vaginitis 88722 000 N95.2 06799 MD CONCEPCION Ortiz MD [address] [place] [address] 10/12/2015 15:24:49 10/12/2015 16:05:10 Specialized medical examination 29331007 Z01.419 Screening for malignant neoplasm of rectum 933423968 Z12.12 Screening mammography 24 504060 Z12.31 90031 MD CONCEPCION Ortiz MD [address] [place] [address] [place] [address] 04/15/2016 13:20:40 04/15/2016 14:43:12 Acute lower urinary tract infection 310858480 R30.0 Candidal vulvovaginitis 38355774 B37.3 09067 MD CONCEPCION Ortiz MD [address] [place], [place] [address]E [address] [place] [address] 11/18/2016 15:35:57 11/21/2016 08:41:06 Specialized medical examination 53067000 Z01.419 Screening for malignant neoplasm of rectum 509828923 Z12.12 Screening mammography 24 524824 Z12.31 Atrophic vaginitis 25634 000 N95.2 Candidal vulvovaginitis 30535984 B37.3 Health Concerns Section Related Observation LastModified by Organization Detai ls LastModified Time None Recorded Concern Status LastModified by Organization Details LastModified Time None Recorded Advance Directives Directive None Recorded Payers Insurance Date Sequence Insurance Name Policy Number Policy Cha Covered Member ID Cha Member ID Guarantor Name 11/21/[address] [place] [address] [id number] Augusta Daudelin [id number] Augusta Daudelin Notes Date Note Type Note Provider Name and Address Organization Details Recorded Time 04/15/2016 text/html She went to [facility] and has been on an antibiotic for 4 days, and complains of vaginal burning to the point it hurts to sit. Concepcion Carrera MD [address] [facility],[address], [place], [address], [place] - [facility], 04/15/2016 14:10:23 11/18/2016 text/html She is here for annual exam, is doing well. She notes a good improvement with the E2 vaginal cream. She is using mucinex and antibiotics for a sinus infection now. Concepcion Carrera MD [address], [place], [address], [place] [facility], 11/18/2016 16:23:34 OBGyn Episode No OBEpisode recorded.
== END 2025-03-04 14:21 | disposition home or self-care (01) ==
LOC: HO.MAMMO 14:20
PROVIDERS: PCP Internal Medicine; Visit Provider Internal Medicine
DX: Z13.820 Encounter for screening for osteoporosis (principal); Z78.0 Asymptomatic menopausal state
CPT/HCPCS: 77080

== ENCOUNTER → 2025-03-04 14:23 | Outpatient (BNV) | payer MEDICARE, SELFPAY | PROVIDERS: PCP Internal Medicine; Visit Provider Radiology Diagnostic Radiology | DX: E28.39 Other primary ovarian failure (principal) | CPT/HCPCS: 77080 ==

== ENCOUNTER 2025-03-31 06:04 | Outpatient (REF) | payer MEDICARE, SELFPAY ==
[2025-03-31 12:36] LABS: Free T4 (Free Thyroxine) 0.99 ng/dL (0.71-1.85)
== END 2025-03-31 06:05 | disposition home or self-care (01) ==
LOC: HO.HMGCLDS 06:04
PROVIDERS: PCP Internal Medicine; Visit Provider Internal Medicine
DX: E03.9 Hypothyroidism, unspecified (principal)
CPT/HCPCS: 36415; 84439; 84443

== ENCOUNTER 2025-04-03 14:00 | Outpatient (RCR) | payer MEDICARE, SELFPAY ==
--- NOTE | 2025-03-05 15:34 | MHC.PT.EP ---
[facility] [place] [facility] [place] [facility] [place] Office [address] Tyree Sharp [address] [phone] F: [phone] F: [phone] F: [phone] F: [phone] Physical Therapy Plan of Care Date of Evaluation: 03/05/25 Date of Surgery: n/a Diagnosis: low back pain Assessment: Patient is a 59 year old female presenting to PT with complaints of pain in her low back. Pt reports onset of pain began June 2024 due to a fall. She presents today with impairments in pain, lumbar ROM, hip strength, tenderness to palpation. Pt's current occupation is disabled, with baseline physical activities including ambulating, ADLs, bending, lifting. Pt expresses fdc goal of reducing pain, and is motivated to work towards this in PT. Clinical presentation today is most consistent with signs and sx associated with low back pain and pt will benefit from skilled PT 2 week x 4 weeks to address the following problems and impairments noted upon evaluation: pain, lumbar ROM, hip strength, tenderness to palpation. These problems limit the patient with the following functional activities: ambulating, ADLs, bending, lifting. The prescribed treatment plan of care is medically necessary. Co-morbidities of depression, fibromyalgia, hx multiple hernia repairs as well as currently having a huge ventral hernia in need of repair were identified and taken into considerations of plan of care. Pt was educated on HEP, role of PT, prognosis, POC. Frequency and Duration: The patient will be seen 2 x week x 4 weeks Short Term Goals: Pt will demonstrate pain at rest <3/10 in 2 weeks. Pt will demonstrate proper breathing techniques with strengthening exercises in 2 weeks. Pt will demonstrate improved hip MMT strength by 1/3 grade in 2 weeks. Residential Goals: Pt will demonstrate improved Bipin score by 10% in 4 weeks for improved functional mobility. Pt will demonstrate ability to complete ADLs with min to no pain in 4 weeks for return to PLOF. Pt will demonstrate ability to ambulate with min to no pain in 4 weeks for return to PLOF. Treatment Plan: Modalities to reduce pain, spasms and effusion. Manual therapy to restore motion and function. Therapeutic exercise to improve strength and flexibility. Neuromuscular re-education for posture and balance. Therapeutic activities to return to functional activities of daily living. Electronically signed by: Shirley Kelly, PT, DPT, ATC Please sign and return to therapist. Thank you for your referral.
--- NOTE | 2025-04-03 14:43 | MHC.PT.DC ---
[facility] [place] Office [place] Office [place] [facility] [address] Tyree Sharp [address] [phone] F: [phone] F: [phone] F: [phone] F: [phone] Physical Therapy Discharge Report Diagnosis: low back pain Date of Surgery: n/a Date of Evaluation: 03/05/25 Date of Discharge: 04/03/25 Treatments to Date: 8 Cancellations to Date: 0 No Shows to Date: 0 Discharge Status: Independent with HEP Recommend MD Follow-up Discharge Summary: 04/03/2025: Pt has unfortunately made little to no progress since start of care. She is still having pain and also dealing with quite a bit of limitations due to her hernia. She has also been limited with her tolerance in PT due to the hernia. At this time max benefits of PT have been provided and skilled PT is no longer indicated due to lack of overall progress. I recommend she continue to follow up with her doctors for her hernia and she can also continue with her HEP as tolerated as well. Electronically signed by: Shirley Kelly, PT, DPT, ATC Please sign and return to therapist. Thank you for your referral.
== END 2025-04-03 14:43 | disposition home or self-care (01) ==
LOC: HO.PTCHIC 14:00
PROVIDERS: PCP Internal Medicine; Visit Provider Internal Medicine
DX: M54.50 Low back pain, unspecified (principal)
CPT/HCPCS: 97110; 97140; 97162

== ENCOUNTER 2025-04-11 13:32 | Outpatient (AMB) | payer MEDICARE, SELFPAY ==
--- NOTE | 2025-04-11 13:34 | MHC.OFFVIS ---
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 The back pain began in June of the previous year following a fall [facility] due to a slippery floor, where she fell backward onto her tailbone on the right side. Initially, she experienced difficulty walking and applied ice and heat at home, which provided minimal relief. The pain is described as stabbing and burning, with occasional shooting and aching sensations, primarily located on the right side of the lower back and radiating to the right leg, but not below the knee. The pain is exacerbated by bending, lifting, walking, prolonged sitting, changing positions and is rated as a constant 6/10 in severity. The patient has attempted various pain management strategies, including physical therapy, which was discontinued after 8 sessions due to lack of progress. She has also tried [id number] medications such as Pamprin, Tylenol, and Aleve, with Pamprin providing some relief. The patient has a history of fibromyalgia, for which she takes Pamprin and Tylenol. She also has a history of anxiety and depression, previously managed with talk therapy, and multiple surgeries including gallbladder removal, varicose vein stripping, foot surgery, laparoscopic gastric banding, hysterectomy, and oophorectomy. - Onset: Began in June 2024 after a fall at [facility] - Quality: Stabbing, burning, throbbing, sharp, pinching, pulling, hurting, tight, radiating, occasional shooting and aching - Location: Right side of lower back, radiating to right leg, not below the knee - Exacerbating factors: Bending, lifting, walking, prolonged sitting, changing positions - Severity: Constant, rated 6/10 - Affect: Anxiety and depression, previously managed with talk therapy - Analgesia: Pamprin provides some relief; Tylenol and Aleve were ineffective - Activities of Daily Living: Pain affects ability to bend, lift, walk, and sit for prolonged periods Oswestry Low Back Pain Disability Score=28 PFSH Medical History Asthma Hyperglycemia Lumbar pain Shoulder pain, bilateral Vertigo (~12/21/23) Obesity Depression Annual physical exam Hypothyroid Hyperlipidemia Abdominal wall hernia Fibromyalgia Neck pain Postoperative abdominal hernia Chronic asthma History of mammogram Surgical History History of cholecystectomy (03/10/15) History of varicose vein stripping (01/2016) History of foot surgery (2011) History of removal of laparoscopic gastric banding device (2010) History of hernia repair (2017) Hx of laparoscopic gastric banding (07/2008) History of total hysterectomy (08/2002) H/O oophorectomy H/O: hysterectomy (1987) H/O colonoscopy Family History Mother History of rheumatoid arthritis History of diabetes mellitus, type II Father History of stomach cancer History of cirrhosis of liver Mental health disorder Social History Housing: House Alcohol intake: current Alcohol intake frequency: holidays/special occasions only Patient Tobacco Use Status: Never used Tobacco e-Cigarette/Vaping Use: Never Used Second Hand Smoke Exposure: No service: No Current occupational status: unemployed Current occupation: Left Handed Current occupational exposures/hazards: No Cognitive needs: No Hearing needs: No Vision needs: Yes Review of Systems Const Details: - Musculoskeletal: Reports back pain radiating to the right buttock, right leg, not below the knee - Neurological: Reports stabbing, burning, occasional shooting and aching pain; denies bladder or bowel dysfunction, saddle anesthesia, weakness or foot drop - Psychological: Reports anxiety and depression, previously managed with talk therapy All systems reviewed & are unremarkable except as noted in HPI and below Physical Exam Vital Signs: Last Vital Signs Pulse 61 04/11/25 13:44 BP 182/88 H 04/11/25 13:44 Pulse Ox 99 04/11/25 13:44 Oxygen Delivery Method Room Air 04/11/25 13:44 BMI result Body Mass Index 36.7 General: Appears afebrile. Alert and oriented. Mood and affect appropriate. Follows and participates in conversation appropriately. Respiratory effort is unlabored. No cough. Able to transition from sit to stand unassisted. Ambulates with bilaterally normal heel strike and toe off. General: Yes no CVA tenderness Back/Spine/Pelvis Other: Limited lumbar ROM due to pain. Lumbar flexion and extension reproduces mild to moderate pain. Demonstrates 5/5 strength of quadriceps bilaterally as well as flexion/dorsiflexion of bilateral feet against resistance. 2+ pedal pulses bilaterally. Straight leg rise with dorsiflexion negative bilaterally. +2 patellar and +1 achilles reflexes bilaterally. Facet loading test positive bilaterally. Aimee sign, Clemente?s, Gaenslen, Pelvic compression and Stinchfield tests are positive on the right. No groin pain with I/E hip rotations. Valsalva maneuver negative. Back: no CVA tenderness Cervical Spine: cervical ROM normal and No Cervical spine tenderness Thoracic/Lumbar Spine: thoracic and lumbar spine normal to inspection, No Thoracic/lumbar spine scar(s), Lasegue's sign negative, straight leg raise negative bilaterally, pain with thoraco-lumbar ROM, paraspinal muscle tenderness, thoraco-lumbar ROM limited, No thoracic spinal tenderness and lumbar spinal tenderness (L4-S1) Pelvis: buttock tenderness on the right Sacroiliac joints: on the right tender to palpation and on the left nontender Extrem General: Yes capillary refill normal, Yes no clubbing, cyanosis or edema and Yes no calf tenderness Results Reviewed Results Reviewed: XR LUMBAR SPINE 2-3 VIEWS, XR SACROILIAC JOINT 1-2 VIEWS 01/16/25 HISTORY: M54.5 - Low back pain COMPARISON: Comparison is made with the prior examination of the lumbar spine dated 03/04/2021. FINDINGS: AP, lateral, and coned down views of the lumbar spine and 3 additional views of the bilateral sacroiliac joints are submitted. Osseous mineralization is normal. There is mild levoscoliosis. The vertebral bodies maintain normal height without evidence of fracture or spondylolisthesis. There is mild degenerative disc disease with anterior spurring. The intervertebral disc spaces are maintained. The bilateral sacroiliac joints are maintained. No erosions are seen. IMPRESSION: 1. Mild levoscoliosis. Mild degenerative disc disease of the lumbar spine. 2. Unremarkable examination of the bilateral sacroiliac joints. Assessment & Plan Assessment & Plan (1) Lower back pain: Code(s): M54.50 - Low back pain, unspecified Category: Medical (2) Fibromyalgia: Code(s): M79.7 - Fibromyalgia Category: Medical (3) Sacroiliac joint pain: Code(s): M53.3 - Sacrococcygeal disorders, not elsewhere classified Category: Medical (4) Lumbosacral spondylosis: Code(s): M47.817 - Spondylosis without myelopathy or radiculopathy, lumbosacral region Category: Medical Plan Schedule Right Therapeutic Sacroiliac Joint Injection with local and fluoroscopy. Expectations, risks and benefits were reviewed. Patient is aware she will be contacted to schedule this procedure. If no significant pain relief, will consider lumbar spine MRI for radicular symptoms and lumbar MBBs to address axial low back pain. Continue Tylenol, Ibuprofen, heat therapy, activity modification, weight loss, good posture and adequate hydration. All questions and concerns have been answered and patient agreed with the treatment plan. Follow up after injection and sooner as needed. Patient was informed and verbally consented to the use of an ambient scribe for clinic note documentation during this visit. Coding Level of Care Code New Pt Level 4 (98154) Diagnoses Lower back pain M54.50 Fibromyalgia M79.7 Sacroiliac joint pain M53.3 Lumbosacral spondylosis M47.817
--- OUTSIDE RECORDS SUMMARY | 2025-04-11 13:34 | XMS_ITS ---
Author Name [facility] Organization Unknown Care Team Organization Name Specialty Phone Email Start Date End Da te [facility] Termed, PROVIDER Primary Care 07/05/202203/28
[2025-04-11 13:44] VITALS: BP 182/88; PULSE 61; O2SAT 99; BMI 36.7
== END 2025-04-11 14:18 | disposition home or self-care (01) ==
LOC: HO.PMC 13:33
PROVIDERS: PCP Internal Medicine; Referring Provider Internal Medicine; Visit Provider Nurse Practitioner Family
DX: M54.50 Low back pain, unspecified (principal); M79.7 Fibromyalgia; M53.3 Sacrococcygeal disorders, not elsewhere classified; M47.817 Spondylosis without myelopathy or radiculopathy, lumbosacral region
CPT/HCPCS: 99204

== ENCOUNTER → 2025-04-11 13:32 | Outpatient (BNVA) | payer MEDICARE, SELFPAY | PROVIDERS: PCP Internal Medicine; Referring Provider Internal Medicine; Visit Provider Nurse Practitioner Family | DX: M54.50 Low back pain, unspecified (principal); M79.7 Fibromyalgia; M53.3 Sacrococcygeal disorders, not elsewhere classified; M47.817 Spondylosis without myelopathy or radiculopathy, lumbosacral region | CPT/HCPCS: 99202 ==

== ENCOUNTER 2025-05-01 13:29 | Outpatient (AMB) | payer MEDICARE, SELFPAY ==
[2025-05-01 13:31] VITALS: BP 124/70; PULSE 70; RESP 18; TEMP 36.7; O2SAT 96; BMI 36.6
--- NOTE | 2025-05-01 13:31 | A.OFFPC_ITS ---
Vital Signs 05/01/25 13:31 Height 5 ft 5 in Weight 220 lb BMI 36.6 BP 124/70 Blood Pressure Location Rt brachial Position Sitting Respiration 18 Pulse 70 Pulse Source Pulse Oximeter Temp 98.0 F Temp Source Oral Pulse Oximetry (%) 96 Oxygen Delivery Method Room Air Intake Visit Reasons: Ear wax Intake Note: Pt is here today for a sick visit. Pt c/o bilateral ear wax. Allergies ciprofloxacin (From CIPRO) Allergy (Intermediate, Verified 05/01/25 13:32) RASH Penicillins (PENICILLINS) Allergy (Intermediate, Verified 05/01/25 13:32) RASH ropinirole (From REQUIP) Allergy (Intermediate, Verified 05/01/25 13:32) RASH sulfamethoxazole (From BACTRIM) Allergy (Intermediate, Verified 05/01/25 13:32) RASH Medication List - Last Reconciled 05/01/25 by Vicky Walsh MD acetaminophen ER (Tylenol 8 Hour) 650 mg PO Q8H PRN albuterol sulfate 5 mg inhalation Q6H PRN bisacodyl (Dulcolax (bisacodyl)) 10 mg (2 x 5 mg) PO BEDTIME budesonide-formoterol 80-4.5 mcg/actuation (Symbicort) 2 puffs inhalation BID carboxymethylcellulose sodium 0.5% (Refresh Tears) 1 drp ophthalmic (eye) BID cholecalciferol (vitamin D3) 25 mcg PO DAILY cyclosporine 0.05% (Restasis) drps ophthalmic (eye) BID ibuprofen-diphenhydramine cit 200-38 mg (Motrin PM) 2 caps PO BEDTIME PRN levothyroxine 75 mcg PO DAILY levothyroxine (Levo-T) 50 mcg PO DAILY melatonin 5 mg PO BEDTIME methylcellulose (laxative) (Citrucel) 500 mg PO DAILY polyethylene glycol 3350 (Miralax) 238 grams PO ONCE Tobacco use date assessed: 05/01/25 Dental Screening Dental Screen Date: 05/01/25 Did you have a dental visit in the last 12 months?: Yes Did you have a dental problem in the last 6 months where you did not have access to dental care?: No Was dental information given to patient?: Patient has dentist HPI Ear wax HPI Details Patient presents complaining of decreased hearing and tinnitus in both ears left more than right. Patient would like to have a hearing test. She denies any change in the balance, headaches, nausea vomiting. Chronic asthma is stable on Symbicort. Patient is started taking 50 mcg of levothyroxine for hypothyroidism a month ago [facility] Medical History Asthma Hyperglycemia Lumbar pain Shoulder pain, bilateral Vertigo (~12/21/23) Obesity Depression Annual physical exam Hypothyroid Hyperlipidemia Abdominal wall hernia Fibromyalgia Neck pain Postoperative abdominal hernia Chronic asthma History of mammogram Surgical History History of cholecystectomy (03/10/15) History of varicose vein stripping (01/2016) History of foot surgery (2011) History of removal of laparoscopic gastric banding device (2010) History of hernia repair (2017) Hx of laparoscopic gastric banding (07/2008) History of total hysterectomy (08/2002) H/O oophorectomy H/O: hysterectomy (1987) H/O colonoscopy Family History Mother History of rheumatoid arthritis History of diabetes mellitus, type II Father History of stomach cancer History of cirrhosis of liver Mental health disorder Social History Housing: House Alcohol intake: current Alcohol intake frequency: holidays/special occasions only Patient Tobacco Use Status: Never used Tobacco e-Cigarette/Vaping Use: Never Used Second Hand Smoke Exposure: No service: No Current occupational status: unemployed Current occupation: Left Handed Current occupational exposures/hazards: No Cognitive needs: No Hearing needs: No Vision needs: Yes Questionnaire Thrive Questionnaire Date Thrive assessed: 04/29/25 I am a: Patient What is your living situation today?: I have a steady place to live Within the past 12 months, did the food you bought not last and you didn't have the money to get more?: Never true Within the past 12 months, did you worry whether your food would run out before you got money to buy more?: Never true Do you have trouble paying for medicines?: No Do you have trouble getting transportation to medical appointments?: No Do you have trouble paying your heating and electricity bill?: No Do you have trouble taking care of your child, family member or friend?: No Do you have trouble with day-to-day activities such as bathing, preparing meals, shopping, managing finances, etc.?: No Are you currently unemployed and looking for a job?: I choose not to answer this question Are you interested in more education?: No Please select the resources that you would like help with: None Currently or been in a relationship where the following occur: No concerns reported THRIVE Score: 0 AUDIT C Alcohol Use Questionnaire (AUDIT-C) 1. How often do you have a drink containing alcohol?: Monthly or less 2. How many drinks containing alcohol do you have on a typical day when you are drinking?: 1 or 2 3. How often do you have six or more drinks on one occasion?: Never Total Score: 1 KRYSTAL-7 AMB Questionnaire KRYSTAL-7 Date KRYSTAL - 7 assessed: 12/21/23 Feeling nervous, anxious, or on edge: 1 = Several days Not being able to stop or control worryin = Several days Worrying too much about different things: 1 = Several days Trouble relaxin = Several days Being so restless that it is hard to sit still: 0 = Not at all Becoming easily annoyed or irritable: 0 = Not at all Feeling afraid as if something awful might happen: 0 = Not at all Total KRYSTAL-7 score (0-4 normal; 5-9 mild; 10-14 moderate; 15-21 severe): 4 Source: Developed by Drs. Hung Beckett, Jumana Woo, Jake Tom and colleagues, with an educational nalini from [employer]. Review of Systems Const All systems reviewed & are unremarkable except as noted in HPI and below Eyes Reports no additional complaints ENT Reports no additional complaints Card Reports no additional complaints Resp Reports no additional complaints GI Reports no additional complaints Reports no additional complaints Physical exam (Primary Care) Vital Signs: Last Vital Signs Temp 98.0 F 05/01/25 13:31 Pulse 70 05/01/25 13:31 Resp 18 05/01/25 13:31 BP 124/70 05/01/25 13:31 Pulse Ox 96 05/01/25 13:31 Oxygen Delivery Method Room Air 05/01/25 13:31 BMI result Body Mass Index 36.6 Tobacco/Smoking Status: Tobacco use Status Tobacco use date assessed 05/01/25 05/01/25 13:34 Patient Tobacco Use Status Never used Tobacco 05/01/25 13:34 e-Cigarette/Vaping Use Never Used 05/01/25 13:34 Thrive Assessment: Date of Thrive Assessment Date Thrive assessed 04/29/25 05/01/25 13:34 Currently or been in a relationship where the following occur: No concerns reported Const General: no acute distress HENMT Head: Yes normal to inspection Ears: external ears normal and TM's normal bilaterally Mouth: Normal oral and palatal mucosa present Neck Neck: Yes supple Resp Effort & Inspection: normal respiratory effort Auscultation: clear to auscultation bilaterally Cardio Rhythm: regular rhythm Heart sounds: S1 normal heart sound present and S2 normal heart sound present GI Inspection: Yes normal to inspection Palpation (GI): Soft to palpation Percussion: Yes normal to percussion Coding Level of Care Code Est Pt Level 4 (15215) Diagnoses Hearing loss H91.90 Hypothyroid E03.9 Asthma J45.909 Assessment & Plan Assessment & Plan (1) Hearing loss: Comment: LEFT EAR Code(s): H91.90 - Unspecified hearing loss, unspecified ear Category: Medical Plan: Referred for hearing test (2) Hypothyroid: Comment: cont Levothyroxine Code(s): E03.9 - Hypothyroidism, unspecified Category: Medical Plan: Continue 50 mcg of levothyroxine check TSH in 1 month (3) Asthma: Code(s): J45.909 - Unspecified asthma, uncomplicated Category: Medical Plan: cont Symbicort Orders: Referrals Speech and Hearing Referral H91.90 - Unspecified hearing loss, unspecified ear Medications: Discontinued levothyroxine Discontinued Reason: Doctor's Order 25 mcg PO DAILY 90 tabs 0RF levothyroxine Discontinued Reason: Doctor's Order 75 mcg PO DAILY 90 tabs 3RF
== END 2025-05-01 14:22 | disposition home or self-care (01) ==
LOC: HO.HMCC 13:30
PROVIDERS: PCP Internal Medicine; Visit Provider Internal Medicine
DX: H91.90 Unspecified hearing loss, unspecified ear (principal); E03.9 Hypothyroidism, unspecified; J45.909 Unspecified asthma, uncomplicated

== ENCOUNTER → 2025-05-01 13:29 | Outpatient (BNVA) | payer MEDICARE, SELFPAY | PROVIDERS: PCP Internal Medicine; Visit Provider Internal Medicine | DX: E03.9 Hypothyroidism, unspecified (principal); J45.909 Unspecified asthma, uncomplicated; H91.92 Unspecified hearing loss, left ear | CPT/HCPCS: 99212 ==

== ENCOUNTER 2025-05-28 14:04 | Outpatient (AMB) | payer MEDICARE, SELFPAY ==
--- NOTE | 2025-05-28 14:19 | MHC.PC.OV ---
Vital Signs 05/28/25 14:20 Height 5 ft 5 in Weight 224 lb BMI 37.3 BP 112/78 Blood Pressure Location Lt brachial Position Sitting Respiration 18 Pulse 58 Pulse Source Pulse Oximeter Temp 97.7 F Temp Source Oral Pulse Oximetry (%) 96 Oxygen Delivery Method Room Air Intake Visit Reasons: ER follow up Intake Note: Pt is here today for ER follow up visit. Allergies ciprofloxacin (From CIPRO) Allergy (Intermediate, Verified 05/28/25 14:23) RASH Penicillins (PENICILLINS) Allergy (Intermediate, Verified 05/28/25 14:23) RASH ropinirole (From REQUIP) Allergy (Intermediate, Verified 05/28/25 14:23) RASH sulfamethoxazole (From BACTRIM) Allergy (Intermediate, Verified 05/28/25 14:23) RASH Medication List - Last Reconciled 05/28/25 by Vicky Walsh MD acetaminophen ER (Tylenol 8 Hour) 650 mg PO Q8H PRN albuterol sulfate 5 mg inhalation Q6H PRN baclofen 10 mg PO BEDTIME bisacodyl (Dulcolax (bisacodyl)) 10 mg (2 x 5 mg) PO BEDTIME budesonide-formoterol 80-4.5 mcg/actuation (Symbicort) 2 puffs inhalation BID carboxymethylcellulose sodium 0.5% (Refresh Tears) 1 drp ophthalmic (eye) BID cholecalciferol (vitamin D3) 25 mcg PO DAILY cyclosporine 0.05% (Restasis) drps ophthalmic (eye) BID ibuprofen-diphenhydramine cit 200-38 mg (Motrin PM) 2 caps PO BEDTIME PRN levothyroxine (Levo-T) 50 mcg PO DAILY lorazepam (Ativan) 1 mg PO ONCE melatonin 5 mg PO BEDTIME meloxicam 15 mg PO DAILY methylcellulose (laxative) (Citrucel) 500 mg PO DAILY polyethylene glycol 3350 (Miralax) 238 grams PO ONCE Tobacco use date assessed: 05/01/25 Dental Screening Dental Screen Date: 05/01/25 HPI ER follow up HPI Details Pt presents for f/u ER visit for LBP and constipation. Patient had a CT of the abdomen and pelvis without acute abnormalities. She has been taking MiraLax for constipation and has normal bowel movements. For chronic lower back pain she has has been taking ibuprofen 800 mg daily with only some relief. Patient reports pain when walking or sitting for long time. She denies weakness or numbness in extremities. Asthma is stable on Symbicort. [facility] Medical History Asthma Hyperglycemia Lumbar pain Shoulder pain, bilateral Vertigo (~12/21/23) Obesity Depression Annual physical exam Hypothyroid Hyperlipidemia Abdominal wall hernia Fibromyalgia Neck pain Postoperative abdominal hernia Chronic asthma History of mammogram Surgical History History of cholecystectomy (03/10/15) History of varicose vein stripping (01/2016) History of foot surgery (2011) History of removal of laparoscopic gastric banding device (2010) History of hernia repair (2017) Hx of laparoscopic gastric banding (07/2008) History of total hysterectomy (08/2002) H/O oophorectomy H/O: hysterectomy (1987) H/O colonoscopy Family History Mother History of rheumatoid arthritis History of diabetes mellitus, type II Father History of stomach cancer History of cirrhosis of liver Mental health disorder Social History Housing: House Alcohol intake: current Alcohol intake frequency: holidays/special occasions only Patient Tobacco Use Status: Never used Tobacco e-Cigarette/Vaping Use: Never Used Second Hand Smoke Exposure: No service: No Current occupational status: unemployed Current occupation: Left Handed Current occupational exposures/hazards: No Cognitive needs: No Hearing needs: No Vision needs: Yes Questionnaire Thrive Questionnaire Date Thrive assessed: 04/29/25 I am a: Patient What is your living situation today?: I have a steady place to live Within the past 12 months, did the food you bought not last and you didn't have the money to get more?: Never true Within the past 12 months, did you worry whether your food would run out before you got money to buy more?: Never true Do you have trouble paying for medicines?: No Do you have trouble getting transportation to medical appointments?: No Do you have trouble paying your heating and electricity bill?: No Do you have trouble taking care of your child, family member or friend?: No Do you have trouble with day-to-day activities such as bathing, preparing meals, shopping, managing finances, etc.?: No Are you currently unemployed and looking for a job?: I choose not to answer this question Are you interested in more education?: No Please select the resources that you would like help with: None Currently or been in a relationship where the following occur: No concerns reported THRIVE Score: 0 KRYSTAL-7 AMB Questionnaire KRYSTAL-7 Date KRYSTAL - 7 assessed: 12/21/23 Source: Developed by Drs. Hung Beckett, Jumana Woo, Jake Tom and colleagues, with an educational nalini from [employer]. Review of Systems Const All systems reviewed & are unremarkable except as noted in HPI and below Eyes Reports no additional complaints ENT Reports no additional complaints Card Reports no additional complaints Resp Reports no additional complaints GI Reports no additional complaints Reports no additional complaints Physical exam (Primary Care) Vital Signs: Last Vital Signs Temp 97.7 F 05/28/25 14:20 Pulse 58 05/28/25 14:20 Resp 18 05/28/25 14:20 BP 112/78 05/28/25 14:20 Pulse Ox 96 05/28/25 14:20 Oxygen Delivery Method Room Air 05/28/25 14:20 BMI result Body Mass Index 37.3 Tobacco/Smoking Status: Tobacco use Status Tobacco use date assessed 05/01/25 05/28/25 14:20 Patient Tobacco Use Status Never used Tobacco 05/28/25 14:20 e-Cigarette/Vaping Use Never Used 05/28/25 14:20 Thrive Assessment: Date of Thrive Assessment Date Thrive assessed 04/29/25 05/28/25 14:20 Currently or been in a relationship where the following occur: No concerns reported Const General: no acute distress HENMT Head: Yes normal to inspection Eyes General: appearance normal, both eyes and all related structures Neck Neck: Yes supple Resp Effort & Inspection: normal respiratory effort Auscultation: clear to auscultation bilaterally Cardio Rhythm: regular rhythm Heart sounds: S1 normal heart sound present and S2 normal heart sound present GI Inspection: Yes obesity Palpation (GI): Soft to palpation Percussion: Yes normal to percussion Auscultation: normal bowel sounds Back/Spine/Pelvis Other: Paraspinal tenderness in the lower lumbar region, right more than left, there is a tenderness over right SI joint Coding Level of Care Code Est Pt Level 4 (15386) Diagnoses Lower back pain M54.50 Chronic asthma J45.909 Abdominal wall hernia K43.9 Assessment & Plan Assessment & Plan (1) Lower back pain: Code(s): M54.50 - Low back pain, unspecified Category: Medical Plan: Meloxicam and baclofen are prescribed. 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
[2025-05-28 14:20] VITALS: BP 112/78; PULSE 58; RESP 18; TEMP 36.5; O2SAT 96; BMI 37.3
--- OUTSIDE RECORDS SUMMARY | 2025-05-28 15:17 | XMS_ITS | Data Portability ---
Author Organization [place] - [facility],, CONCEPCION CARRERA MD Address [address] [place] [address] Care Team Providers Care Coloring Room Man Name Role Phone ARANZA CRESPO Primary Care Provider [phone] Assessment No assessment recorded. Plan of Treatment Reminders Order Date Submit Date Provider Last Modified By Organization Details Last Modified Time Details Appointments None recorded. Lab pap test, thinprep, cervical 2016 017 [facility], Cytopathology Service, [address], [place], [address], 7 12:28:01 wet mount, vaginal 2016 017 [email or web address] 1 In-Office Order, Internal Use Only DO Not Attach Compendium DO Not Attach Compendium, Do Not Delete/merge, [id number] 7 16:22:09 fecal occult blood, stool 2016 017 [email or web address] 1 In-Office Order, Internal Use Only DO Not Attach Compendium DO Not Attach Compendium, Do Not Delete/merge, [id number] 7 16:21:41 urinalysi s, dipstick 2015 016 [id number] In-Office Order, Internal Use Only DO Not Attach Compendium DO Not Attach Compendium, Do Not Delete/merge, [id number] 6 04:20:31 wet mount, vaginal 2015 016 DBA_PATCH_ [id number] In-Office Order, Internal Use Only DO Not Attach Compendium DO Not Attach Compendium, Do Not Delete/merge, [id number] 6 04:20:31 pap, LB, vaginal 2015 016 [facility], Cytopathology Service, [address] [place], [address], 6 11:46:12 fecal occult blood, stool 2015 016 [email or web address] 1 In-Office Order, Internal Use Only DO Not Attach Compendium DO Not Attach Compendium, Do Not Delete/merge, [id number] 6 15:46:50 wet mount, vaginal 2014 015 GABO In-Office Order, Internal Use Only DO Not Attach Compendium DO Not Attach Compendium, Do Not Delete/merge, [id number] 5 15:09:09 Referral None recorded. Procedures None recorded. Surgeries None recorded. Imaging MAMMO, screening , digital, bilateral 2016 017 [facility], [address], [place], [address], 8 08:24:00 MAMMO, screening , digital, bilateral 2015 016 [facility] ([facility]), [address] [place], [address], 7 09:06:47 Medication Orders Estrace 0.01% (0.1 mg/gram) vaginal cream 2016 017 [email or web address] 1 [facility], [address] [place], [address], 7 16:21:41 fluconazo le 150 mg tablet 2016 017 INTERFACE [facility], [address] [place], [address], 7 16:21:56 fluconazo le 150 mg tablet 2015 016 tmeczywor [facility], [address] [place], [address], 7 15:37:10 Estrace 0.01% (0.1 mg/gram) vaginal cream 2014 015 smacmillan 1 [facility], [address] [place], [address], 5 15:07:27 fluconazo le 150 mg tablet 2014 015 [email or web address] [facility], [address] [place], [address], 7 15:37:10 Estrace 0.01% (0.1 mg/gram) vaginal cream 2014 015 [email or web address] 1 [facility], [address] [place], [address], 5 15:07:31 Patient TargetsNo targets recorded. Patient Instructions Encounter Date Encounter Id Patient Instructions Last Modified By Organization Details Last Modified Time 04/24/2015 [id number] atrophic vaginit is: care instructions [email or web address] Not available 04/24/2015 15:40:54 She is here as a new patient for a complaint of dyspareunia and vaginal dryness. She had a LAVHRSO [id number] for fibroids. She had surgery at age 23 for cysts on the ovary 25 pounds of cysts and LSO was done. She was taking ERT for 6 months after surgery, but then was advised to stop. She has not had any hormones since 2004, 11 years. 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 Flores in [...] see how she is doing and discuss usp usage of the E2 cram. RX and 2 free samples given, Estrace cream. Face to face discussion 45 minutes Not available 04/24/2015 15:07:31 07/17/2015 [id number] vaginal yeast infection: care instructions [email or web address] Not [...] E2 cream. Not available 07/17/2015 15:07:27 10/12/2015 [id number] She is here for annual exam, is [...] in detail. Not available 10/12/2015 15:46:50 04/15/2016 [id number] vaginal yeast infection: care instructions [id number] Not available 08/13/2016 04:20:31 She went to [facility] and has been on an antibiotic for 4 days, and complains of vaginal burning to the point it hurts to sit. she has a monilia vaginitis. The antibiotics are finished today. Urine dip is negative. RX Diflucan, call if symptoms persist or worsen, possible side effects discussed. Not available 04/15/2016 14:10:00 11/18/2016 [id number] atrophic vaginit is: care instructions Not available [...] standardized exercise regimen, such as that at elicit, and she is given literature for this. We discussed a referral to a rapid extractor operator and/or weight banking management consulting manager. All questions were answered. She mohinder think [...] DO Not Attach Compendium, Do Not Delete/merge, [id number] 11/18/2016 16:21:40 11/19/19 17 11/18/2016 ronnie ulloa Trichomonas negati ve Not Available In-Office Order Internal Use Only DO Not Attach Compendium DO Not Attach Compendium, Do Not Delete/merge, [id number] 11/18/2016 16:21:40 11/19/19 17 11/18/2016 wet mount , vagin al Hyphae positi ve Not Available In-Office Order Internal Use Only DO Not Attach Compendium DO Not Attach Compendium, Do Not Delete/merge, [id number] 11/18/2016 16:21:40 11/19/19 17 11/18/2016 wet mount , vagin al atrophic epithelium positi ve Not Available In-Office Order Internal Use Only DO Not Attach Compendium DO Not Attach Compendium, Do Not Delete/merge, [facility] 11/18/2016 16:21:40 11/19/19 17 11/18/2016 fecal occul t blood , stool Occult Blood negati ve Not Available In-Office Order Internal Use Only DO Not Attach Compendium DO Not Attach Compendium, Do Not Delete/merge, [facility] 11/18/2016 15:45:14 04/15/20 16 04/15/2016 wet mount , vagin al Clue Cells negati ve Not Available In-Office Order Internal Use Only DO Not Attach Compendium DO Not Attach Compendium, Do Not Delete/merge, [facility] 04/15/2016 13:46:05 04/15/20 16 04/15/2016 wet mount , vagin al Trichomonas negati ve Not Available In-Office Order Internal Use Only DO Not Attach Compendium DO Not Attach Compendium, Do Not Delete/merge, [facility] 04/15/2016 13:46:05 04/15/20 16 04/15/2016 wet mount , vagin al Hyphae positi ve Not Available In-Office Order Internal Use Only DO Not Attach Compendium DO Not Attach Compendium, Do Not Delete/merge, [facility] 04/15/2016 13:46:05 04/15/20 16 04/15/2016 wet mount , vagin al atrophic epithelium positi ve Not Available In-Office Order Internal Use Only DO Not Attach Compendium DO Not Attach Compendium, Do Not Delete/merge, [facility] 04/15/2016 13:46:05 04/15/20 16 04/15/2016 urina lysis , dipst ick GLU Negati ve Not Available In-Office Order Internal Use Only DO Not Attach Compendium DO Not Attach Compendium, Do Not Delete/merge, [facility] 04/15/2016 13:32:33 04/15/20 16 04/15/2016 urina lysis , dipst ick RAJEEV Negati ve Not Available In-Office Order Internal Use Only DO Not Attach Compendium DO Not Attach Compendium, Do Not Delete/merge, [facility] 04/15/2016 13:32:33 04/15/20 16 04/15/2016 urina lysis , dipst ick KET Large (160) Not Available In-Office Order Internal Use Only DO Not Attach Compendium DO Not Attach Compendium, Do Not Delete/merge, [facility] 04/15/2016 13:32:33 04/15/20 16 04/15/2016 urina lysis , dipst ick SG 1.020 Not Available In-Office Order Internal Use Only DO Not Attach Compendium DO Not Attach Compendium, Do Not Delete/merge, [facility] 04/15/2016 13:32:33 04/15/2004/15/2016 urina lysis , dipst ick BLO Hemoly zed : Trace Not Available In-Office Order Internal Use Only DO Not Attach Compendium DO Not Attach Compendium, Do Not Delete/merge, [facility] 04/15/2016 13:32:33 04/15/2004/15/2016 urina lysis , dipst ick pH 7.0 Not Available In-Office Order Internal Use Only DO Not Attach Compendium DO Not Attach Compendium, Do Not Delete/merge, [facility] 04/15/2016 13:32:33 04/15/20 16 04/15/2016 urina lysis , dipst ick PRO Negati ve Not Available In-Office Order Internal Use Only DO Not Attach Compendium DO Not Attach Compendium, Do Not Delete/merge, [facility] 04/15/2016 13:32:33 04/15/20 16 04/15/2016 urina lysis , dipst ick URO 0.2 E.U. / dl Not Available In-Office Order Internal Use Only DO Not Attach Compendium DO Not Attach Compendium, Do Not Delete/merge, [facility] 04/15/2016 13:32:33 04/15/20 16 04/15/2016 urina lysis , dipst ick NIT negati ve Not Available In-Office Order Internal Use Only DO Not Attach Compendium DO Not Attach Compendium, Do Not Delete/merge, [id number] 04/15/2016 13:32:33 04/15/20 16 04/15/2016 urina lysis , dipst ick AGUEDA Negati ve Not Available In-Office Order Internal Use Only DO Not Attach Compendium DO Not Attach Compendium, Do Not Delete/merge, [id number] 04/15/2016 13:32:33 10/12/19 16 10/12/2015 fecal occul t blood , stool Occult Blood negati ve Not Available In-Office Order Internal Use Only DO Not Attach Compendium DO Not Attach Compendium, Do Not Delete/merge, [id number] 10/12/2015 15:35:52 07/17/20 15 07/17/2015 wet mount , vagin al Clue Cells negati ve Not Available In-Office Order Internal Use Only DO Not Attach Compendium DO Not Attach Compendium, Do Not Delete/merge, [id number] 07/17/2015 14:46:36 07/17/20 15 07/17/2015 wet mount , vagin al Trichomonas negati ve Not Available In-Office Order Internal Use Only DO Not Attach Compendium DO Not Attach Compendium, Do Not Delete/merge, [id number] 07/17/2015 14:46:36 07/17/20 15 07/17/2015 wet mount , vagin al Hyphae positi ve Not Available In-Office Order Internal Use Only DO Not Attach Compendium DO Not Attach Compendium, Do Not Delete/merge, [id number] 07/17/2015 14:46:36 07/17/20 15 07/17/2015 wet mount , vagin al atrophic epithelium positi ve Not Available In-Office Order Internal Use Only DO Not Attach Compendium DO Not Attach Compendium, Do Not Delete/merge, [id number] 07/17/2015 14:46:36 10/12/19 16 10/12/2015 pap, LB [id number] ThinP rep Pap, Image d: NEGAT YOVANI [...] at the above addre ss. Not Available [facility], Cytopathology Service [address] [place], [address], 10/14/2015 11:46:12 11/19/19 17 11/18/2016 pap, LB [id number] ThinP rep Pap, Image d: NEGAT YOVANI [...] . LAST PAP MENOP AUSE Not Available [facility], Cytopathology Service [address] [place], [address], 11/21/2016 12:28:01 Result Notes None recorded. Problems Name Problem SNOMED Code Status Onset Date Resolution Date Notes Provider Name and Address Organization Details Recorded Time Dyspareunia 04584808 Active Concepcion Carrera MD [address], [place], [address], [place] - [facility], 6 15:45:26 Complicated ovarian cyst Active 2002, 25 pounds of contents , benign Concepcion Carrera MD [address], [place], [address], [place] - [facility], 6 15:45:26 Atrophic vaginitis 10849006 Active Concepcion Carrera MD [address], [place], [address], [place] [facility], 6 15:45:26 Diverticulit is 511842968 Active had surgery 08/2014 Concepcion Carrera MD [address], [place], [address], [place] [facility], 6 15:45:26 Candidal vulvovaginit is 80843704 Active Concepcion Carrera MD [address], [place], [address], [place] [facility], 6 15:45:26 Problem Notes None recorded. Procedures Surgical History Date Name Laterality Status Provider Name and Address Organization Details Recorded Time 03/28/20 16 Other completed Elvia Mecelijahwor [place] - [facility], 11/18/2016 15:43:23 08/28/19 15 Cholecystectomy completed Elvia Mecisabellor [place] - [facility], 04/24/2015 14:09:23 08/28/19 15 Other completed Concepcion Carrera MD [address], [place], [address], [place] [facility], 07/17/2015 14:43:51 08/28/19 12 Other completed Elvia Meczywor [place] - [facility], 04/24/2015 14:09:23 08/28/19 11 Other completed Elvia Meczioanawor [place] - [facility], 04/24/2015 14:09:23 08/28/19 08 Other completed Elvia Meczywor [place] [facility], 10/12/2015 15:34:20 08/28/19 03 Total Abdominal Hysterectomy completed Concepcion Carrera MD [address], [place], [address], [place] [facility], 04/24/2015 14:41:55 08/28/18 88 Removal of ovary/tube(s) completed Concepcion Carrera MD [address], [place], [address], [place] [facility], 04/24/2015 14:41:55 Imaging Results None recorded. Procedure Notes None recorded. Medical Equipment None Reported. Allergies Allergen ID Allergen Name Allergen Category Reaction Reaction Severity Criticality Documentation Date Start Date Code Code System Note Provider Name and Address Organization Details Recorded Time Product containin g penicilli n (product) medicatio n rash Not available Not available 04/24/2015 62099 8001 SNOMED ElviaJULISA Mauro in [facility], 5 14:09:24 Requip medicatio n rash Not available Not available 04/24/2015 57528 1 RxNorm JULISA Ross in [facility], 5 14:09:24 Medications Name Sig Start Date [...] Details Last Updated DateTime 10/12/2015 165.1 cm 680953.5 49874 g 37.6 kg/m2 64 /min 116/72 mm[Hg] Elvia Almanzar [place] - [facility], 10/12/2015 15:34:21 Date Recorded Body height Body weight Body mass index (BMI) Heart rate Systolic And Diastolic Provider Name and Address Organization Details Last Updated DateTime 11/18/2016 165.1 cm 180320.9 4 g 37 kg/m2 71 /min 126/74 mm[Hg] Elvia De La Vega in [facility], 11/18/2016 15:41:37 Date Recorded Body height Heart rate Body weight Body mass index (BMI) Body temperature Systolic And Diastolic Provider Name and Address Organization Details Last Updated DateTime 6 165.1 cm 59 /min 86958.7 3 g 36.4 kg/m2 98.2 [degF] 115/61 mm[Hg] Andree De La Vega in [facility], 6 13:31:14 Date Recorded Body height Body mass index (BMI) Heart rate Body weight Systolic And Diastolic Provider Name and Address Organization Details Last Updated DateTime 04/24/2015 165.1 cm 38.5 kg/m2 64 /min 873861.2 50679 g 111/59 mm[Hg] Elvia De La Vega in [facility], 04/24/2015 14:09:24 Date Recorded Body height Body mass index (BMI) Body weight Provider Name and Address Organization Details Last Updated DateTime 07/17/2015 165.1 cm 38.4 kg/m2 898649.4049 22 g Andree De La Vega in [facility], 07/17/2015 14:37:37 Date Recorded Heart rate Systolic And Diastolic Provider Name and Address Organization Details Last Updated DateTime 07/17/2015 62 /min 122/65 mm[Hg] Elvia Torrez sociates in [facility], 07/17/2015 14:48:54 Social History Question Answer Notes LastModified by Organizat ion Details LastModified Time Tobacco Smoking Status Never Smoker Not Available [employer] 06/30/2020 03:19:40 What Is Your Level Of Caffeine Consumption? Occasional [id number] Information not available 06/30/2020 What Type Of Diet Are You Following? REGULAR [id number] Information not available 06/30/2020 Which Illicit Or Recreational Drugs Have You Used? No [id number] Information not available 06/30/2020 Do You Reside In Or Have You Traveled To An Area Where Ebola Virus Transmission Is Active? No [id number] Information not available 06/30/2020 Education 12 Information no t available 04/24/2015 How Many Days In The Past Year Have You Had A Heavy Drinking Consumption (4+ Female, 5+ Male)? 0 Information no t available 04/15/2016 High Number Of Sexual Partners No Information not available 04/15/2016 To Which Gender Do You Self-identify? Female Information not available 04/15/2016 Marital Status Informatio n not available 04/24/2015 Are You Sexually Active? Yes [id number] Information not available 06/30/2020 How Much Tobacco Do You Smoke? No [id number] Information not available 06/30/2020 General Stress Level Medium Information not available 10/12/2015 Have You Recently (within The Last 12 Weeks, Or During A Current ) Traveled To Or Lived In A Zika-affected Area? No Information not available 04/15/2016 Sex: Unknown Functional Status Question Answer Note LastModified by Organizat ion Details LastModified Time What is your level of alcohol consumption? 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 Occasional [id number] Information not available 06/30/2020 Mental Status None recorded. Family History Relationship Description Onset Age of this Age Resolved Age Notes LastModified by Organization Details LastModified Time Father Malignant neoplasm of colon stomac h Not available 10/12/2015 15:41:38 Father Problem lymphe abdelrahman, testic ular Not available 10/12/2015 15:41:38 Mother Problem osteoa rthrit is Not available 10/12/2015 15:41:38 Sister Osteoporosis osteoa rthrit is Not available 10/12/2015 15:41:38 Medical History Condition Response Anesthesia complications N High Blood Pressure N Candidate for MyRisk panel N Autoimmune Condition N Thyroid Problems N Kidney or Bladder Problems Y GI Problems Y Lung Disease N Depression [...] Diagnosis SNOMED-CT Code Diagnosis ICD10 Code Diagnosis IMO Codes Diagnosis Note [id number] MD CONCEPCION Ortiz MD [address] [place] [address],[address] [address] 04/24/2015 13:33:01 04/24/2015 15:51:14 Dyspareunia 15859671 Atrophic vaginitis 66648722 [id number] MD CONCEPCION Ortiz MD [address] [place] [address] 07/17/2015 14:32:27 07/17/2015 15:35:48 Candidal vulvovaginitis 92504767 B37.3 Atrophic vaginitis 26427 000 N95.2 [id number] MD CONCEPCION Ortiz MD [address] [place] [address] 10/12/2015 15:24:49 10/12/2015 16:05:10 Specialized medical examination 92159909 Z01.419 Screening for malignant neoplasm of rectum 351031783 Z12.12 Screening mammography 24 969241 Z12.31 [id number] MD CONCEPCION Ortiz MD [address] [place], [place] [address] [address] [place] [address] 04/15/2016 13:20:40 04/15/2016 14:43:12 Acute lower urinary tract infection 141134445 R30.0 Candidal vulvovaginitis 46531407 B37.3 [id number] MD CONCEPCION Ortiz MD [address] [place] [phone] 11/18/2016 15:35:57 11/21/2016 08:41:06 Specialized medical examination 79321609 Z01.419 Screening for malignant neoplasm of rectum 894807282 Z12.12 Screening mammography 24 305345 Z12.31 Atrophic vaginitis 46102 000 N95.2 Candidal vulvovaginitis 17030630 B37.3 Health Concerns Section Related Observation LastModified by Organization Detai ls LastModified Time None Recorded Concern Status LastModified by Organization Details LastModified Time None Recorded Advance Directives Directive None Recorded Payers Insurance Date Sequence Insurance Name Policy Number Policy Cha Covered Member ID Cha Member ID Guarantor Name 11/21/[address] [place] [address] [id number] Augusta Daudelin [id number] Augusta Daudelin Notes Date Note Type Note Provider Name and Address Organization Details Recorded Time 04/24/2015 text/html ROS as noted in the HPI Concepcion Carrera MD [address], [place], [address], [place] - [facility], 04/24/2015 15:07:42 07/17/2015 text/html ROS as noted in the HPI Concepcion Carrera MD [address], [place], [address], [place] [facility], 07/17/2015 15:09:55 10/12/2015 text/html ROS as noted in the HPI Concepcion Carrera MD [address], [place], [address], [place] [facility], 10/12/2015 15:55:58 04/15/2016 text/html She went to [facility] and has been on an antibiotic for 4 days, and complains of vaginal burning to the point it hurts to sit. Concepcion Carrera MD [address], [place], [address], [place] [facility], 04/15/2016 14:10:23 11/18/2016 text/html She is here for annual exam, is doing well. She notes a good improvement with the E2 vaginal cream. She is using mucinex and antibiotics for a sinus infection now. Concepcion Carrera MD [address], [place], [address], [place] [facility], 11/18/2016 16:23:34 OBGyn Episode No OBEpisode recorded.
== END 2025-05-28 15:29 | disposition home or self-care (01) ==
LOC: HO.HMCC 14:05
PROVIDERS: PCP Internal Medicine; Visit Provider Internal Medicine
DX: M54.50 Low back pain, unspecified (principal); J45.909 Unspecified asthma, uncomplicated; K43.9 Ventral hernia without obstruction or gangrene

== ENCOUNTER → 2025-05-28 14:04 | Outpatient (BNVA) | payer MEDICARE, SELFPAY | PROVIDERS: PCP Internal Medicine; Visit Provider Internal Medicine | DX: K43.9 Ventral hernia without obstruction or gangrene (principal); J45.909 Unspecified asthma, uncomplicated; K59.00 Constipation, unspecified; M54.50 Low back pain, unspecified; Z79.899 Other long term (current) drug therapy | CPT/HCPCS: 99212 ==

== ENCOUNTER 2025-06-19 06:17 | Outpatient (REF) | payer MEDICARE, SELFPAY ==
--- NOTE | ~2025-06-19 | FL_ITS ---
EXAMINATION: FL GUIDANCE ONLY HISTORY: M53.3 - Sacrococcygeal disorders, not elsewhere classified COMPARISON: None available. TECHNIQUE: Fluoroscopy time: 0.1 minute. Cumulative Dose: 3.30 mGy. DAP: 38.13 uGym2 Images: 2. FINDINGS: Fluoroscopic spot films of the right hemipelvis demonstrate a needle in the region of the sacroiliac joint. FL/FL guidance in treatment room IMPRESSION: Fluoroscopy during procedure. Please see procedure report for additional information. Electronically signed by: Hung Perkins MD 06/19/2025 03:15 PM EDT
--- OUTSIDE RECORDS SUMMARY | 2025-06-19 06:20 | XMS_ITS | Data Portability ---
Author Organization [place] [facility] Address [address] [place] [id number] Care Team Providers Care Unit Receptionist Name Role Phone HARSHILARANZA BILLINGS Primary Care Provider [phone] Assessment Encounter Date Assessment Date Assessment LastModified [...] after care of this patient according to [facility] access hospital's infection prevention protocols. Not available 03/06/2023 10:49:43 Plan of Treatment Reminders Order Date Submit Date Provider Last Modified By Organization Details Last Modified Time Details Appointments None recorded. Lab urinalysis , dipstick 2022 023 [email or web address] 5 [facility], [address] [place] [address], [id number], 10:30:49 culture, urine 2022 023 GABO [facility] (Centralized Electronic Ordering - All Locations), Patient Can Go To The Location Of Their Choice, [id number] 06:51:16 Referral None recorded. Procedures None recorded. Surgeries None recorded. Imaging None recorded. Medication Orders None recorded. Patient TargetsNo targets recorded. Patient Instructions Encounter Date Encounter Id Patient Instructions Last Modified By Organization Details Last Modified Time 03/06/2023 [id number] BASIC INFORMATIO N Urinary tract infections(UTI) can involve any portion of the urinary tract. The most common presentation is a bladder infection/cystitis, which usually presents with urinary frequency, burning with urination, urgency, foul smelling cloudy urine and occasionally blood. Kidney infections are less frequent, but more serious, and present with fever, flank pain, malaise and sometimes shaking chills. UTI s are common in women because of the female anatomy, and much less common in males. INSTRUCTIONS Drink plenty of fluid, water is best. Drinking fluids will help to flush the bacteria from your body. Urinate every 2-3 hours Wear cotton underwear and avoid Nylon, Spandex and Lycra which tend to trap moisture and thong underwear which may facilitate UTI s . Avoid tub baths Avoid using [...] in your condition between 8am-10pm, [facility] [phone] to help navigate your care. [email or web address] Not available 03/06/2023 10:31:44 Reason for Referral None Reported. Results Created Date Observation Date Name Description Value Unit Range Abnormal Flag Note LastModifiedBy Organization Detail LastModifiedTime 03/06/2003/07/2023 URINE CULTU RE specimen description CLEAN CATCH (URINE ) Not Available [facility] (Centralized Electronic Ordering - All Locations) Patient Can Go To The Location Of Their Choice, [id number] 03/08/2023 06:51:16 03/06/2003/07/2023 URINE CULTU RE special requests NONE Not Available [facility] (Centralized [facility] Ordering - All Locations) Patient Can Go To The Location Of Their Choice, [id number] 03/08/2023 06:51:16 03/06/2003/08/2023 URINE CULTU RE culture NO GROWTH Not Available [facility] (Centralized Electronic Ordering - All Locations) Patient Can Go To The Location Of Their Choice, [id number] 03/08/2023 06:51:16 03/06/20 23 03/08/2023 URINE CULTU RE report status FINAL 2022 Not Available [facility] (Centralized Electronic Ordering - All Locations) Patient Can Go To The Location Of Their Choice, [facility] 03/08/2023 06:51:16 03/06/2003/06/2023 urina lysis , dipst ick Appearance clear Not Available [facility] [address] [place], [address], 03/06/2023 10:12:18 03/06/2003/06/2023 urina lysis , dipst ick Color yellow Not Available [facility] [address] [place], [address], 03/06/2023 10:12:18 03/06/20 23 03/06/2023 urina lysis , dipst ick Glucose (ref: neg) Neg Not Available [facility] [address] [place], [address], 03/06/2023 10:12:18 03/06/20 23 03/06/2023 urina lysis , dipst ick Bilirubin (ref: neg) Neg Not Available [facility] [address] [place], [address], 03/06/2023 10:12:18 03/06/20 23 03/06/2023 urina lysis , dipst ick Ketones (ref: neg) Neg Not Available [facility] [address] [place], [address], 03/06/2023 10:12:18 03/06/20 23 03/06/2023 urina lysis , dipst ick Specific [place] (ref: 1.005 - 1.030) 1.005 Not Available [place] [address], [place], [address], 03/06/2023 10:12:18 03/06/20 23 03/06/2023 urina lysis , dipst ick Blood (ref: neg) Not Available [address] [place], [place], [address], 03/06/2023 10:12:18 03/06/20 23 03/06/2023 urina lysis , dipst ick pH (ref: 5.0-7.0) 7.5 Not Available [address] [place], [place], [address], 03/06/2023 10:12:18 03/06/20 23 03/06/2023 urina lysis , dipst ick Protein (ref: neg) Neg Not Available [address] [place], [place], [address], 03/06/2023 10:12:18 03/06/20 23 03/06/2023 urina lysis , dipst ick Urobilinogen (ref: 0.2-1) 0.2 Not Available [address] [place], [place], [address], 03/06/2023 10:12:18 03/06/20 23 03/06/2023 urina lysis , dipst ick Nitrites (ref: neg) negati ve Not Available [address] [place], [place], [address], 03/06/2023 10:12:18 03/06/2003/06/2023 urina lysis , dipst ick Leukocytes (ref: neg) Not Available [address] [place], [place], [address], 03/06/2023 10:12:18 03/06/20 23 03/06/2023 urina lysis , dipst ick Location [facility] [address] [place] [address], [id number] Not Available [facility] - [facility] [address] [place], [address], 03/06/2023 10:12:18 Result Notes None recorded. Procedures Surgical History Date Name Laterality Status Provider Name and Address Organization Details Recorded Time Hernia Repair completed DEVIN Chavez [address] [place], [address], [place] [facility] 03/06/2023 10:08:09 Imaging Results None recorded. Procedure Notes None recorded. Medical Equipment None Reported. Allergies Allergen ID Allergen Name Allergen Category Reaction Reaction Severity Criticality Documentation Date Start Date Code Code System Note Provider Name and Address Organization Details Recorded Time 227607 Bactrim medicatio n Not available Not available Not available 03/06/2023 43489 9 RxNorm DEVIN Chavez [address] [place], [address], [place] [facility] 10:04:54 [id number] Product containin g penicilli n (product) medicatio n Not available Not available Not available 03/06/2023 14869 8001 SNOMED DEVIN Chavez [address] [place], [address], [place] [facility] 3 10:05:01 [id number] Cipro medicatio n Not available Not available Not available 03/06/2023 11369 3 RxNorm DEVIN Chavez [facility] [place], [address], [place] [facility] 3 10:05:07 [...] Pulse oximetry Body temperature Respiratory rate Systolic And Diastolic Provider Name and Address Organization Details Last Updated DateTime 3 82 /min 98 % 98 % 97.7 [degF] 18 /min 130/80 mm[Hg] Not Available [facility] 10:07:48 Social History Question Answer Notes LastModified by Organizat ion Details LastModified Time Tobacco Smoking Status Never Smoker DEVIN Chavez [address] [place], [address], [place] [facility] 03/06/2023 10:07:29 Fall Risk: Do You Feel Unsteady When Standing Or Walking? No [email or web address] Information not available 03/06/2023 Excessive Alcohol Or Drug Use No [email or web address] Information not available 03/06/2023 Does This Patient Have A PCP? Yes [email or web address] Information not available 03/06/2023 Has The Patient Seen Their PCP In The Past 6 Months? Yes [email or web address] Information not available 03/06/2023 ADL: Do You Need Help With Daily Activities Such As Bathing, Preparing Meals, Dressing, Or Cleaning? No [email or web address] Information not available 03/06/2023 What Is Your Housing Situation Today? I Have Housing [email or web address] Information not available 03/06/2023 Sex: Unknown Functional Status Question Answer Note LastModified by Organizat ion Details LastModified Time Do you use any illicit or recreational drugs? No [email or web address] Information not available 03/06/2023 What is your level of alcohol consumption? Occasional [email or web address] Information not available 03/06/2023 Mental Status None recorded. Family History Relationship Description Onset Age of this Age Resolved Age Notes LastModified by Organization Details LastModified Time Mother Diabetes mellitus Not available 03/06 10:06:59 Father Cirrhosis of liver [email or web address] Not available 03/06 10:07:13 Medical History Condition Response Coronary Artery Disease N Parkinson's Disease N COPD N Depression Y Hypothyroidism Y A-fib N Diabetes N CHF N Cancer N Dementia N Stroke N Asthma Y High Cholesterol Y Rheumatoid Arthritis N Pulmonary Embolism N Hypertension N Osteoporosis N Kidney Disease N Gynecological HistoryNo gynecological history recorded. Obstetrics History GPAL:G 0 P 0 0 0 0 Past Encounters Encounter ID Performer Location Encounter Start Date Encounter Closed Date Diagnosis/Indication Diagnosis SNOMED-CT Code Diagnosis ICD10 Code Diagnosis IMO Codes Diagnosis Note [id number] DEVIN Chavez [facility] [address] [place] [address] 03/06/2023 10:03:54 03/09/2023 15:02:44 Dysuria 07509074 R30.0 Status of condition: Acute. Testing/Re sults: UA shows trace blood and [...] dizziness, cp, sob, decreased urine output. Asthma 560982281 J45.90 9 Status of condition: Chronic. Testing/Re sults: lungs are clear on exam, [...] Name 03/05/2023 1 *SELF PAY* Augusta Daudelin [id number] Augusta Daudelin 03/07/2023 1 [place] [facility] Augusta Daudelin [id number] Augusta Daudelin 03/06/2023 1 [place] Augusta Daudelin [id number] Augusta Daudelin 03/09/2023 1 [place] Augusta Daudelin [id number] Augusta Daudelin 03/07/2023 1 [employer] (MEDICAID REPLACEMENT - HMO) Augusta Daudelin [id number] Augusta Daudelin 03/09/2023 1 [employer] (MEDICAID REPLACEMENT - HMO) [employer] Augusta Daudelin [id number] Augusta Daudelin Notes Date Note Type Note Provider Name and Address Organization Details Recorded Time 03/06/2023 text/html General HPI Template - DHReported by Patient 57 y/o female new to and provider [...] urine output. DEVIN Chavez [address], [place], [address], [place] [facility] 03/06/2023 11:09:17 OBGyn Episode No OBEpisode recorded.
--- OUTSIDE RECORDS SUMMARY | 2025-06-19 06:20 | XMS_ITS | Data Portability ---
Author Organization [place] - [facility],, CONCEPCION CARRERA MD Address [address] [place] [address] Care Team Providers Care Assistant Chief Engineer Name Role Phone ARANZA CRESPO Primary Care Provider Assessment No assessment recorded. Plan of Treatment Reminders Order Date Submit Date Provider Last Modified By Organization Details Last Modified Time Details Appointments None recorded. Lab pap test, thinprep, cervical 2016 017 [facility], Cytopathology Service, [address], [place], [address], 7 12:28:01 wet mount, vaginal 2016 017 [email or web address] 1 In-Office Order, Internal Use Only DO Not Attach Compendium DO Not Attach Compendium, Do Not Delete/merge, [id number] 7 16:22:09 fecal occult blood, stool 2016 017 [email or web address] 1 In-Office Order, Internal Use Only DO Not Attach Compendium DO Not Attach Compendium, Do Not Delete/merge, [id number] 7 16:21:41 urinalysi s, dipstick 2015 016 [id number] In-Office Order, Internal Use Only DO Not Attach Compendium DO Not Attach Compendium, Do Not Delete/merge, [id number] 6 04:20:31 wet mount, vaginal 2015 016 [id number] In-Office Order, Internal Use Only DO Not Attach Compendium DO Not Attach Compendium, Do Not Delete/merge, [id number] 6 04:20:31 pap, LB, vaginal 2015 016 [facility], Cytopathology Service, [address] [place], [address], 6 11:46:12 fecal occult blood, stool 2015 016 [email or web address] 1 In-Office Order, Internal Use Only DO Not Attach Compendium DO Not Attach Compendium, Do Not Delete/merge, [id number] 6 15:46:50 wet mount, vaginal 2014 015 GABO In-Office Order, Internal Use Only DO Not Attach Compendium DO Not Attach Compendium, Do Not Delete/merge, [id number] 5 15:09:09 Referral None recorded. Procedures None recorded. Surgeries None recorded. Imaging MAMMO, screening , digital, bilateral 2016 017 [facility], [address], [place], [address], 8 08:24:00 MAMMO, screening , digital, bilateral 2015 016 [facility] ([facility]), [address] [place], [address], 7 09:06:47 Medication Orders Estrace 0.01% (0.1 mg/gram) vaginal cream 2016 017 [email or web address] 1 [facility], [address] [place], [address], 7 16:21:41 fluconazo le 150 mg tablet 2016 017 INTERFACE [facility], [address] [place], [address], 7 16:21:56 fluconazo le 150 mg tablet 2015 016 [email or web address] [facility], [address] [place], [address], 7 15:37:10 Estrace 0.01% (0.1 mg/gram) vaginal cream 2014 015 smacmillan 1 [facility], [address] [place], [address], 5 15:07:27 fluconazo le 150 mg tablet 2014 015 [email or web address] [facility], [address] [place], [address], 7 15:37:10 Estrace 0.01% (0.1 mg/gram) vaginal cream 2014 015 [email or web address] 1 [facility], [address] [place], [address], 5 15:07:31 Patient TargetsNo targets recorded. Patient Instructions Encounter Date Encounter Id Patient Instructions Last Modified By Organization Details Last Modified Time 04/24/2015 [id number] atrophic vaginit is: care instructions [email or web address] Not available 04/24/2015 15:40:54 She is here as a new patient for a complaint of dyspareunia and vaginal dryness. She had a LAVHRSO [id number] for fibroids. She had surgery at age 23 for cysts on the ovary 25 pounds of cysts and LSO was done. She was taking ERT for 6 months after surgery, but then was advised to stop. She has not had any hormones since 2004, 11 years. 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 Flores in 08/2014. [...] see how she is doing and discuss intermediate usage of the E2 cram. RX and 2 free samples given, Estrace cream. Face to face discussion 45 minutes Not available 04/24/2015 15:07:31 07/17/2015 [id number] vaginal yeast infection: care instructions [email or web address] Not [...] E2 cream. Not available 07/17/2015 15:07:27 10/12/2015 [id number] She is here for annual exam, is [...] in detail. Not available 10/12/2015 15:46:50 04/15/2016 [id number] vaginal yeast infection: care instructions [id number] Not available 08/13/2016 04:20:31 She went to [facility] and has been on an antibiotic for 4 days, and complains of vaginal burning to the point it hurts to sit. she has a monilia vaginitis. The antibiotics are finished today. Urine dip is negative. RX Diflucan, call if symptoms persist or worsen, possible side effects discussed. Not available 04/15/2016 14:10:00 11/18/2016 [id number] atrophic vaginit is: care instructions Not available [...] standardized exercise regimen, such as that at [employer], and she is given literature for this. We discussed a referral to a strawhat inspector and packer and/or weight professor of sport management. All questions were answered. She mohinder think [...] DO Not Attach Compendium, Do Not Delete/merge, [id number] 11/18/2016 16:21:40 11/19/19 17 11/18/2016 ronnie ulloa Trichomonas negati ve Not Available In-Office Order Internal Use Only DO Not Attach Compendium DO Not Attach Compendium, Do Not Delete/merge, [id number] 11/18/2016 16:21:40 11/19/19 17 11/18/2016 wet mount , vagin al Hyphae positi ve Not Available In-Office Order Internal Use Only DO Not Attach Compendium DO Not Attach Compendium, Do Not Delete/merge, [id number] 11/18/2016 16:21:40 11/19/19 17 11/18/2016 wet mount , vagin al atrophic epithelium positi ve Not Available In-Office Order Internal Use Only DO Not Attach Compendium DO Not Attach Compendium, Do Not Delete/merge, [facility] 11/18/2016 16:21:40 11/19/19 17 11/18/2016 fecal occul t blood , stool Occult Blood negati ve Not Available In-Office Order Internal Use Only DO Not Attach Compendium DO Not Attach Compendium, Do Not Delete/merge, [facility] 11/18/2016 15:45:14 04/15/20 16 04/15/2016 wet mount , vagin al Clue Cells negati ve Not Available In-Office Order Internal Use Only DO Not Attach Compendium DO Not Attach Compendium, Do Not Delete/merge, [facility] 04/15/2016 13:46:05 04/15/20 16 04/15/2016 wet mount , vagin al Trichomonas negati ve Not Available In-Office Order Internal Use Only DO Not Attach Compendium DO Not Attach Compendium, Do Not Delete/merge, [facility] 04/15/2016 13:46:05 04/15/20 16 04/15/2016 wet mount , vagin al Hyphae positi ve Not Available In-Office Order Internal Use Only DO Not Attach Compendium DO Not Attach Compendium, Do Not Delete/merge, [facility] 04/15/2016 13:46:05 04/15/20 16 04/15/2016 wet mount , vagin al atrophic epithelium positi ve Not Available In-Office Order Internal Use Only DO Not Attach Compendium DO Not Attach Compendium, Do Not Delete/merge, [facility] 04/15/2016 13:46:05 04/15/20 16 04/15/2016 urina lysis , dipst ick GLU Negati ve Not Available In-Office Order Internal Use Only DO Not Attach Compendium DO Not Attach Compendium, Do Not Delete/merge, [facility] 04/15/2016 13:32:33 04/15/20 16 04/15/2016 urina lysis , dipst ick RAJEEV Negati ve Not Available In-Office Order Internal Use Only DO Not Attach Compendium DO Not Attach Compendium, Do Not Delete/merge, [facility] 04/15/2016 13:32:33 04/15/20 16 04/15/2016 urina lysis , dipst ick KET Large (160) Not Available In-Office Order Internal Use Only DO Not Attach Compendium DO Not Attach Compendium, Do Not Delete/merge, [facility] 04/15/2016 13:32:33 04/15/20 16 04/15/2016 urina lysis , dipst ick SG 1.020 Not Available In-Office Order Internal Use Only DO Not Attach Compendium DO Not Attach Compendium, Do Not Delete/merge, [facility] 04/15/2016 13:32:33 04/15/2004/15/2016 urina lysis , dipst ick BLO Hemoly zed : Trace Not Available In-Office Order Internal Use Only DO Not Attach Compendium DO Not Attach Compendium, Do Not Delete/merge, [facility] 04/15/2016 13:32:33 04/15/2004/15/2016 urina lysis , dipst ick pH 7.0 Not Available In-Office Order Internal Use Only DO Not Attach Compendium DO Not Attach Compendium, Do Not Delete/merge, [facility] 04/15/2016 13:32:33 04/15/20 16 04/15/2016 urina lysis , dipst ick PRO Negati ve Not Available In-Office Order Internal Use Only DO Not Attach Compendium DO Not Attach Compendium, Do Not Delete/merge, [facility] 04/15/2016 13:32:33 04/15/20 16 04/15/2016 urina lysis , dipst ick URO 0.2 E.U. / dl Not Available In-Office Order Internal Use Only DO Not Attach Compendium DO Not Attach Compendium, Do Not Delete/merge, [facility] 04/15/2016 13:32:33 04/15/20 16 04/15/2016 urina lysis , dipst ick NIT negati ve Not Available In-Office Order Internal Use Only DO Not Attach Compendium DO Not Attach Compendium, Do Not Delete/merge, [id number] 04/15/2016 13:32:33 04/15/20 16 04/15/2016 urina lysis , dipst ick AGUEDA Negati ve Not Available In-Office Order Internal Use Only DO Not Attach Compendium DO Not Attach Compendium, Do Not Delete/merge, [id number] 04/15/2016 13:32:33 10/12/19 16 10/12/2015 fecal occul t blood , stool Occult Blood negati ve Not Available In-Office Order Internal Use Only DO Not Attach Compendium DO Not Attach Compendium, Do Not Delete/merge, [id number] 10/12/2015 15:35:52 07/17/20 15 07/17/2015 wet mount , vagin al Clue Cells negati ve Not Available In-Office Order Internal Use Only DO Not Attach Compendium DO Not Attach Compendium, Do Not Delete/merge, [id number] 07/17/2015 14:46:36 07/17/20 15 07/17/2015 wet mount , vagin al Trichomonas negati ve Not Available In-Office Order Internal Use Only DO Not Attach Compendium DO Not Attach Compendium, Do Not Delete/merge, [id number] 07/17/2015 14:46:36 07/17/20 15 07/17/2015 wet mount , vagin al Hyphae positi ve Not Available In-Office Order Internal Use Only DO Not Attach Compendium DO Not Attach Compendium, Do Not Delete/merge, [id number] 07/17/2015 14:46:36 07/17/20 15 07/17/2015 wet mount , vagin al atrophic epithelium positi ve Not Available In-Office Order Internal Use Only DO Not Attach Compendium DO Not Attach Compendium, Do Not Delete/merge, [id number] 07/17/2015 14:46:36 10/12/19 16 10/12/2015 pap, LB [id number] ThinP rep Pap, Image d: NEGAT YOVANI [...] at the above addre ss. Not Available [facility], Cytopathology Service [address] [place], [address], 10/14/2015 11:46:12 11/19/19 17 11/18/2016 pap, LB [id number] ThinP rep Pap, Image d: NEGAT YOVANI [...] . LAST PAP MENOP AUSE Not Available [facility], Cytopathology Service [address] [place], [address], 11/21/2016 12:28:01 Result Notes None recorded. Problems Name Problem SNOMED Code Status Onset Date Resolution Date Notes Provider Name and Address Organization Details Recorded Time Dyspareunia 42714667 Active Concepcion Carrera MD [address], [place], [address], [place] - [facility], 6 15:45:26 Complicated ovarian cyst Active 2002, 25 pounds of contents , benign Concepcion Carrera MD [address], [place], [address], [place] - [facility], 6 15:45:26 Atrophic vaginitis 49266276 Active Concepcion Carrera MD [address], [place], [address], [place] - [facility], 6 15:45:26 Diverticulit is 297264212 Active had surgery 08/2014 Concepcion Carrera MD [address], [place], [address], [place] - [facility], 6 15:45:26 Candidal vulvovaginit is 96409660 Active Concepcion Carrera MD [address], [place], [address], [place] - [facility], 6 15:45:26 Problem Notes None recorded. Procedures Surgical History Date Name Laterality Status Provider Name and Address Organization Details Recorded Time 03/28/20 16 Other completed Elvia Mecelijahwor [place] - [facility], 11/18/2016 15:43:23 08/28/19 15 Cholecystectomy completed Elvia Mecisabellor [place] - [facility], 04/24/2015 14:09:23 08/28/19 15 Other completed Concepcion Carrera MD [address], [place], [address], [place] - [facility], 07/17/2015 14:43:51 08/28/19 12 Other completed Elvia Meczywor [place] - [facility], 04/24/2015 14:09:23 08/28/19 11 Other completed Elvia Meczioanawor [place] - [facility], 04/24/2015 14:09:23 08/28/19 08 Other completed Elvia Meczywor [place] - [facility], 10/12/2015 15:34:20 08/28/19 03 Total Abdominal Hysterectomy completed Concepcion Carrera MD [address], [place], [address], [place] - [facility], 04/24/2015 14:41:55 08/28/18 88 Removal of ovary/tube(s) completed Concepcion Carrera MD [address], [place], [address], [place] - [facility], 04/24/2015 14:41:55 Imaging Results None recorded. Procedure Notes None recorded. Medical Equipment None Reported. Allergies Allergen ID Allergen Name Allergen Category Reaction Reaction Severity Criticality Documentation Date Start Date Code Code System Note Provider Name and Address Organization Details Recorded Time Product containin g penicilli n (product) medicatio n rash Not available Not available 04/24/2015 92372 8001 SNOMED ElviaJULISA Mauro in [facility], 5 14:09:24 Requip medicatio n rash Not available Not available 04/24/2015 20857 1 RxNorm Elvia JULISA Cross in [facility], 5 14:09:24 Medications Name Sig Start [...] Details Last Updated DateTime 10/12/2015 165.1 cm 434960.5 33027 g 37.6 kg/m2 64 /min 116/72 mm[Hg] Elvia Almanzar [place] [facility], 10/12/2015 15:34:21 Date Recorded Body height Body weight Body mass index (BMI) Heart rate Systolic And Diastolic Provider Name and Address Organization Details Last Updated DateTime 11/18/2016 165.1 cm 589365.9 4 g 37 kg/m2 71 /min 126/74 mm[Hg] Elvia De La Vega in [facility], 11/18/2016 15:41:37 Date Recorded Body height Heart rate Body weight Body mass index (BMI) Body temperature Systolic And Diastolic Provider Name and Address Organization Details Last Updated DateTime 6 165.1 cm 59 /min 86487.7 3 g 36.4 kg/m2 98.2 [degF] 115/61 mm[Hg] Andree De La Vega in [facility], 6 13:31:14 Date Recorded Body height Body mass index (BMI) Heart rate Body weight Systolic And Diastolic Provider Name and Address Organization Details Last Updated DateTime 04/24/2015 165.1 cm 38.5 kg/m2 64 /min 057869.2 53876 g 111/59 mm[Hg] Elvia De La Vega in [facility], 04/24/2015 14:09:24 Date Recorded Body height Body mass index (BMI) Body weight Provider Name and Address Organization Details Last Updated DateTime 07/17/2015 165.1 cm 38.4 kg/m2 809702.9478 22 g Andree De La Vega in [facility], 07/17/2015 14:37:37 Date Recorded Heart rate Systolic And Diastolic Provider Name and Address Organization Details Last Updated DateTime 07/17/2015 62 /min 122/65 mm[Hg] Elvia Torrez sociates in [facility], 07/17/2015 14:48:54 Social History Question Answer Notes LastModified by Organizat ion Details LastModified Time Tobacco Smoking Status Never Smoker Not Available [employer] 06/30/2020 03:19:40 What Is Your Level Of Caffeine Consumption? Occasional [id number] Information not available 06/30/2020 What Type Of Diet Are You Following? REGULAR [id number] Information not available 06/30/2020 Which Illicit Or Recreational Drugs Have You Used? No [id number] Information not available 06/30/2020 Do You Reside In Or Have You Traveled To An Area Where Ebola Virus Transmission Is Active? No [id number] Information not available 06/30/2020 Education 12 Information [...] available 04/24/2015 Are You Sexually Active? Yes [id number] Information not available 06/30/2020 How Much Tobacco Do You Smoke? No [id number] Information not available 06/30/2020 General Stress Level Medium Information not available 10/12/2015 Have You Recently (within The Last 12 Weeks, Or During A Current ) Traveled To Or Lived In A Zika-affected Area? No Information not available 04/15/2016 Sex: Unknown Functional Status Question Answer Note LastModified by Organizat ion Details LastModified Time What is your level of alcohol consumption? 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 Occasional [id number] Information not available 06/30/2020 Mental Status None [...] or Bladder Problems Y Thyroid Problems N Depression Y Lung Disease N GI Problems Y Defects or Inherited Disease N History [...] ICD10 Code Diagnosis IMO Codes Diagnosis Note [id number] MD CONCEPCION Ortiz MD [address] [place] [address],[address] [address] 04/24/2015 13:33:01 04/24/2015 15:51:14 Dyspareunia 56850899 Atrophic vaginitis 95478242 28013 MD CONCEPCION Ortiz MD [address] [place] [address] 07/17/2015 14:32:27 07/17/2015 15:35:48 Candidal vulvovaginitis 12449447 B37.3 Atrophic vaginitis 61232 000 N95.2 [id number] MD CONCEPCION Ortiz MD [address] [place] [address] 10/12/2015 15:24:49 10/12/2015 16:05:10 Specialized medical examination 10623379 Z01.419 Screening for malignant neoplasm of rectum 561517426 Z12.12 Screening mammography 24 933246 Z12.31 [id number] MD CONCEPCION Ortiz MD [address] [place], [place] [address] [address] [place] [address] 04/15/2016 13:20:40 04/15/2016 14:43:12 Acute lower urinary tract infection 991034407 R30.0 Candidal vulvovaginitis 69776770 B37.3 [id number] MD CONCEPCION Ortiz MD [address] [place] [address] 11/18/2016 15:35:57 11/21/2016 08:41:06 Specialized medical examination 86143321 Z01.419 Screening for malignant neoplasm of rectum 846588632 Z12.12 Screening mammography 24 700380 Z12.31 Atrophic vaginitis 39128 000 N95.2 Candidal vulvovaginitis 47147461 B37.3 Health Concerns Section Related Observation LastModified by Organization Detai ls LastModified Time None Recorded Concern Status LastModified by Organization Details LastModified Time None Recorded Advance Directives Directive None Recorded Payers Insurance Date Sequence Insurance Name Policy Number Policy Cha Covered Member ID Cha Member ID Guarantor Name 11/21/[address] [place] [address] [id number] Augusta Daudelin [id number] Augusta Daudelin Notes Date Note Type Note Provider Name and Address Organization Details Recorded Time 04/24/2015 text/html ROS as noted in the HPI Concepcion Carrera MD [address], [place], [address], [place] - [facility], 04/24/2015 15:07:42 07/17/2015 text/html ROS as noted in the HPI Concepcion Carrera MD [address], [place], [address], [place] - [facility], 07/17/2015 15:09:55 10/12/2015 text/html ROS as noted in the HPI Concepcion Carrera MD [address], [place], [address], [place] - [facility], 10/12/2015 15:55:58 04/15/2016 text/html She went to [facility] and has been on an antibiotic for 4 days, and complains of vaginal burning to the point it hurts to sit. Concepcion Carrera MD [address], [place], [address], [place] - [facility], 04/15/2016 14:10:23 11/18/2016 text/html She is here for annual exam, is doing well. She notes a good improvement with the E2 vaginal cream. She is using mucinex and antibiotics for a sinus infection now. Concepcion Carrera MD [address], [place], [address], [place] - [facility], 11/18/2016 16:23:34 OBGyn Episode No OBEpisode recorded.
== END 2025-06-19 06:18 | disposition home or self-care (01) ==
LOC: CF 06:17
PROVIDERS: Visit Provider Internal Medicine
DX: M53.3 Sacrococcygeal disorders, not elsewhere classified (principal); M47.817 Spondylosis without myelopathy or radiculopathy, lumbosacral region
CPT/HCPCS: 27096; J2003; J2795; J3301

== ENCOUNTER 2025-06-19 09:39 | Outpatient (AMB) | payer MEDICARE, SELFPAY ==
[2025-06-19 10:30] VITALS: BP 122/90; PULSE 70; RESP 16; O2SAT 97
--- NOTE | 2025-06-19 10:30 | MHC.OFFVIS ---
Vital Signs 06/19/25 10:30 06/19/25 10:59 BP 122/90 H 126/78 Blood Pressure Location Lt brachial Lt brachial Position Sitting Sitting Respiration 16 16 Pulse 70 70 Pulse Source Pulse Oximeter Pulse Oximeter Pulse Oximetry (%) 97 98 Oxygen Delivery Method Room Air Room Air Intake Visit Reasons: Right Therapeutic SIJ injection/ Ativan Accompanied by: Spouse Allergies ciprofloxacin (From CIPRO) Allergy (Intermediate, Verified 06/19/25 10:31) RASH Penicillins (PENICILLINS) Allergy (Intermediate, Verified 06/19/25 10:31) RASH ropinirole (From REQUIP) Allergy (Intermediate, Verified 06/19/25 10:31) RASH sulfamethoxazole (From BACTRIM) Allergy (Intermediate, Verified 06/19/25 10:31) RASH Medication List - Last Reconciled 06/19/25 by Heydi Mendosa LPN acetaminophen ER (Tylenol 8 Hour) 650 mg PO Q8H PRN albuterol sulfate 5 mg inhalation Q6H PRN baclofen 10 mg PO BEDTIME bisacodyl (Dulcolax (bisacodyl)) 10 mg (2 x 5 mg) PO BEDTIME budesonide-formoterol 80-4.5 mcg/actuation (Symbicort) 2 puffs inhalation BID carboxymethylcellulose sodium 0.5% (Refresh Tears) 1 drp ophthalmic (eye) BID cholecalciferol (vitamin D3) 25 mcg PO DAILY cyclosporine 0.05% (Restasis) drps ophthalmic (eye) BID ibuprofen-diphenhydramine cit 200-38 mg (Motrin PM) 2 caps PO BEDTIME PRN levothyroxine (Levo-T) 50 mcg PO DAILY melatonin 5 mg PO BEDTIME meloxicam 15 mg PO DAILY polyethylene glycol 3350 (Miralax) 238 grams PO ONCE HPI HPI Right Therapeutic SIJ injection/ Ativan: Details: Patient presents for scheduled procedure. Denies any recent cough, cold, infection, fever or other significant changes in medical history since last office visit. [facility]LY [facility] Medical History Asthma Hyperglycemia Lumbar pain Shoulder pain, bilateral Vertigo (~12/21/23) Obesity Depression Annual physical exam Hypothyroid Hyperlipidemia Abdominal wall hernia Fibromyalgia Neck pain Postoperative abdominal hernia Chronic asthma History of mammogram Surgical History History of cholecystectomy (03/10/15) History of varicose vein stripping (01/2016) History of foot surgery (2011) History of removal of laparoscopic gastric banding device (2010) History of hernia repair (2017) Hx of laparoscopic gastric banding (07/2008) History of total hysterectomy (08/2002) H/O oophorectomy H/O: hysterectomy (1987) H/O colonoscopy Family History Mother History of rheumatoid arthritis History of diabetes mellitus, type II Father History of stomach cancer History of cirrhosis of liver Mental health disorder Social History Housing: House Alcohol intake: current Alcohol intake frequency: holidays/special occasions only Patient Tobacco Use Status: Never used Tobacco e-Cigarette/Vaping Use: Never Used Second Hand Smoke Exposure: No service: No Current occupational status: unemployed Current occupation: Left Handed Current occupational exposures/hazards: No Cognitive needs: No Hearing needs: No Vision needs: Yes Physical Exam Vital Signs: Last Vital Signs Pulse 70 06/19/25 10:30 Resp 16 06/19/25 10:30 BP 122/90 H 06/19/25 10:30 Pulse Ox 97 06/19/25 10:30 Oxygen Delivery Method Room Air 06/19/25 10:30 Office Procedures AMB Joint Injection/Aspiration Joint Injection/Aspiration Details: Sacroiliac Joint Injection, Right The procedure, its benefits, and its risks were explained and written informed consent was obtained from the patient. Immediately prior to starting the procedure, a time-out safety check was conducted. The patient's identification, procedure name, procedure site, and procedure laterality were confirmed with the patient. ? Patient was placed prone on the fluoroscopy table and the lumbosacral area was prepped using ChloraPrep and draped with sterile draped in standard fashion. The C-arm was rotated in a contralateral oblique fashion until the medial border of the iliac crest no longer foreshadowed the posterior sacroiliac joint line. The skin and subcutaneous tissue was anesthetized using 1 mL of 0.75% plain lidocaine with 1.5-inch 25-gauge needle in the middle region of the joint line.? A 3.5-inch 22-gauge spinal needle with small bend on the tip was slowly advanced towards the joint line, coaxial to the x-ray beam. Once bony content was obtained, the needle was easily slid into the intra-articular space.? Intra-articular needle position was confirmed using lateral fluoroscopy.? A total volume of 2.5mL of solution containing 40 mg trimcinilone and rest 0.5% of ropivacaine was injected intra-articularly. The stylet was reinserted and needle was removed. The patient tolerated the procedure well. Patient denied any lower extremity weakness or numbness. Patient was observed for 30 min and was discharged after fulfilling the standard discharge criteria. Coding 22890 - Sacroiliac Procedure code (CPT) selection complete Assessment & Plan Assessment & Plan (1) Sacroiliac joint pain: Code(s): M53.3 - Sacrococcygeal disorders, not elsewhere classified Category: Medical Plan Patient is status post right therapeutic sacroiliac joint injection. Patient tolerated procedure well and was discharged home in stable condition with discharge instructions. All questions were answered. We will follow-up via telephone or in clinic to assess response to therapy. A follow-up appointment was made during today's visit. Orders: Orders FL guidance in treatment room Today Mary Lou Anderson APRN, [employer] M53.3 - Sacrococcygeal disorders, not elsewhere classified AMB Joint Injection/Aspiration Today Manoj Curtis MD M47.817 - Spondylosis without myelopathy or radiculopathy, lumbosacral region, M53.3 - Sacrococcygeal disorders, not elsewhere classified Coding Level of Care Code Procedure Only Diagnoses Sacroiliac joint pain M53.3 CPT Codes Coding - Joint 9: 49544 - Sacroiliac ([id number])
[2025-06-19 10:59] VITALS: BP 126/78; PULSE 70; RESP 16; O2SAT 98
== END 2025-06-19 11:05 | disposition home or self-care (01) ==
LOC: HO.PMCPRC 09:39
PROVIDERS: PCP Internal Medicine; Visit Provider Internal Medicine
DX: M53.3 Sacrococcygeal disorders, not elsewhere classified (principal)
CPT/HCPCS: 27096

== ENCOUNTER 2025-07-17 13:32 | Outpatient (AMB) | payer MEDICARE, SELFPAY ==
--- NOTE | 2025-07-17 13:35 | A.OFFVIS_ITS ---
Vital Signs 07/17/25 13:38 Height 5 ft 5 in Weight 216 lb 4 oz BMI 36.0 BP 143/78 H Blood Pressure Location Rt brachial Position Sitting Pulse 73 Pulse Source Pulse Oximeter Pulse Oximetry (%) 99 Oxygen Delivery Method Room Air Intake Visit Reasons: S/P Right Therapeutic SIJ injection Intake Note: Pain today 10 [employer] Required: No Accompanied by: Family/Other Allergies ciprofloxacin (From CIPRO) Allergy (Intermediate, Verified 07/17/25 13:39) RASH Penicillins (PENICILLINS) Allergy (Intermediate, Verified 07/17/25 13:39) RASH ropinirole (From REQUIP) Allergy (Intermediate, Verified 07/17/25 13:39) RASH sulfamethoxazole (From BACTRIM) Allergy (Intermediate, Verified 07/17/25 13:39) RASH HPI Comments Details: The patient is a 59 year old individual presenting for follow-up status post a therapeutic sacroiliac joint injection on June 19. The patient has a history of chronic low back pain, which was exacerbated after a fall last June where the patient landed on the right buttock and tailbone. Prior to the injection, the patient experienced constant pain, including sharp pain when standing up and bending over, with a baseline pain level of 6-7/10. Pain is significantly improved since the SI joint injection; it is no longer constant. Pain is triggered by bending over and leaning back partially while seated and less in right buttock. She reports better functioning, mobility and sleep. Past medical history is also significant for fibromyalgia, anxiety, depression, and multiple unspecified surgeries. Past Procedures: 06/19/25: Right therapeutic SI Joint injection-70% ongoing pain relief PRIOR: The patient is a 59-year-old female presenting with back pain. The back pain began in June of the previous year following a fall at [employer] due to a slippery floor, where she fell backward onto her tailbone on the right side. Initially, she experienced difficulty walking and applied ice and heat at home, which provided minimal relief. The pain is described as stabbing and burning, with occasional shooting and aching sensations, primarily located on the right side of the lower back and radiating to the right leg, but not below the knee. The pain is exacerbated by bending, lifting, walking, prolonged sitting, changing positions and is rated as a constant 6/10 in severity. The patient has attempted various pain management strategies, including physical therapy, which was discontinued after 8 sessions due to lack of progress. She has also tried [id number]-nql-miuyzav medications such as Pamprin, Tylenol, and Aleve, with Pamprin providing some relief. The patient has a history of fibromyalgia, for which she takes Pamprin and Tylenol. She also has a history of anxiety and depression, previously managed with talk therapy, and multiple surgeries including gallbladder removal, varicose vein stripping, foot surgery, laparoscopic gastric banding, hysterectomy, and oophorectomy. - Onset: Began in June 2024 after a fall at [employer] - Quality: Stabbing, burning, throbbing, sharp, pinching, pulling, hurting, tight, radiating, occasional shooting and aching - Location: Right side of lower back, radiating to right leg, not below the knee - Exacerbating factors: Bending, lifting, walking, prolonged sitting, changing positions - Severity: Constant, rated 6/10 - Affect: Anxiety and depression, previously managed with talk therapy - Analgesia: Pamprin provides some relief; Tylenol and Aleve were ineffective - Activities of Daily Living: Pain affects ability to bend, lift, walk, and sit for prolonged periods Oswestry Low Back Pain Disability Score=28 [facility] Medical History Asthma Hyperglycemia Lumbar pain Shoulder pain, bilateral Vertigo (~12/21/23) Obesity Depression Annual physical exam Hypothyroid Hyperlipidemia Abdominal wall hernia Fibromyalgia Neck pain Postoperative abdominal hernia Chronic asthma History of mammogram Surgical History History of cholecystectomy (03/10/15) History of varicose vein stripping (01/2016) History of foot surgery (2011) History of removal of laparoscopic gastric banding device (2010) History of hernia repair (2017) Hx of laparoscopic gastric banding (07/2008) History of total hysterectomy (08/2002) H/O oophorectomy H/O: hysterectomy (1987) H/O colonoscopy Family History Mother History of rheumatoid arthritis History of diabetes mellitus, type II Father History of stomach cancer History of cirrhosis of liver Mental health disorder Social History (Reviewed 07/17/25 @ 13:42 by DONALD Dasilva Housing: House Alcohol intake: current Alcohol intake frequency: holidays/special occasions only Patient Tobacco Use Status: Never used Tobacco e-Cigarette/Vaping Use: Never Used Second Hand Smoke Exposure: No service: No Current occupational status: unemployed Current occupation: Left Handed Current occupational exposures/hazards: No Cognitive needs: No Hearing needs: No Vision needs: Yes Review of Systems Const All systems reviewed & are unremarkable except as noted in HPI and below Physical Exam Vital Signs: Last Vital Signs Pulse 73 07/17/25 13:38 BP 143/78 H 07/17/25 13:38 Pulse Ox 99 07/17/25 13:38 Oxygen Delivery Method Room Air 07/17/25 13:38 BMI result Body Mass Index 36.0 General: Appears afebrile. Alert and oriented. Mood and affect appropriate. Follows and participates in conversation appropriately. Respiratory effort is unlabored. No cough. Able to transition from sit to stand unassisted. Ambulates with bilaterally normal heel strike and toe off. General: Yes no CVA tenderness Back/Spine/Pelvis Other: Limited lumbar ROM due to pain. Lumbar flexion and extension reproduces mild to moderate pain. Demonstrates 5/5 strength of quadriceps bilaterally as well as flexion/dorsiflexion of bilateral feet against resistance. 2+ pedal pulses bilaterally. Straight leg rise with dorsiflexion negative bilaterally. +2 patellar and +1 achilles reflexes bilaterally. Facet loading test positive bilaterally. No groin pain with I/E hip rotations. Valsalva maneuver negative. Back: no CVA tenderness Cervical Spine: cervical ROM normal and No Cervical spine tenderness Thoracic/Lumbar Spine: thoracic and lumbar spine normal to inspection, No Thoracic/lumbar spine scar(s), Lasegue's sign negative, straight leg raise negative bilaterally, pain with thoraco-lumbar ROM, thoraco-lumbar ROM limited, No thoracic spinal tenderness and lumbar spinal tenderness (L4-S1) Sacroiliac joints: on the right tender to palpation (mild TTP) and on the left nontender Extrem General: Yes capillary refill normal, Yes no clubbing, cyanosis or edema and Yes no calf tenderness Results Reviewed Results Reviewed: XR LUMBAR SPINE 2-3 VIEWS, XR SACROILIAC JOINT 1-2 VIEWS 01/16/25 HISTORY: M54.5 - Low back pain COMPARISON: Comparison is made with the prior examination of the lumbar spine dated 03/04/2021. FINDINGS: AP, lateral, and coned down views of the lumbar spine and 3 additional views of the bilateral sacroiliac joints are submitted. Osseous mineralization is normal. There is mild levoscoliosis. The vertebral bodies maintain normal height without evidence of fracture or spondylolisthesis. There is mild degenerative disc disease with anterior spurring. The intervertebral disc spaces are maintained. The bilateral sacroiliac joints are maintained. No erosions are seen. IMPRESSION: 1. Mild levoscoliosis. Mild degenerative disc disease of the lumbar spine. 2. Unremarkable examination of the bilateral sacroiliac joints. Assessment & Plan Assessment & Plan (1) Lower back pain: Code(s): M54.50 - Low back pain, unspecified Category: Medical (2) Sacroiliac joint pain: Code(s): M53.3 - Sacrococcygeal disorders, not elsewhere classified Category: Medical (3) Lumbosacral spondylosis: Code(s): M47.817 - Spondylosis without myelopathy or radiculopathy, lumbosacral region Category: Medical (4) Fibromyalgia: Code(s): M79.7 - Fibromyalgia Category: Medical Plan The patient has experienced approximately 70% long-term pain relief from the right sacroiliac joint injection. Current pain level is 3/10. However, the patient reports pain provocation with leaning backwards and axial rotations, which suggests a component of facet arthropathy rather than purely SI joint pain. Given the significant improvement, a conservative approach is adopted for now. If the pain returns to its baseline of 6-7/10 or higher, options for further intervention were discussed. One option would be to repeat the same therapeutic SI joint injection end-August or thereafter. Alternatively, given the symptoms of facetogenic pain, the plan includes exploring diagnostic lumbar medial branch blocks on the right side. This non-steroidal diagnostic procedure would help determine if the patient is a candidate for other treatments such as radiofrequency ablation or a temporary peripheral neurostimulator. Encouraged lifestyle modifications to include regular physical activity and home exercise, gentle stretching exercises, adequate hydration, weight optimization and weight loss. The patient is advised to follow-up as needed and to contact the office if symptoms worsen or return to baseline. Patient was informed and verbally consented to the use of an ambient scribe for clinic note documentation during this visit. Coding Level of Care Code Est Pt Level 3 (73206) Diagnoses Lower back pain M54.50 Sacroiliac joint pain M53.3 Lumbosacral spondylosis M47.817 Fibromyalgia M79.7
[2025-07-17 13:38] VITALS: BP 143/78; PULSE 73; O2SAT 99; BMI 36.0
--- OUTSIDE RECORDS SUMMARY | 2025-07-17 18:59 | XMS_ITS | Data Portability ---
Author Organization [place] - [facility],, CONCEPCION CARRERA MD Address [address] [place] [address] Care Team Providers Care Unix Architect Name Role Phone ARANZA CRESPO Primary Care Provider [phone] Assessment No assessment recorded. Plan of Treatment Reminders Order Date Submit Date Provider Last Modified By Organization Details Last Modified Time Details Appointments None recorded. Lab pap test, thinprep, cervical 2016 017 [facility], Cytopathology Service, [address] [facility], [place], [address], 7 12:28:01 wet mount, vaginal 2016 017 [email or web address] 1 In-Office Order, Internal Use Only DO Not Attach Compendium DO Not Attach Compendium, Do Not Delete/merge, [id number] 7 16:22:09 fecal occult blood, stool 2016 017 [email or web address] 1 In-Office Order, Internal Use Only DO Not Attach Compendium DO Not Attach Compendium, Do Not Delete/merge, [id number] 7 16:21:41 urinalysi s, dipstick 2015 016 [id number] In-Office Order, Internal Use Only DO Not Attach Compendium DO Not Attach Compendium, Do Not Delete/merge, [id number] 6 04:20:31 wet mount, vaginal 2015 016 [id number] In-Office Order, Internal Use Only DO Not Attach Compendium DO Not Attach Compendium, Do Not Delete/merge, [id number] 6 04:20:31 pap, LB, vaginal 2015 016 [facility], Cytopathology Service, [address] [place], [address], 6 11:46:12 fecal occult blood, stool 2015 016 [email or web address] 1 In-Office Order, Internal Use Only DO Not Attach Compendium DO Not Attach Compendium, Do Not Delete/merge, [id number] 6 15:46:50 wet mount, vaginal 2014 015 GABO In-Office Order, Internal Use Only DO Not Attach Compendium DO Not Attach Compendium, Do Not Delete/merge, [id number] 5 15:09:09 Referral None recorded. Procedures None recorded. Surgeries None recorded. Imaging MAMMO, screening , digital, bilateral 2016 017 [facility], [address] [facility], [place], [address], 8 08:24:00 MAMMO, screening , digital, bilateral 2015 016 [facility] [address] [place], [address], 7 09:06:47 Medication Orders Estrace 0.01% (0.1 mg/gram) vaginal cream 2016 017 [email or web address] 1 [facility], [address] [place], [address], 7 16:21:41 fluconazo le 150 mg tablet 2016 017 INTERFACE [facility], [address] [place], [address], 7 16:21:56 fluconazo le 150 mg tablet 2015 016 [email or web address] [facility], [address] [place], [address], 7 15:37:10 Estrace 0.01% (0.1 mg/gram) vaginal cream 2014 015 [email or web address] 1 [facility], [address] [place], [address], 5 15:07:27 fluconazo le 150 mg tablet 2014 015 [email or web address] [facility], [address] [place], [address], 7 15:37:10 Estrace 0.01% (0.1 mg/gram) vaginal cream 2014 015 [email or web address] 1 [facility], [address] [place], [address], 5 15:07:31 Patient TargetsNo targets recorded. Patient Instructions Encounter Date Encounter Id Patient Instructions Last Modified By Organization Details Last Modified Time 04/24/2015 [id number] atrophic vaginit is: care instructions [email or web address] Not available 04/24/2015 15:40:54 She is here as a new patient for a complaint of dyspareunia and vaginal dryness. She had a LAVHRSO [id number] for fibroids. She had surgery at age 23 for cysts on the ovary 25 pounds of cysts and LSO was done. She was taking ERT for 6 months after surgery, but then was advised to stop. She has not had any hormones since 2004, 11 years. She had an annual field handyman with pap with Dr. Flores in 08/2014. [...] see how she is doing and discuss residential usage of the E2 cram. RX and 2 free samples given, Estrace cream. Face to face discussion 45 minutes Not available 04/24/2015 15:07:31 07/17/2015 [id number] vaginal yeast infection: care instructions [email or web address] Not [...] E2 cream. Not available 07/17/2015 15:07:27 10/12/2015 [id number] She is here for annual exam, is [...] in detail. Not available 10/12/2015 15:46:50 04/15/2016 [id number] vaginal yeast infection: care instructions [id number] Not available 08/13/2016 04:20:31 She went to [facility] and has been on an antibiotic for 4 days, and complains of vaginal burning to the point it hurts to sit. she has a monilia vaginitis. The antibiotics are finished today. Urine dip is negative. RX Diflucan, call if symptoms persist or worsen, possible side effects discussed. Not available 04/15/2016 14:10:00 11/18/2016 [id number] atrophic vaginit is: care instructions Not available [...] standardized exercise regimen, such as that at [employer], and she is given literature for this. We discussed a referral to a aurist and/or weight management developer. All questions were answered. She mohinder think [...] DO Not Attach Compendium, Do Not Delete/merge, [id number] 11/18/2016 16:21:40 11/19/19 17 11/18/2016 ronnie ulloa Trichomonas negati ve Not Available In-Office Order Internal Use Only DO Not Attach Compendium DO Not Attach Compendium, Do Not Delete/merge, [id number] 11/18/2016 16:21:40 11/19/19 17 11/18/2016 wet mount , vagin al Hyphae positi ve Not Available In-Office Order Internal Use Only DO Not Attach Compendium DO Not Attach Compendium, Do Not Delete/merge, [id number] 11/18/2016 16:21:40 11/19/19 17 11/18/2016 wet mount , vagin al atrophic epithelium positi ve Not Available In-Office Order Internal Use Only DO Not Attach Compendium DO Not Attach Compendium, Do Not Delete/merge, [facility] 11/18/2016 16:21:40 11/19/19 17 11/18/2016 fecal occul t blood , stool Occult Blood negati ve Not Available In-Office Order Internal Use Only DO Not Attach Compendium DO Not Attach Compendium, Do Not Delete/merge, [facility] 11/18/2016 15:45:14 04/15/20 16 04/15/2016 wet mount , vagin al Clue Cells negati ve Not Available In-Office Order Internal Use Only DO Not Attach Compendium DO Not Attach Compendium, Do Not Delete/merge, [facility] 04/15/2016 13:46:05 04/15/20 16 04/15/2016 wet mount , vagin al Trichomonas negati ve Not Available In-Office Order Internal Use Only DO Not Attach Compendium DO Not Attach Compendium, Do Not Delete/merge, [facility] 04/15/2016 13:46:05 04/15/20 16 04/15/2016 wet mount , vagin al Hyphae positi ve Not Available In-Office Order Internal Use Only DO Not Attach Compendium DO Not Attach Compendium, Do Not Delete/merge, [facility] 04/15/2016 13:46:05 04/15/20 16 04/15/2016 wet mount , vagin al atrophic epithelium positi ve Not Available In-Office Order Internal Use Only DO Not Attach Compendium DO Not Attach Compendium, Do Not Delete/merge, [facility] 04/15/2016 13:46:05 04/15/20 16 04/15/2016 urina lysis , dipst ick GLU Negati ve Not Available In-Office Order Internal Use Only DO Not Attach Compendium DO Not Attach Compendium, Do Not Delete/merge, [facility] 04/15/2016 13:32:33 04/15/20 16 04/15/2016 urina lysis , dipst ick RAJEEV Negati ve Not Available In-Office Order Internal Use Only DO Not Attach Compendium DO Not Attach Compendium, Do Not Delete/merge, [facility] 04/15/2016 13:32:33 04/15/20 16 04/15/2016 urina lysis , dipst ick KET Large (160) Not Available In-Office Order Internal Use Only DO Not Attach Compendium DO Not Attach Compendium, Do Not Delete/merge, [facility] 04/15/2016 13:32:33 04/15/20 16 04/15/2016 urina lysis , dipst ick SG 1.020 Not Available In-Office Order Internal Use Only DO Not Attach Compendium DO Not Attach Compendium, Do Not Delete/merge, [facility] 04/15/2016 13:32:33 04/15/2004/15/2016 urina lysis , dipst ick BLO Hemoly zed : Trace Not Available In-Office Order Internal Use Only DO Not Attach Compendium DO Not Attach Compendium, Do Not Delete/merge, [facility] 04/15/2016 13:32:33 04/15/2004/15/2016 urina lysis , dipst ick pH 7.0 Not Available In-Office Order Internal Use Only DO Not Attach Compendium DO Not Attach Compendium, Do Not Delete/merge, [facility] 04/15/2016 13:32:33 04/15/20 16 04/15/2016 urina lysis , dipst ick PRO Negati ve Not Available In-Office Order Internal Use Only DO Not Attach Compendium DO Not Attach Compendium, Do Not Delete/merge, [facility] 04/15/2016 13:32:33 04/15/20 16 04/15/2016 urina lysis , dipst ick URO 0.2 E.U. / dl Not Available In-Office Order Internal Use Only DO Not Attach Compendium DO Not Attach Compendium, Do Not Delete/merge, [facility] 04/15/2016 13:32:33 04/15/20 16 04/15/2016 urina lysis , dipst ick NIT negati ve Not Available In-Office Order Internal Use Only DO Not Attach Compendium DO Not Attach Compendium, Do Not Delete/merge, [id number] 04/15/2016 13:32:33 04/15/20 16 04/15/2016 urina lysis , dipst ick AGUEDA Negati ve Not Available In-Office Order Internal Use Only DO Not Attach Compendium DO Not Attach Compendium, Do Not Delete/merge, [id number] 04/15/2016 13:32:33 10/12/19 16 10/12/2015 fecal occul t blood , stool Occult Blood negati ve Not Available In-Office Order Internal Use Only DO Not Attach Compendium DO Not Attach Compendium, Do Not Delete/merge, [id number] 10/12/2015 15:35:52 07/17/20 15 07/17/2015 wet mount , vagin al Clue Cells negati ve Not Available In-Office Order Internal Use Only DO Not Attach Compendium DO Not Attach Compendium, Do Not Delete/merge, [id number] 07/17/2015 14:46:36 07/17/20 15 07/17/2015 wet mount , vagin al Trichomonas negati ve Not Available In-Office Order Internal Use Only DO Not Attach Compendium DO Not Attach Compendium, Do Not Delete/merge, [id number] 07/17/2015 14:46:36 07/17/20 15 07/17/2015 wet mount , vagin al Hyphae positi ve Not Available In-Office Order Internal Use Only DO Not Attach Compendium DO Not Attach Compendium, Do Not Delete/merge, [id number] 07/17/2015 14:46:36 07/17/20 15 07/17/2015 wet mount , vagin al atrophic epithelium positi ve Not Available In-Office Order Internal Use Only DO Not Attach Compendium DO Not Attach Compendium, Do Not Delete/merge, [id number] 07/17/2015 14:46:36 10/12/19 16 10/12/2015 pap, LB [email or web address] ThinP rep Pap, Image d: NEGAT YOVANI [...] at the above addre ss. Not Available [facility], Cytopathology Service [address] [place], [address], 10/14/2015 11:46:12 11/19/19 17 11/18/2016 pap, LB [id number] ThinP rep Pap, Image d: NEGAT YOVANI [...] . LAST PAP MENOP AUSE Not Available [facility], Cytopathology Service [address] [place], [address], 11/21/2016 12:28:01 Result Notes None recorded. Problems Name Problem SNOMED Code Status Onset Date Resolution Date Notes Provider Name and Address Organization Details Recorded Time Dyspareunia 99340153 Active Concepcion Carrera MD [address], [place], [address], [place] - [facility], 6 15:45:26 Complicated ovarian cyst Active 2002, 25 pounds of contents , benign Concepcion Carrera MD [address], [place], [address], [place] - [facility], 6 15:45:26 Atrophic vaginitis 54245047 Active Concepcion Carrera MD [address], [place], [address], [place] - [facility], 6 15:45:26 Diverticulit is 042257411 Active had surgery 08/2014 Concepcion Carrera MD [address], [place], [address], [place] - [facility], 6 15:45:26 Candidal vulvovaginit is 30155707 Active Concepcion Carrera MD [address], [place], [address], [place] - [facility], 6 15:45:26 Problem Notes None recorded. Procedures Surgical History Date Name Laterality Status Provider Name and Address Organization Details Recorded Time 03/28/20 16 Other completed Elvia Mecelijahwor [place] - [facility], 11/18/2016 15:43:23 08/28/19 15 Cholecystectomy completed Elvia Mecisabellor [place] - [facility], 04/24/2015 14:09:23 08/28/19 15 Other completed Concepcion Carrera MD [address], [place], [address], [place] - [facility], 07/17/2015 14:43:51 08/28/19 12 Other completed Elvia Meczywor [place] - [facility], 04/24/2015 14:09:23 08/28/19 11 Other completed Elvia Meczioanawor [place] - [facility], 04/24/2015 14:09:23 08/28/19 08 Other completed Elvia Meczywor [place] [facility], 10/12/2015 15:34:20 08/28/19 03 Total Abdominal Hysterectomy completed Concepcion Carrera MD [address], [place], [address], [place] - [facility], 04/24/2015 14:41:55 08/28/18 88 Removal of ovary/tube(s) completed Concepcion Carrera MD [address], [place], [address], [place] - [facility], 04/24/2015 14:41:55 Imaging Results None recorded. Procedure Notes None recorded. Medical Equipment None Reported. Allergies Allergen ID Allergen Name Allergen Category Reaction Reaction Severity Criticality Documentation Date Start Date Code Code System Note Provider Name and Address Organization Details Recorded Time Product containin g penicilli n (product) medicatio n rash Not available Not available 04/24/2015 20798 8001 SNOMED ElviaUJLISA Mauro in [facility], 5 14:09:24 Requip medicatio n rash Not available Not available 04/24/2015 16010 1 RxNorm JULISA Ross in [facility], 5 14:09:24 Medications Name Sig Start Date [...] Details Last Updated DateTime 10/12/2015 165.1 cm 293832.5 69830 g 37.6 kg/m2 64 /min 116/72 mm[Hg] Elvia Almanzar [place] [facility], 10/12/2015 15:34:21 Date Recorded Body height Body weight Body mass index (BMI) Heart rate Systolic And Diastolic Provider Name and Address Organization Details Last Updated DateTime 11/18/2016 165.1 cm 819780.9 4 g 37 kg/m2 71 /min 126/74 mm[Hg] Elvia De La Vega in [facility], 11/18/2016 15:41:37 Date Recorded Body height Heart rate Body weight Body mass index (BMI) Body temperature Systolic And Diastolic Provider Name and Address Organization Details Last Updated DateTime 6 165.1 cm 59 /min 66917.7 3 g 36.4 kg/m2 98.2 [degF] 115/61 mm[Hg] Andree De La Vega in [facility], 6 13:31:14 Date Recorded Body height Body mass index (BMI) Heart rate Body weight Systolic And Diastolic Provider Name and Address Organization Details Last Updated DateTime 04/24/2015 165.1 cm 38.5 kg/m2 64 /min 699793.2 71015 g 111/59 mm[Hg] Elvia De La Vega in [facility], 04/24/2015 14:09:24 Date Recorded Body height Body mass index (BMI) Body weight Provider Name and Address Organization Details Last Updated DateTime 07/17/2015 165.1 cm 38.4 kg/m2 988446.6755 22 g Andree De La Vega in [facility], 07/17/2015 14:37:37 Date Recorded Heart rate Systolic And Diastolic Provider Name and Address Organization Details Last Updated DateTime 07/17/2015 62 /min 122/65 mm[Hg] Elvia Torrez sociates in [facility], 07/17/2015 14:48:54 Social History Question Answer Notes LastModified by Organizat ion Details LastModified Time Tobacco Smoking Status Never Smoker Not Available [employer] 06/30/2020 03:19:40 What Is Your Level Of Caffeine Consumption? Occasional [id number] Information not available 06/30/2020 What Type Of Diet Are You Following? REGULAR [id number] Information not available 06/30/2020 Which Illicit Or Recreational Drugs Have You Used? No [id number] Information not available 06/30/2020 Do You Reside In Or Have You Traveled To An Area Where Ebola Virus Transmission Is Active? No [id number] Information not available 06/30/2020 Education 12 Information [...] available 04/24/2015 Are You Sexually Active? Yes [id number] Information not available 06/30/2020 How Much Tobacco Do You Smoke? No [id number] Information not available 06/30/2020 General Stress Level Medium Information not available 10/12/2015 Have You Recently (within The Last 12 Weeks, Or During A Current ) Traveled To Or Lived In A Zika-affected Area? No Information not available 04/15/2016 Sex: Unknown Functional Status Question Answer Note LastModified by Organizat ion Details LastModified Time What is your level of alcohol consumption? 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 Occasional [id number] Information not available 06/30/2020 Mental Status None [...] Problems Y Defects or Inherited Disease N Anemia N History of Ovarian Cancer N History of Breast Cancer N BRCA [...] ICD10 Code Diagnosis IMO Codes Diagnosis Note [id number] MD CONCEPCION Ortiz MD [address] [place] [address],[address] [address] 04/24/2015 13:33:01 04/24/2015 15:51:14 Dyspareunia 06906338 Atrophic vaginitis 45816457 47499 MD CONCEPCION Ortiz MD [address] [place] [address] 07/17/2015 14:32:27 07/17/2015 15:35:48 Candidal vulvovaginitis 54610646 B37.3 Atrophic vaginitis 62607 000 N95.2 [id number] MD CONCEPCION Ortiz MD [address] [place] [address] 10/12/2015 15:24:49 10/12/2015 16:05:10 Specialized medical examination 08007100 Z01.419 Screening for malignant neoplasm of rectum 740073821 Z12.12 Screening mammography 24 457677 Z12.31 [id number] MD CONCEPCION Ortiz MD [address] [place], [place] [address] [address] [place] [address] 04/15/2016 13:20:40 04/15/2016 14:43:12 Acute lower urinary tract infection 127781938 R30.0 Candidal vulvovaginitis 52755747 B37.3 [id number] MD CONCEPCION Ortiz MD [address] [place] [address] 11/18/2016 15:35:57 11/21/2016 08:41:06 Specialized medical examination 09767666 Z01.419 Screening for malignant neoplasm of rectum 688402716 Z12.12 Screening mammography 24 292944 Z12.31 Atrophic vaginitis 72458 000 N95.2 Candidal vulvovaginitis 11548508 B37.3 Health Concerns Section Related Observation LastModified by Organization Detai ls LastModified Time None Recorded Concern Status LastModified by Organization Details LastModified Time None Recorded Advance Directives Directive None Recorded Payers Insurance Date Sequence Insurance Name Policy Number Policy Cha Covered Member ID Cha Member ID Guarantor Name 11/21/[address] [place] [address] [id number] Augusta Daudelin [id number] Augusta Daudelin Notes Date Note Type Note Provider Name and Address Organization Details Recorded Time 04/24/2015 text/html ROS as noted in the HPI Concepcion Carrera MD [address], [place], [address], [place] - [facility], 04/24/2015 15:07:42 07/17/2015 text/html ROS as noted in the HPI Concepcion Carrera MD [address], [place], [address], [place] [facility], 07/17/2015 15:09:55 10/12/2015 text/html ROS as noted in the HPI Concepcion Carrera MD [address], [place], [address], [place] [facility], 10/12/2015 15:55:58 04/15/2016 text/html She went to [facility] and has been on an antibiotic for 4 days, and complains of vaginal burning to the point it hurts to sit. Concepcion Carrera MD [address], [place], [address], [place] - [facility], 04/15/2016 14:10:23 11/18/2016 text/html She is here for annual exam, is doing well. She notes a good improvement with the E2 vaginal cream. She is using mucinex and antibiotics for a sinus infection now. Concepcion Carrera MD [address], [place], [address], [place] [facility], 11/18/2016 16:23:34 OBGyn Episode No OBEpisode recorded.
--- OUTSIDE RECORDS SUMMARY | 2025-07-17 19:00 | XMS_ITS | Data Portability ---
Author Organization [place] [facility] Address [address] [place] [id number] Care Team Providers Care Machine Accountant Name Role Phone HARSHILARANZA BILLINGS Primary Care Provider Assessment Encounter Date Assessment [...] of this patient according to [facility]'s infection prevention protocols. [email or web address] Not available 03/06/2023 10:49:43 Plan of Treatment Reminders Order Date Submit Date Provider Last Modified By Organization Details Last Modified Time Details Appointments None recorded. Lab urinalysis , dipstick 2022 [email or web address] [facility], [address] [place] [address], [phone], 10:30:49 culture, urine 2022 023 GABO [facility] (Centralized Electronic Ordering - All Locations), Patient Can Go To The Location Of Their Choice, [id number] 06:51:16 Referral None recorded. Procedures None recorded. Surgeries None recorded. Imaging None recorded. Medication Orders None recorded. Patient TargetsNo targets recorded. Patient Instructions Encounter Date Encounter Id Patient Instructions Last Modified By Organization Details Last Modified Time 03/06/2023 [id number] BASIC INFORMATIO N Urinary tract infections(UTI) can [...] in your condition between 8am-10pm, [phone] to help navigate your care. [email or web address] Not available 03/06/2023 10:31:44 Reason for Referral None Reported. Results Created Date Observation Date Name Description Value Unit Range Abnormal Flag Note LastModifiedBy Organization Detail LastModifiedTime 03/06/2003/07/2023 URINE CULTU RE specimen description CLEAN CATCH (URINE ) Not Available [facility] (Centralized Electronic Ordering - All Locations) Patient Can Go To The Location Of Their Choice, [id number] 03/08/2023 06:51:16 03/06/2003/07/2023 URINE CULTU RE special requests NONE Not Available [facility] (Centralized Electronic Ordering - All Locations) Patient Can Go To The Location Of Their Choice, [id number] 03/08/2023 06:51:16 03/06/2003/08/2023 URINE CULTU RE culture NO GROWTH Not Available [facility] (Centralized Electronic Ordering - All Locations) Patient Can Go To The Location Of Their Choice, [id number] 03/08/2023 06:51:16 03/06/20 23 03/08/2023 URINE CULTU RE report status FINAL 2022 Not Available [facility] (Centralized Electronic Ordering - All Locations) Patient Can Go To The Location Of Their Choice, [facility] 03/08/2023 06:51:16 03/06/2003/06/2023 urina lysis , dipst ick Appearance clear Not Available [facility] [address] [place], [address], 03/06/2023 10:12:18 03/06/2003/06/2023 urina lysis , dipst ick Color yellow Not Available Spr - Home [address] [place], [address], 03/06/2023 10:12:18 03/06/20 23 03/06/2023 urina lysis , dipst ick Glucose (ref: neg) Neg Not Available [facility] - Home [address] [place], [address], 03/06/2023 10:12:18 03/06/20 23 03/06/2023 urina lysis , dipst ick Bilirubin (ref: neg) Neg Not Available [facility] - Home [address] [place], [address], 03/06/2023 10:12:18 03/06/20 23 03/06/2023 urina lysis , dipst ick Ketones (ref: neg) Neg Not Available [facility] - Home [address] [place], [address], 03/06/2023 10:12:18 03/06/20 23 03/06/2023 urina lysis , dipst ick Specific [place] (ref: 1.005 - 1.030) 1.005 Not Available [place] [address], [place], [address], 03/06/2023 10:12:18 03/06/20 23 03/06/2023 urina lysis , dipst ick Blood (ref: neg) Not Available [address] [place], [place], [address], 03/06/2023 10:12:18 03/06/20 23 03/06/2023 urina lysis , dipst ick pH (ref: 5.0-7.0) 7.5 Not Available [address] [place], [place], [address], 03/06/2023 10:12:18 03/06/20 23 03/06/2023 urina lysis , dipst ick Protein (ref: neg) Neg Not Available [address] [place], [place], [address], 03/06/2023 10:12:18 03/06/20 23 03/06/2023 urina lysis , dipst ick Urobilinogen (ref: 0.2-1) 0.2 Not Available [address] [place], [place], [address], 03/06/2023 10:12:18 03/06/20 23 03/06/2023 urina lysis , dipst ick Nitrites (ref: neg) negati ve Not Available [address] [place], [place], [address], 03/06/2023 10:12:18 03/06/2003/06/2023 urina lysis , dipst ick Leukocytes (ref: neg) Not Available [address] [place], [place], [address], 03/06/2023 10:12:18 03/06/20 23 03/06/2023 urina lysis , dipst ick [facility] [address] [place] [address], [id number] Not Available Spr - Home [address] [place], [address], 03/06/2023 10:12:18 Result Notes None recorded. Procedures Surgical History Date Name Laterality Status Provider Name and Address Organization Details Recorded Time Hernia Repair completed DEVIN Chavez [address] [place], [address], [place] [facility] 03/06/2023 10:08:09 Imaging Results None recorded. Procedure Notes None recorded. Medical Equipment None Reported. Allergies Allergen ID Allergen Name Allergen Category Reaction Reaction Severity Criticality Documentation Date Start Date Code Code System Note Provider Name and Address Organization Details Recorded Time [id number] Bactrim medicatio n Not available Not available Not available 03/06/2023 82273 9 RxNorm DEVIN Chavez [address] [place], [address], [place] [facility] 10:04:54 868351 Product containin g penicilli n (product) medicatio n Not available Not available Not available 03/06/2023 38002 8001 SNOMED DEVIN Chavez [address] [place], [address], [place] [facility] 10:05:01 157554 Cipro medicatio n Not available Not available Not available 03/06/2023 19653 3 RxNorm DEVIN Chavez [facility] [place], [address], [place] [facility] 10:05:07 [...] Vitals Date Recorded Heart rate Oxygen saturation Body temperature Respiratory rate Systolic And Diastolic Provider Name and Address Organization Details Last Updated DateTime 3 82 /min 98 % 97.7 [degF] 18 /min 130/80 mm[Hg] Not Available [facility] 10:07:48 Social History Question Answer Notes LastModified by Organizat ion Details LastModified Time Tobacco Smoking Status Never Smoker DEVIN Chavez [address] [place], [address], [place] [facility] 03/06/2023 10:07:29 Fall Risk: Do You Feel Unsteady When Standing Or Walking? No [email or web address] Information not available 03/06/2023 Excessive Alcohol Or Drug Use No Information not available 03/06/2023 Does This Patient Have A PCP? Yes [email or web address] Information not available 03/06/2023 Has The Patient Seen Their PCP In The Past 6 Months? Yes [email or web address] Information not available 03/06/2023 ADL: Do You Need Help With Daily Activities Such As Bathing, Preparing Meals, Dressing, Or Cleaning? No [email or web address] Information not available 03/06/2023 What Is Your Housing Situation Today? I Have Housing [email or web address] Information not available 03/06/2023 Sex: Unknown Functional Status Question Answer Note LastModified by Organizat ion Details LastModified Time Do you use any illicit or recreational drugs? No [email or web address] Information not available 03/06/2023 What is your level of alcohol consumption? Occasional [email or web address] Information not available 03/06/2023 Mental Status None recorded. Family History Relationship Description Onset Age of this Age Resolved Age Notes LastModified by Organization Details LastModified Time Mother Diabetes mellitus [email or web address] Not available 03/06 10:06:59 Father Cirrhosis of liver [email or web address] Not available 03/06 10:07:13 Medical History Condition Response Coronary Artery Disease N Parkinson's Disease N Depression Y COPD N Hypothyroidism Y A-fib N Diabetes N CHF [...] ICD10 Code Diagnosis IMO Codes Diagnosis Note [id number] DEVIN Chavez [facility] [address] [place] [address] 03/06/2023 10:03:54 03/09/2023 15:02:44 Dysuria 17870683 R30.0 Status of condition: Acute. Testing/Re sults: [...] dizziness, cp, sob, decreased urine output. Asthma [id number] J45.90 9 Status of condition: Chronic. Testing/Re [...] Name 03/05/2023 1 *SELF PAY* Augusta Daudelin [id number] Augusta Daudelin 03/07/2023 1 [place] Augusta Daudelin [id number] Augusta Daudelin 03/06/2023 1 [place] Augusta Daudelin [id number] Augusta Daudelin 03/09/2023 1 [place] Augusta Daudelin [id number] Augusta Daudelin 03/07/2023 1 [employer] (MEDICAID REPLACEMENT - HMO) Augusta Daudelin [id number] Augusta Daudelin 03/09/2023 1 [employer] (MEDICAID REPLACEMENT - HMO) [place] Augusta Daudelin [id number] Augusta Daudelin Notes Date Note Type Note [...] urine output. DEVIN Chavez [address], [place], [address], [place] [facility] 03/06/2023 11:09:17 OBGyn Episode No OBEpisode recorded.
== END 2025-07-17 14:45 | disposition home or self-care (01) ==
LOC: HO.PMC 13:33
PROVIDERS: PCP Internal Medicine; Visit Provider Nurse Practitioner Family
DX: M54.50 Low back pain, unspecified (principal); M53.3 Sacrococcygeal disorders, not elsewhere classified; M47.817 Spondylosis without myelopathy or radiculopathy, lumbosacral region; M79.7 Fibromyalgia
CPT/HCPCS: 99213

== ENCOUNTER → 2025-07-17 13:32 | Outpatient (BNVA) | payer MEDICARE, SELFPAY | PROVIDERS: PCP Internal Medicine; Visit Provider Nurse Practitioner Family | DX: M54.50 Low back pain, unspecified (principal); M53.3 Sacrococcygeal disorders, not elsewhere classified; M79.7 Fibromyalgia; M47.817 Spondylosis without myelopathy or radiculopathy, lumbosacral region | CPT/HCPCS: 99212 ==